=== PATIENT | female | born 2000 | race Hispanic/Latino ===

== ENCOUNTER 2022-05-02 21:48 | Emergency (ER) | payer OTHER ==
--- OUTSIDE RECORDS SUMMARY | 2022-05-02 21:52 | XMS REPORT | Continuity of Care Document ---
:2000 Author Organization [facility] t Address [address] [place] [address] Care Team Providers Name Role Phone Stefany Coffey Primary Care Physician SIDDHARTH HANSEN Attending Clinician Unavailable Nurse, Pob Immunization Attending Clinician Unavailable Siddharth Hansen DO Attending Clinician Nicholas ANGELES Attending Clinician Unavailable Nicholas Rome Attending Clinician INDUCTION Attending Clinician Unavailable Stefany APPIAH Attending Clinician Unavailable Bijal DUNHAM, R Attending Clinician FISH Attending Clinician Unavailable Zeenat WATTS Attending Clinician Unavailable Payers Payer Name Policy Type Policy Number Effective Date Expiration Date Varun walker [facility] [id number] 2020 CHOICE MEDICAID 00:00:00 [facility] [id number] 2015 CHOICE CHIP 00:00:00 Problems Condition Condition Condition Status Onset Resolution Last Treating Co mments Source Name Details Category Date Date Treatment Clinician Date Gestationa Gestationa Disease Active U nivers l l 8-11 ity of hypertensi [place]ens[place] Obesity Obesity Disease Active Univers (BMI (BMI 8-09 ity of 30-39.9) 30-39.9) 00:00: [place] 00 Medical Branch Nausea and Nausea and Disease Active U nivers vomiting vomiting 4-21 ity of during during 00:00: [place] 00 Medi tracy prior to prior to Branch 22 weeks 22 weeks gestation gestation Maternal Maternal Disease Active Overview: Un stevan varicella, varicella, 3-25 Formattin ity of non-immune non-immune 00:00: g of this [place] 00 note Medical might be Branch different from the original. Will address in PP. Primigravi Primigravi Disease Active U nivers da in da in 24 ity of second second 00:00: [place] trimester trimester 00 [facility] Branch Supervisio Supervisio Disease Resolve 2021-03-05 2021-03-05 Univers n of high n of high d 02-05 00:00:00 14:50:25 ity of risk risk 00:00: [place] 00 Medi tracy in second in second Bran ch trimester trimester Allergies, Adverse Reactions, Alerts Allergy Allergy Status Severity Reaction(s) Onset Inactive Treating Comm ents Source Name Type Date Date Clinician NO KNOWN Drug Active Univers ALLERGIE Class ity of S [facility] Social History Social Habit Start Date Stop Date Quantity Comments Source ASSERTION 2020-11-12 University of 00:00:00 [facility] Exposure to Not sure University of SARS-CoV-2 [facility] (event) Branch History [facility] o f Alcohol Comment [place] Med ical Branch Alcohol intake 2021-08-20 2021-08-20 Lifetime University of 00:00:00 00:00:00 non-drinker [facility] (finding) Branch Tobacco use and 2021-03-05 2021-03-05 Never used Universit y of exposure 00:00:00 00:00:00 [place] Medical [facility] History SDOH 2020-12-05 2020-12-05 1 University o f Alcohol Frequency 00:00:00 00:00:00 [place] M edical Branch History SDOH 2020-12-05 2020-12-05 99 University o f Alcohol Std 00:00:00 00:00:00 [place] Medical Drinks Branch History SDWY 2020-12-05 2020-12-05 1 University o f Alcohol Binge 00:00:00 00:00:00 [place] Medic al Branch Sex Assigned At [birth year] Universit y of 00:00:00 00:00:00 [facility] Smoking Status Start Date Stop Date Source Never smoker [facility] Branch Medications Ordered Filled Start Stop Current Ordering Indication Dosage Frequency Signature Comments Components Source Medication Medication Date Date Medication? Clinician (SIG) Name Name KACEY ABEL 2020-11 Yes [id number] 1{tbl} Take 1 Univers (MICROGESTI 0-06 tablet by ity of N FE 12/04) 00:00: mouth [place] 1 mg-20 mcg 00 daily. Medica l (21)/75 mg Branch (7) tablet albuterol 2020-11 Yes [id number] 2{puff} Inhale 2 Univers 90 0-06 Puffs ity of mcg/actuati 00:00: every 6 [place] as on inhaler 00 (six) Medical hours as Branch needed for Wheezing or Shortness of Breath. LOESTRIN FE 2020-11 Yes [id number] 1{tbl} Take 1 Univers (MICROGESTI 0-06 tablet by ity of N FE 12/04) 00:00: mouth [place] 1 mg-20 mcg 00 daily. Medica l (21)/75 mg Branch (7) tablet albuterol 2020-11 Yes [id number] 2{puff} Inhale 2 Univers 90 0-06 Puffs ity of mcg/actuati 00:00: every 6 [place] on inhaler 00 (six) Medical hours as Branch needed for Wheezing or Shortness of Breath. LOESTRIN FE 2020-11 Yes [id number] 1{tbl} Take 1 Univers (MICROGESTI 0-06 tablet by ity of N FE 12/04) 00:00: mouth [place] 1 mg-20 mcg 00 daily. Medica l (21)/75 mg Branch (7) tablet albuterol 2020-11 Yes [id number] 2{puff} Inhale 2 Univers 90 0-06 Puffs ity of mcg/actuati 00:00: every 6 [place] on inhaler 00 (six) Medical hours as Branch needed for Wheezing or Shortness of Breath. docusate Yes [id number] 240mg Take 1 Un stevan calcium 240 8-11 capsule by it y of mg capsule 00:00: mouth [place] 00 daily as Medical needed for Branch Constipati on. ibuprofen Yes [id number] 600mg Take 1 U nivers 600 mg 8-11 tablet by ity of tablet 00:00: mouth [place] 00 every 6 Medical (six) Branch hours as needed (Pain). Take with food or milk. docusate Yes [id number] 240mg Take 1 Un [place] calcium 240 8-11 capsule by it y of mg capsule 00:00: mouth [place] 00 daily as Medical needed for Branch Constipati on. ibuprofen Yes [id number] 600mg Take 1 U nivers 600 mg 8-11 tablet by ity of tablet 00:00: mouth [place] 00 every 6 Medical (six) Branch hours as needed (Pain). Take with food or milk. docusate Yes [id number] 240mg Take 1 Un tsevan calcium 240 8-11 capsule by it y of mg capsule 00:00: mouth once [place] 00 daily as Medical needed for Branch Constipati on. ibuprofen Yes [id number] 600mg Take 1 U nivers 600 mg 8-11 tablet by ity of tablet 00:00: mouth [place] 00 every 6 Medical (six) Branch hours as needed (Pain). Take with food or milk. 2020- No [id number] 1{tbl} Take 1 Univers [id number] 06-25- tablet by it y of fum-folic 00:00: 00:00 mouth [place] () 00 :00 daily. Medical 27 mg iron- Branch 1 mg Tab ferrous 2020- No [id number] 325mg Take 1 Un [place] sulfate 325 06-25 tablet by it y of mg (65 mg 00:00: 00:00 [place] iron) 00 :00 (two) Medical tablet times Branch daily. proMETHazin Yes Nausea and 25mg Take 1 Univers e 25 mg 4-12 vomiting tablet by ity of tablet 00:00: during mouth 00 every 4 Medical prior to 22 (four) Branch weeks hours as gestation needed for Nausea and Vomiting (N/V). levalbutero Yes History of 1{puff} Inhale 1-2 Univers l 45 3-25 asthma Puffs ity of mcg/actuati 00:00: every 4 [place] as on inhaler 00 (four) Medical hours as Branch needed for Wheezing. albuterol Yes History of 2{puff} Inhale 2 Univers 90 3-24 asthma Puffs ity of mcg/actuati 00:00: every 6 [place] on inhaler 00 (six) Medical hours as Branch needed for Wheezing or Shortness of Breath. Yes Positive 1{tbl} Take 1 U nivers vit w/iron 1-21 tablet by ity of fumarate 00:00: test mouth [place] and FA 00 daily. Medical ( Branch VITAMIN WITH MINERALS) tablet SELECT-OB + Yes Univer s DHA 29 mg 1-21 ity of iron-1 mg 00:00: [place] -250 mg 00 Medical combo pack Branch Immunizations Ordered Filled Immunization Date Status Comments [facility] e Immunization Name Name SARS-COV-2 COVID-19 2021-11-14 Completed Unive rsity of PFIZER VACCINE 00:00:00 [facility] SARS-COV-2 COVID-19 2021-10-15 Completed Unive rsity of PFIZER VACCINE 00:00:00 [facility] SARS-COV-2 COVID-19 2021-10-15 Completed Unive rsity of PFIZER VACCINE 00:00:00 [facility] TDAP 2021-05-26 Completed University 00:00:00 [facility] TDAP 2021-05-26 Completed [facility] 00:00:00 [facility] TDAP 2021-05-26 Completed [facility] 00:00:00 [facility] Vital Signs Vital Name Observation Time Observation Value Comments Source Systolic blood 2021-08-20 18:34:00 113 mm[Hg] Univer sity of pressure [facility] Diastolic blood 2021-08-20 18:34:00 72 mm[Hg] Unive rsity of pressure [facility] Heart rate 2021-08-20 18:34:00 81 /min [facility] Body temperature 2021-08-20 18:34:00 37 [place] [facility] Respiratory rate 2021-08-20 18:34:00 18 /min [facility] Body height 2021-08-20 18:34:00 157.5 cm [facility] Body weight 2021-08-20 18:34:00 75.388 kg [facility] BMI 2021-08-20 18:34:00 30.40 kg/m2 [facility] Body mass index 2021-08-20 18:34:00 93.76 % Unive rsity of (BMI) [Percentile] [facility] ical Per age and sex Branch Procedures Procedure Date / Time Performed Performing Clinician Sour e SARS-COV-2 COVID-19 2021-11-14 21:27:24 Doctor Unassigned, No Un iversity of [place] VACCINE,0.3ML,IM Name Medical Branch (PFIZER) SARS-COV-2 COVID-19 2021-10-15 19:38:05 Doctor Unassigned, No Un iversity of [place] VACCINE,0.3ML,IM Name Medical Branch (PFIZER) POCT TEST 2021-08-20 19:03:00 [place] [facility] Plan of Care Planned Activity Planned Date Details Comments Source Future Scheduled 2022-02-05 DTaP,Tdap,and Td Postponed from Unive rsity of Test 00:00:00 Vaccines (1 - Tdap) 2020 [place] Me dical [code = (Alternative Branch DTaP,Tdap,and Td Guidelines) Vaccines (1 - Tdap)] Future Scheduled 2022-02-05 MENINGOCOCCAL B Postponed from Univer sity of Test 00:00:00 VACCINES (1 of 2 - 2011 [place] Med ical Risk Bexsero 2-dose ( or Branch series) [code = ) MENINGOCOCCAL B VACCINES (1 of 2 - Risk Bexsero 2-dose series)] Future Scheduled 2022-02-05 VARICELLA VACCINES Postponed from Uni versity of Test 00:00:00 (1 of 2 - 2-dose 2002 [place] Medic al childhood series) ( or Branch [code = VARICELLA ) VACCINES (1 of 2 - 2-dose childhood series)] Future Scheduled 2022-02-05 Well child visit Univers ity of Test 00:00:00 (procedure) [code = [place] Me dical [id number]] Branch Future Scheduled 2022-02-05 Screening for University of Test 00:00:00 Chlamydia [place] Medical trachomatis Branch (procedure) [code = 692252931] Future Scheduled 2022-01-27 HPV VACCINES (1 - Postponed from Univ ersity of Test 00:00:00 2-dose series) [code 2012 [place] M edical = HPV VACCINES (1 - ( or Branch 2-dose series)] ) Future Scheduled 2021-12-26 Depression screening Uni versity of Test 00:00:00 (procedure) [code = [place] Me dical [id number]] Branch Future Scheduled 2021-07-16 INFLUENZA VACCINE Univer sity of Test 00:00:00 (Season Ended) [code [place] M edical = INFLUENZA VACCINE Branch (Season Ended)] Future Scheduled 2019 Hepatitis C University of Test 00:00:00 screening [place] Medical (procedure) [code = Branch [id number]] Future Scheduled 2017 SARS-CoV-2 University of Test 00:00:00 (COVID-19) Vaccine [place] Med ical (1) [code = Branch SARS-CoV-2 (COVID-19) Vaccine (1)] Encounters Start End Encounter Admission Attending Care Care Encounter Source Date/Time Date/Time Type Type Clinicians Facility Department ID 2021-09-15 Outpatient [facility] [id number] Univers 14:15:47 [facility] 2021-11-14 2021-11-14 Outpatient Stefany HANSEN [facility] [id number] Univers 15:30:00 15:30:00 EVAN [facility] 2021-11-14 2021-11-14 Imm/Inj Nurse, Adc Pob Immunization [facility] [id number] Univers 15:30:00 15:30:00 Visit Evan Hansen [id number] [facility] [id number] Nashmiguel a varun PROFESSIO [phone] Me dical NAL [address] Branch [facility] 2021-11-13 2021-11-13 Outpatient Stefany ANGELES [facility] [id number] Univers 12:45:00 12:45:00 SADE [id number] [facility] 2021-11-13 2021-11-13 Outpatient Stefany ANGELES [facility] [id number] Univers 12:45:00 12:45:00 SADE [facility] 2021-11-10 2021-11-10 Outpatient Stefany HANSEN [facility] [id number] Univers 10:50:00 10:50:00 EVAN ginger [facility] 2021 2021 Outpatient Stefany HANSEN [facility] [id number] Univers 08:30:00 08:30:00 EVAN ginger [facility] 2021-10-15 2021-10-15 Outpatient Stefany HANSEN [facility] [id number] Univers 13:00:00 13:02:34 EVAN ginger [facility] 2021-10-15 2021-10-15 Imm/Inj Nurse, Adc Pob Immunization [facility] [id number] Univers 12:58:49 13:02:[address] [facility] [id number] ity [facility] [id number] [place] PROF[place] [phone] [place] [address] 2021-08-20 2021-08-20 Office Karthik [facility] [id number] Univers 13:12:36 14:00:07 Visit Sade Peterson [employer] [id number] it y [facility] [id number] [place] as MATERNAL [phone] Med ical & CHILD [address] [place] [address] 2021-08-20 2021-08-20 Outpatient Stefany ANGELES [facility] [id number] Univers 13:15:00 13:15:00 SADE [id number] [facility] 2021-08-20 2021-08-20 Outpatient Stefany ANGELES [facility] [id number] Univers 13:15:00 13:15:00 SADE ginger [facility] 2021-08-07 2021-08-07 Outpatient Stefany ANGELES [facility] [id number] Univers 10:15:00 10:15:00 SADE [id number] [facility] 2021-08-07 2021-08-07 Outpatient Stefany ANGELES [facility] [id number] Univers 10:15:00 10:15:00 SADE dee [facility] 2021-08-05 2021-08-05 Outpatient Stefany ANGELES [facility] [id number] Univers 11:00:00 11:00:00 SADE [id number] [facility] 2021-08-05 2021-08-05 Outpatient Stefany ANGELES [facility] [id number] Univers 11:00:00 11:00:00 SADE itginger [facility] 2021-07-29 2021-07-29 Outpatient INDUCTION, [facility] [id number] Univers 08:00:00 08:00:00 MAYLIN [id number] ity [facility] 2021-07-15 2021-07-15 Outpatient R KARTHIK, [facility] [id number] Univers 10:45:00 10:45:00 SADE dee [facility] 2021-07-07 2021-07-07 Outpatient R APPIAH, [facility] [id number] Univers 08:15:00 08:15:[id number] ity [address] [facility] 2021-07-07 2021-07-07 Outpatient R APPIAH, [facility] [id number] Univers 08:15:00 08:15:00 LYNSEYNDA ity o f [facility] 2021-06-25 2021-06-25 Outpatient R BIJAL, [facility] [id number] Univers 08:45:00 08:45:[id number] it[address] [facility] 2021-06-25 2021-06-25 Outpatient R APPIAH, [facility] [id number] Univers 08:45:00 08:45:00 ROSYURINDA ity o f [facility] 2021-06-23 2021-06-23 Outpatient R BIJAL, [facility] [id number] Univers 18:00:00 18:00:00 MICHAEL [id number] ity o f [facility] 2021-06-23 2021-06-23 Outpatient R BIJAL, [facility] [id number] Univers 18:00:00 18:00:00 LYNSEYNDA ity o f [facility] 2021-06-11 2021-06-11 Outpatient R BIJAL [facility] [id number] Univers 10:45:00 10:45:00 LYNSEYNDMiguel A [id number] ity o f [facility] 2021-06-11 2021-06-11 Outpatient R APPIAH, [facility] [id number] Univers 10:45:00 10:45:00 ROSYURINDA ity o f [facility] 2021-05-26 2021-05-26 Outpatient R BIJAL [facility] [id number] Univers 16:15:00 16:15:00 MICHAEL [id number] ity o f [facility] 2021-05-26 2021-05-26 Outpatient R BIJAL [facility] [id number] Univers 16:15:00 16:15:00 MICHAEL ity o f [facility] 2021-05-20 2021-05-20 Outpatient R BIJAL [facility] [id number] Univers 09:30:00 09:30:00 MICHAEL [id number] ity o f [facility] 2021-05-20 2021-05-20 Outpatient R BIJAL [facility] [id number] Univers 09:30:00 09:30:[address] [facility] 2021-05-08 2021-05-08 Outpatient R [facility] [id number] Univers 08:30:00 08:30:00 [id number] ity of [facility] 2021-05-08 2021-05-08 Outpatient R [facility] [id number] Univers 08:30:00 08:30:00 ity of [facility] 2021-05-07 2021-05-07 Outpatient R [facility] [id number] Univers 08:00:00 08:00:00 [id number] ity [facility] 2021-05-07 2021-05-07 Outpatient R [facility] [id number] Univers 08:00:00 08:00:00 ity of [facility] 2021-05-05 2021-05-05 Outpatient R BIJAL [facility] [id number] Univers 10:45:00 10:45:00 LYNSEYNDMiguel A [id number] ity o [facility] 2021-05-05 2021-05-05 Outpatient R BIJAL [facility] [id number] Univers 10:45:00 10:45:[address] [facility] 2021-04-07 2021-04-07 Outpatient R BIJAL [facility] [id number] Univers 13:45:00 13:45:00 MICHAEL [id number] ity o f [facility] 2021-04-07 2021-04-07 Outpatient R BIJAL [facility] [id number] Univers 13:45:00 13:45:00 MICHAEL ity o f [facility] 2021-04-02 2021-04-02 Outpatient R BIJAL [facility] [id number] Univers 09:30:00 09:30:00 MICHAEL [id number] ity o f [facility] 2021-04-02 2021-04-02 Outpatient R BIJAL [facility] [id number] Univers 09:30:00 09:30:00 MICHAEL ity o f [facility] 2021-03-19 2021-03-19 Outpatient R [facility] [id number] Univers 08:30:00 08:30:00 [id number] [facility] 2021-03-19 2021-03-19 Outpatient P [facility] [id number] Univers 08:30:00 08:30:00 ity [facility] 2021-03-05 2021-03-05 Outpatient R BIJAL [facility] [id number] Univers 09:00:00 09:00:00 MICHAEL [id number] ity o f [facility] 2021-03-05 2021-03-05 Outpatient R BIJAL [facility] [id number] Univers 09:00:00 09:00:00 MICHAEL ity o f [facility] 2021-02-10 2021-02-10 Outpatient [facility] [id number] Univers 08:15:00 08:15:00 [id number] ity [facility] 2021-02-10 2021-02-10 Outpatient R BIJAL [facility] [id number] Univers 08:15:00 08:15:[address] [facility] 2021-02-05 2021-02-05 Outpatient BIJAL [facility] [id number] Univers 13:30:00 13:30:00 MICHAEL [id number] ity o f [facility] 2021-02-05 2021-02-05 Outpatient R BIJAL [facility] [id number] Univers 13:00:00 13:00:00 TIMA ity o f [facility] 2021-01-23 2021-01-23 Outpatient R SRIKANTH ZARATE [facility] [id number] Univers 10:30:00 10:30:00 [id number] ity [facility] 2021-01-23 2021-01-23 Outpatient R SRIKANTH ZARATE [facility] [id number] Univers 10:30:00 10:30:00 ity of [facility] 2020-12-26 2020-12-26 Outpatient R SRIKANTH ZARATE [facility] [id number] Univers 10:30:00 10:30:00 [id number] ity [facility] 2020-12-26 2020-12-26 Outpatient R SRIKANTH ZARATE [facility] [id number] Univers 10:30:00 10:30:00 ity [facility] 2020-12-07 2020-12-07 Outpatient R [facility] [id number] Univers 09:15:00 09:15:00 [id number] ity [facility] 2020-12-07 2020-12-07 Outpatient R [facility] [id number] Univers [facility]:15:[facility] 2020-12-05 Outpatient R SRIKANTH ZARATE [facility] [id number] Univers 11:00:00 11:00:00 [id number] ity [facility] 2020-12-05 2020-12-05 Outpatient R SRIKANTH ZARATE [facility] [id number] Univers 11:00:00 11:00:00 ity [facility] 2020-11-27 2020-11-27 Outpatient AKINSIPE [facility] [id number] Univers 14:30:00 14:30:00 [place] [id number] ity o f [facility] Results Test Description Test Time Test Comments Results Result Comments Source POCT TEST 2021-08-20 19:03:00 Test Item Value Reference Range Interpretation Comme nts POCT PREG (test code = 1605) Negative On board controls acceptable with C Line (test code = 3574) Yes POCT PREG LOT # (test code = 3575) POCT PREG TEST DATE (test code = 3576) [facility]
[2022-05-02 22:50] LABS: Urine Blood Negative (Negative); Urine Glucose Negative (Negative); Urine Protein Negative (Negative); Urine Specific Gravity >=1.030 (1.005-1.030); Urine pH 6.5 (5.0-7.0)
[2022-05-02 23:16] LABS: Absolute Lymphocytes (CBC) 2.7 K/uL (0.7-4.9); Hematocrit 40.1 % (36.0-45.0); Lymphocytes % 35.1 % (15.3-44.8); MPV 8.2 fL (7.6-11.3); RBC Red Blood Cell Count 4.56 M/uL (3.86-4.86)
[2022-05-02] MEDS ORDERED: MORPHINE 4 MG/ML SYR ONE (23:20)
[2022-05-02] MEDS ORDERED: ONDANSETRON 4 MG/2 ML VIAL ONE (23:20)
[2022-05-02 23:37] LABS: Albumin 3.3 g/dL (3.4-5.0); Bilirubin Total 0.1 mg/dL (0.2-1.0); Potassium 3.7 mmol/L (3.5-5.1)
--- NOTE | 2022-05-03 04:58 | ER ---
Nurse's Notes [facility] Name: Yesy Mcdonnell Age: 21 yrs Sex: Female : 2000 Arrival Date: 05/02/2022 Time: 21:51 Bed 15 Private MD: Diagnosis: Lower abdominal pain, unspecified Presentation: 05/02 22:08 Chief complaint: Patient states: Lower abdominal pain since yesterday getting worse ke1 today. Coronavirus screen: Vaccine status: Patient reports receiving the 2nd dose of the covid vaccine. Ebola Screen: No symptoms or risks identified at this time. Risk Assessment: Do you want to hurt yourself or someone else? Patient reports no desire to harm self or others. Onset of symptoms was May 01, 2022 at 09:00. 22:08 Method Of Arrival: Ambulatory ke1 22:08 Acuity: ZAIRA 3 ke1 22:19 Initial Sepsis Screen: Does the patient meet any 2 criteria? No. Patient's initial ke1 sepsis screen is negative. Does the patient have a suspected source of infection? No. Patient's initial sepsis screen is negative. Triage Assessment: 22:12 Pain: Complains of pain in pelvis. GI: Abdomen is round non-distended. ke1 22:19 General: Appears in no apparent distress. Behavior is appropriate for age. ke1 Historical: - Allergies: 22:11 No Known Allergies; ke1 - PMHx: 22:12 None; ke1 - PSHx: 22:12 None; ke1 - Immunization history:: Client reports receiving the 2nd dose of the Covid vaccine. - Social history:: Smoking status: Patient denies any tobacco usage or history of. Screenin:19 Abuse screen: Denies threats or abuse. Nutritional screening: No deficits noted. ke1 Tuberculosis screening: No symptoms or risk factors identified. Fall Risk None identified. Assessment: 23:20 GI: Bowel sounds present X 4 quads. ke1 23:20 GI: Abd is soft. ke1 05/03 00:00 Reassessment: Patient appears in no apparent distress at this time. Patient states ke1 feeling better. Patient states symptoms have improved. 01:00 Reassessment: No changes from previously documented assessment. ke1 02:00 Reassessment: No changes from previously documented assessment. ke1 04:45 Reassessment: No changes from previously documented assessment. ke1 Vital Signs: 05/02 22:13 BP 119 / 75; Pulse 91; Resp 17; Temp 98.7(O); Weight 77.11 kg; Height 5 ft. 2 in. ke1 (157.48 cm); Pain 9/10; 05/03 02:01 BP 114 / 69; Pulse 71; Resp 18; Pulse Ox 99% on R/A; ke1 05/02 22:13 Body Mass Index 31.09 (77.11 kg, 157.48 cm) ke1 ED Course: 05/02 21:51 Patient arrived in ED. [facility] 21:56 Juno Titus PA is PHCP. [facility] 21:56 Robert Macario MD is Attending Physician. [facility] 22:08 Robe Da Silva RN is Primary Nurse. ke1 22:10 Triage completed. ke1 23:19 Inserted saline lock: 20 gauge in left antecubital area, using aseptic technique. ke1 23:20 Arm band placed on. ke1 23:20 Bed in low position. Call light in reach. ke1 05/03 00:37 US Pelvis Complete In Process Unspecified. EDMS 02:32 CT Abd/Pelvis - IV Contrast Only In Process Unspecified. EDMS 05:03 No provider procedures requiring assistance completed. ke1 Administered Medications: 05/02 23:19 Drug: Zofran (Ondansetron) 4 mg Route: IVP; Site: left antecubital; ke1 23:45 Follow up: Response: Marked relief of symptoms ke1 23:19 Drug: morphine 4 mg Route: IVP; Infused Over: 4 mins; Site: left antecubital; ke1 23:50 Follow up: Response: Marked relief of symptoms ke1 Outcome: 05/03 04:57 Discharge ordered by . rn 05:03 Discharged to home ambulatory. ke1 05:03 Condition: good 05:03 Discharge instructions given to patient. 05:10 Patient left the ED. ke1 Signatures: Dispatcher [employer] EDMS Juno Titus PA PA jmm Nieto, Roman, MD MD rn Alexander, Jessica [facility] Robe Da Silva RN RN [facility] Corrections: (The following items were deleted from the chart) 01:55 05/02 23:20 GI: Abd is soft ke1 ke1
--- NOTE | 2022-05-03 04:58 | EDPHYS ---
Physician Documentation [facility] Name: Yesy Mcdonnell Age: 21 yrs Sex: Female : 2000 Arrival Date: 05/02/2022 Time: 21:51 Bed 15 Private MD: ED Physician Robert Macario HPI: 05/02 22:13 This 21 yrs old Female presents to ER via Ambulatory with complaints of jmm Abdominal Cramping. 22:13 The patient presents with pelvic pain. Onset: The symptoms/episode began/occurred jmm gradually, 1 day(s) ago. This is a 21-year-old female with no chronic medical conditions that presents to the emergency department with complaints of pelvic pain which radiates to her back. Pain is mainly to the right lower pelvic region. Patient denies vomiting or diarrhea. Denies fever. Patient denies vaginal discharge. Patient denies dysuria.. Historical: - Allergies: 22:11 No Known Allergies; ke1 - PMHx: 22:12 None; ke1 - PSHx: 22:12 None; ke1 - Immunization history:: Client reports receiving the 2nd dose of the Covid vaccine. - Social history:: Smoking status: Patient denies any tobacco usage or history of. ROS: 22:13 Constitutional: Negative for fever, chills, and weight loss, Cardiovascular: Negative jmm for chest pain, palpitations, and edema, Respiratory: Negative for shortness of breath, cough, wheezing, and pleuritic chest pain. 22:13 : Positive for pelvic pain. 22:13 All other systems are negative. Exam: 22:13 Constitutional: This is a well developed, well nourished patient who is awake, alert, jmm and in no acute distress. Head/Face: atraumatic. Eyes: EOMI, no conjunctival erythema appreciated ENT: Moist Mucus Membranes Neck: Trachea midline, Supple Chest/axilla: Normal chest wall appearance and motion. Cardiovascular: Regular rate and rhythm. No edema appreciated Respiratory: Normal respirations, no respiratory distress appreciated 22:13 Back: Normal ROM Skin: General appearance color normal MS/ Extremity: Moves all extremities, no obvious deformities appreciated, no edema noted to the lower extremities Neuro: Awake and alert Psych: Behavior is normal, Mood is normal, Patient is cooperative and pleasant 22:13 Abdomen/GI: Inspection: abdomen appears normal, Bowel sounds: normal, Palpation: soft, mild abdominal tenderness, in the suprapubic area. Vital Signs: 22:13 BP 119 / 75; Pulse 91; Resp 17; Temp 98.7(O); Weight 77.11 kg; Height 5 ft. 2 in. ke1 (157.48 cm); Pain 9/10; 05/03 02:01 BP 114 / 69; Pulse 71; Resp 18; Pulse Ox 99% on R/A; ke1 05/02 22:13 Body Mass Index 31.09 (77.11 kg, 157.48 cm) ke1 MDM: 05/02 22:13 Patient medically screened. [facility] 05/03 04:50 Differential diagnosis: , ectopic , ovarian cyst, pelvic pain, abd rn pain. Data reviewed: vital signs, nurses notes, lab test result(s), radiologic studies, ultrasound, and as a result, I will discharge patient. Counseling: I had a detailed discussion with the patient and/or guardian regarding: the historical points, exam findings, and any diagnostic results supporting the discharge/admit diagnosis, lab results, radiology results, the need for outpatient follow up, to return to the emergency department if symptoms worsen or persist or if there are any questions or concerns that arise at home. ED course: Pt left to me by Juno Titus at shift change pending ct abdomen. States u/s normal. Plan was to dc if ct abdomen neg.. 04:57 Response to treatment: the patient's symptoms have markedly improved after treatment, rn and as a result, I will discharge patient. Special discussion: Based on the patient's Hx, exam, and Dx evaluation, there is no indication for emergent surgery or inpatient Tx. It is understood by the patient/guardian that if the Sx's persist or worsen they need to return immediately for re-evaluation. I discussed with the patient/guardian in detail that at this point there is no indication for admission to the hospital. It is understood, however, that if the symptoms persist or worsen the patient needs to return immediately for re-evaluation. 05/02 22:13 Order name: CBC with Diff; Complete Time: 23:19 [facility] 05/02 22:13 Order name: CMP; Complete Time: 23:38 [facility] 05/02 22:13 Order name: Lipase; Complete Time: 23:38 [facility] 05/02 22:17 Order name: US Pelvis Complete [facility] 05/02 22:51 Order name: Urine Dipstick-Ancillary; Complete Time: 23:00 [facility] 05/02 22:13 Order name: IV Saline Lock; Complete Time: 23:19 [facility] 05/02 22:13 Order name: Urine Dipstick-Ancillary (obtain specimen); Complete Time: 22:55 [facility] 05/02 22:13 Order name: Urine Test (obtain specimen); Complete Time: 22:55 [facility] 05/03 00:06 Order name: CT Abd/Pelvis - IV Contrast Only [facility] Administered Medications: 05/02 23:19 Drug: Zofran (Ondansetron) 4 mg Route: IVP; Site: left antecubital; ke1 23:45 Follow up: Response: Marked relief of symptoms 1 23:19 Drug: morphine 4 mg Route: IVP; Infused Over: 4 mins; Site: left antecubital; ke1 23:50 Follow up: Response: Marked relief of symptoms 1 Disposition: 05/03 06:06 Co-signature as Attending Physician, Robert Macario MD. rn Disposition Summary: 05/03/22 04:57 Discharge Ordered Location: Home rn Problem: new rn Symptoms: have improved rn Condition: Stable rn Diagnosis - Lower abdominal pain, unspecified rn Followup: rn - With: Private Physician - When: As needed - Reason: Recheck today's complaints, Re-evaluation by your physician Discharge Instructions: - Discharge Summary Sheet rn - Abdominal Pain, Adult rn - Pain Without a Known Cause rn - Pelvic Pain, Female rn Forms: - Medication Reconciliation Form rn - Thank You Letter rn - Antibiotic title attorney - Prescription Opioid Use rn Signatures: Dispatcher [employer] MS Juno Titus PA PA jmm Nieto, Roman, MD MD rn Ebrottie, Kouassi, RN RN ke1
[2022-05-03 05:20] VITALS: TEMP 98.7
[2022-05-03 05:22] VITALS: BP 114/69; O2SAT 99
--- NOTE | 2022-05-04 13:19 | RAD REPORT ---
EXAM DESCRIPTION: CT - Abdomen Pelvis W Contrast - 05/03/2022 6:51 am COMPARISON: None CLINICAL HISTORY: [facility] MAIN TECHNIQUE: Multiple helical axial images were obtained through the abdomen and pelvis using intraven ous contrast. Coronal and sagittal reformatted images were obtained. All CT scans at this facility use dose modulation, iterative reconstruction, and/or weight-based dosi ng when appropriate to reduce radiation dose to as low as reasonably achievable. FINDINGS: Lung bases: Appear unremarkable. Liver: There is low-attenuation suggesting fatty changes. Gallbladder/biliary: Appears unremarkable Pancreas: Unremarkable. No evidence of ductal enlargement. Spleen: Appears unremarkable. No splenomegaly. Adrenals: Unremarkable. Kidneys and ureters: No evidence of hydronephrosis. Normal enhancement. Bladder: Unremarkable. Pelvic organs: Unremarkable. Bowel: No evidence of bowel obstruction. No bowel wall thickening. Appendix appears unremarkable. Vasculature: Unremarkable. Peritoneum: No free air. No significant free fluid. Lymph nodes: Unremarkable. Soft tissues: Unremarkable. Bones: Unremarkable. IMPRESSION: 1. No evidence for an acute process within the abdomen or pelvis. 2. Hepatic steatosis. Electronically signed by: Nuno Olson MD 05/03/2022 4:49 AM CDT Due to temporary technical issues with the PACS/Fluency reporting system, reports are being signed by the in house radiologist without review as a courtesy to ensure prompt reporting. The interpreting r adiologist is fully responsible for the content of the report.
--- NOTE | 2022-05-04 13:23 | RAD REPORT ---
EXAM DESCRIPTION: US - Pelvis Complete - 05/03/2022 12:35 am CLINICAL HISTORY: 21 years Female pelvic pain TECHNIQUE: Transabdominal ultrasound with color doppler and spectral imaging analysis. Comparison: None FINDINGS: Uterus: Retroverted 10.7 x 4.0 x 3.8 cm. No uterine masses. Endometrial thickness measurin g 3 mm. Right ovary: Measures 3.0 x 2.4 x 2.5 cm. Normal vascular flow on Doppler. Left ovary: Measures 2.1 x 1.8 x 1.9 cm. Normal vascular flow on Doppler. Adnexa: Unremarkable Fluid: None. IMPRESSION: Vascular flow is demonstrated in both ovaries. Electronically signed by: Abran Tracey MD 05/03/2022 1:36 AM CDT Due to temporary technical issues with the PACS/Fluency reporting system, reports are being signed by the in house radiologist without review as a courtesy to ensure prompt reporting. The interpreting r adiologist is fully responsible for the content of the report.
== END 2022-05-03 05:10 | disposition home or self-care (01) ==
LOC: ER 21:48
DX: R10.31 Right lower quadrant pain (principal)
CPT/HCPCS: 85025; 36415; 81003; 83690; 80053; 74177; 76856; Q9967; J2405; 96374; 96375; 99283

== ENCOUNTER 2025-06-29 19:23 | Emergency (ER) | payer OTHER ==
--- OUTSIDE RECORDS SUMMARY | 2025-06-29 19:40 | XMS REPORT | Continuity of Care Document ---
Author Name Unknown Address [address] [facility] [place] [address] Organization [facility] [place] Address [address] [facility] [place] [address] Care Team Providers Care Program Architect Name Role Phone Tanisha Rome Primary Care Physician LUIS ANTONIO HARVEY Attending Clinician Unavailable LUIS ANTONIO HARVEY Attending Clinician Unavailable Luis Antonio Harvey MD Attending Clinician [phone] Beatriz Nix Attending Clinician [phone] Marian NINO, Gabi Brunson Attending Clinician [phone] Torrey NINO, Renato Bond Attending Clinician [phone] Reese Pastrana MD Attending Clinician [phone] Quin ESCOBAR, R Attending Clinician [phone] Doctor Unassigned, [place] Attending Clinician U navailable Julieta DO, Devan Attending Clinician [phone] JULIETA, DEVAN Attending Clinician Unavailable JULIETA, DEVAN Attending Clinician Unavailable Pro NINO, Rachelle Guevara Attending Clinician + Susana ZHANG, Fani Olivo Attending Clinician Unavailab Osiel Andrews Attending Clinician [phone], [facility] Attending Clinician Unavailable Rustam Hamlin MD Attending Clinician + RUSTAM HAMLIN Attending Clinician Unav ailable RUSTAM HAMLIN Attending Clinician Unav ailable Eugenia PRIEST, Domitila A Attending Clinician Unavail able CHARLY HANSEN Attending Clinician Unavailable CHARLY HANSEN Attending Clinician Unavailable OLIMPIA PAUL Attending Clinician OLIMPIA Bae Attending Clinician Edmundo Smith MD Attending Clinician [phone] Beverly NINO, Olimpia Attending Clinician + [phone] Karen Bradford RN Attending Clinician UnavailGEOFF Hansen Attending Clinician Unavailable GEOFF PERKINS Attending Clinician Unavailable GEOFF PERKINS Attending Clinician Unavailable Ultrasound, Rosalia Attending Clinician Unavaila jade Perkins MD, Geoff Attending Clinician [phone] DAYAMI ALBA Attending Clinician Unavailable Dayami Alba DNP Attending Clinician [phone] LA JEAN Attending Clinician Unavail able AkinLa Herman Attending Clinician + MAYLIN JAMISON Attending Clinician Unavailable Ruddy Cain MD Attending Clinicia n Williams Peñaloza MD Attending Clinician + [phone] Sapna Flores RN Attending Clinician Unavailable Doctor Unassigned, [place] Attending Clinician U navailable Lab, Ang-Rmchp Attending Clinician Unavailable KAREN DO Attending Clinician Unavailable Risk, Ucv-Snagu-Hm/High Attending Clinician Unav ailable Karen Quintanilla Attending Clinician + [phone] CINDY OWENS Attending Clinician Unavaila jade Provider, MimiRmjillian Temp Attending Clinician Marina vailaCindy Ventura CNM Attending Clinician [phone] Abby Aly MD Attending Clinician +[phone] ABBY ALY Attending Clinician Unavailable Visit, MimiRmchjoao Nurse Attending Clinician Unava sobia Green RN, Charleen Attending Clinician Unavailabl jasmine Lemus RPHDl Attending Clinician Unavailable Faculty, Shayan Brasher Mfm Attending Clinician Unava sobia DUNHAM, Nazia Mccall Attending Clinician + [phone] KALEY VOGT Attending Clinician UnavailKALEY Knox Attending Clinician Unavailabl jasmine Coley MD, Polanco Attending Clinician + AIRAM STEELE Attending Clinician Unav ailNAZIA Mata Attending Clinician Unavailab EVAN Tineo Attending Clinician Unavail able Nurse, Adc Pob Immunization Attending Clinician Unavailable Evan Hansen DO Attending Clinician [phone] COLETTE ANGELES Attending Clinician Unavailjamari Angeles [employer] SUPER[employer]OR, Colette Peterson Attending Clinician [phone] Charly Hansen MD Attending Clinician [phone] SRIKANTH HOWARD Attending Clinician Unavailable Pob, Adc Lab Main Attending Clinician UnavailSrikanth Wei MD Attending Clinician [phone] LUIS ANTONIO HARVEY Admitting Clinician Unavailable OLIMPIA PAUL Admitting Clinician Unamiesha HARVEY LUIS ANTONIO CAM Admitting Clinician Unavailable Wes NINO, Luis Antonio Cuevas Admitting Clinician [phone] Olimpia Paul MD Admitting Clinician + [phone] Geoff Perkins MD Admitting Clinician [phone] Payers Payer Name Policy Type Policy Number Effective Date Expirati on Date Source [facility] [id number] 2024 00:00:00 [place] [id number] 2024 00:00:00 [facility] CHIP [id number] 2015 00:00:00 Problems Condition Name Condition Details Condition Category Status Onset Date Resolution Date Last Treatment Date Treating Clinician Comments Source 34 weeks gestation of 34 weeks gestation of Disease Active 4 00:00: 00 [facility] Gestationa l hypertensi on Gestationa l hypertensi on Disease Active 06-25 00:00: 00 [facility] Obesity (BMI 30-39.9) Obesity (BMI 30-39.9) Disease Active 8-09 00:00: 00 [facility] Maternal varicella, non-immune Maternal varicella, non-immune Disease Active 3-25 00:00: 00 Overview: Formattin g of this note might be different from the original. Will address in PP. [facility] Normal labor Normal labor Disease Resolve d 0 5-21 00:00: 00 2025-05-25 00:00:00 2025-05-25 09:38:49 [facility] 38 weeks gestation of 38 weeks gestation of Disease Resolve d 0 5- 00:00: 00 2025-05-25 00:00:00 2025-05-25 09:38:48 [facility] Uterine contractio ns at greater than 20 weeks of gestation Uterine contractio ns at greater than 20 weeks of gestation Disease Resolve d 0 5- 00:00: 00 2025-05-25 00:00:00 2025-05-25 09:38:58 [facility] History of delivery History of delivery Disease Resolve d 2023-11 1-25 00:00: 00 2025-05-25 00:00:00 2025-05-25 09:38:50 [facility] Liveborn infant, of verdin , born in hospital by vaginal delivery Liveborn infant, of verdin , born in hospital by vaginal delivery Disease Resolve d 0 3-21 00:00: 00 2025-05-25 00:00:00 2025-05-25 09:38:51 [facility] Asthma affecting , antepartum Asthma affecting , antepartum Disease Resolve d 2021-11 1-27 00:00: 00 2025-05-25 00:00:00 2025-05-25 09:36:30 [facility] Abnormal thyroid blood test Abnormal thyroid blood test Disease Resolve d 2021-11 0-25 00:00: 00 2025-05-25 00:00:00 2025-05-25 09:38:53 Overview: Formattin g of this note might be different from the original. consulted with Orly Maradiaga - Will not start on meds at this time. Please collect TFTs in 3- 4 wks. [facility] High-risk in third trimester High-risk in third trimester Disease Resolve d 2021-0 8-19 00:00: 00 2025-05-25 00:00:00 2025-05-25 09:36:30 [facility] Supervisio n of high risk , antepartum Supervisio n of high risk , antepartum Disease Resolve d 2020-0 3-24 00:00: 00 2025-05-25 00:00:00 2025-05-25 09:38:56 [facility] BV (bacterial vaginosis) BV (bacterial vaginosis) Disease Resolve d 2024-0 5-10 00:00: 00 2025-04-04 00:00:00 2025-04-04 10:37:39 [facility] Left chest pressure Left chest pressure Disease Resolve d 2024-0 5-09 00:00: 00 2025-04-04 00:00:00 2025-04-04 10:37:35 [facility] uterine contractio ns in third trimester, antepartum uterine contractio ns in third trimester, antepartum Disease Resolve d 2024-0 5-09 00:00: 00 2025-04-04 00:00:00 2025-04-04 10:37:33 [facility] Vaginal discharge during in third trimester Vaginal discharge during in third trimester Disease Resolve d 2024-0 4-23 00:00: 00 2025-04-04 00:00:00 2025-04-04 10:37:31 [facility] Decreased movements in third trimester, single or unspecifie d fetus Decreased movements in third trimester, single or unspecifie d fetus Disease Resolve d 2024-0 2-27 00:00: 00 2025-04-04 00:00:00 2025-04-04 10:37:38 [facility] 36 weeks gestation of 36 weeks gestation of Disease Resolve d 2024-0 4-23 00:00: 00 2025-03-30 00:00:00 2025-03-30 10:14:48 [facility] 26 weeks gestation of 26 weeks gestation of Disease Resolve d 2024-0 2-27 00:00: 00 2025-01-26 00:00:00 2025-01-26 12:46:55 [facility] Nausea and vomiting during prior to 22 weeks gestation Nausea and vomiting during prior to 22 weeks gestation Disease Resolve d 2020-0 4-21 00:00: 00 2025-01-11 00:00:00 2025-01-11 10:47:06 [facility] Routine follow-up Routine follow-up Disease Resolve d 2022-0 4-12 00:00: 00 2023-03-23 00:00:00 2023-03-23 14:52:19 [facility] Obesity in Obesity in Disease Resolve d 2020-0 7-28 00:00: 00 2023-03-23 00:00:00 2023-03-23 14:50:39 [facility] Oligohydra mnios in third trimester Oligohydra mnios in third trimester Disease Resolve d 2022-0 3-21 00:00: 00 2023-02-24 00:00:00 2023-02-24 16:00:07 [facility] Back pain affecting Back pain affecting Disease Resolve d 2021-1 1-27 00:00: 00 2023-02-24 00:00:00 2023-02-24 16:00:17 [facility] Multiparit y Multiparit y Disease Resolve d 2021-0 8-10 00:00: 00 2023-02-24 00:00:00 2023-02-24 16:00:10 [facility] History of premature rupture of membranes (PPROM) History of premature rupture of membranes (PPROM) Disease Resolve d 2021-0 8-10 00:00: 00 2023-02-24 00:00:00 2023-02-24 16:00:14 [facility] History of gestationa l hypertensi on History of gestationa l hypertensi on Disease Resolve d 2020-0 8-11 00:00: 00 2023-02-24 00:00:00 2023-02-24 16:00:16 [facility] 37 weeks gestation of 37 weeks gestation of Disease Resolve d 2020-0 8-09 00:00: 00 2023-02-24 00:00:00 2023-02-24 16:00:24 [facility] Obstetrica l laceration Obstetrica l laceration Disease Resolve d 2020-0 8-11 00:00: 00 2021-08-20 00:00:00 2021-08-20 13:14:19 [facility] premature rupture of membranes in third trimester premature rupture of membranes in third trimester Disease Resolve d 2020-0 8-09 00:00: 00 2021-08-20 00:00:00 2021-08-20 13:14:21 [facility] (spontaneo us vaginal delivery) (spontaneo us vaginal delivery) Disease Resolve d 0 8-11 00:00: 00 2021-07-15 00:00:00 2021-07-15 10:51:40 [facility] Single live Single live Disease Resolve d 0 8-11 00:00: 00 2021-07-15 00:00:00 2021-07-15 10:51:42 [facility] Single live Single live Disease Resolve d 0 8-11 00:00: 00 2021-07-15 00:00:00 2021-07-15 10:51:42 [facility] Spotting in Spotting in Disease Resolve d 0 8-09 00:00: 00 2021-07-15 00:00:00 2021-07-15 10:51:27 [facility] Urine frequency Urine frequency Disease Resolve d 0 8-09 00:00: 00 2021-07-15 00:00:00 2021-07-15 10:51:35 [facility] Positive nitrazine test Positive nitrazine test Disease Resolve d 0 8-09 00:00: 00 2021-07-15 00:00:00 2021-07-15 10:51:36 [facility] Primigravi da in third trimester Primigravi da in third trimester Disease Resolve d 3 00:00: 00 2021-07-15 00:00:00 2021-07-15 10:51:30 [facility] Allergies, Adverse Reactions, Alerts Allergy Name Allergy Type Status Severity Reaction(s) Onset Date Inactive Date Treating Clinician Comments Source HYDROXYP ROGEST(P F)(PREG PRESV) DRUG Active Swelling 02-02 00:00: 00 [facility] Hydroxyp rogest(P f)(Preg Presv) Drug Allergy Active Unknown - See comments 02-02 00:00: 00 Fever and pain at injection site [facility] NO KNOWN ALLERGIE S Drug Class Active [facility] Family History Family Member Diagnosis Comments Start Date Stop Date Sourc e Natural brother Asthma [facility] Social History Social Habit Start Date Stop Date Quantity Comments Source ASSERTION 2024-07-24 00:00:00 Not [facility] SDOH Alcohol Comment [place] [facility] Alcoholic beverage intake 2025-05-25 00:00:00 2025-05-25 00:00:00 Lifetime non-drinker (finding) [facility] History of Social function 2025-01-26 00:00:00 2025-01-26 00:00:00 [facility] Exposure to SARS-CoV-2 (event) 2023-03-13 00:00:00 2023-03-23 14:45:00 Not sure [facility] Alcohol intake 2022-10-07 00:00:00 2022-10-07 00:00:00 Lifetime non-drinker (finding) [facility] Tobacco use and exposure 2022-06-24 00:00:00 2022-06-24 00:00:00 Smokeless tobacco non-user [facility] History SDOH Alcohol Frequency 2020-12-05 00:00:00 2020-12-05 00:00:00 1 [facility] History SDOH Alcohol Std Drinks 2020-12-05 00:00:00 2020-12-05 00:00:00 99 [facility] History SDOH Alcohol Binge 2020-12-05 00:00:00 2020-12-05 00:00:00 1 [facility] Sex assigned at 2000 00:00:00 2000 00:00:00 [facility] Smoking Status Start Date Stop Date Source Never smoked tobacco [facility] Medications Ordered Medication Name Filled Medication Name Start Date Stop Date Current Medication? Ordering Clinician Indication Dosage Frequency Signature (SIG) Comments Components Source norelgestro min-ethinyl estradiol 150-35 mcg/24 hr patch 7-11 00:00: 00 Yes [id number] 1{patch } Apply 1 Patch to skin weekly. Apply 1 patch to skin weekly x 3 wks. Skip 1 wk and then start over again [facility] [id number] fum-folic () tablet 1 tablet [id number] fum-folic () tablet 1 tablet 04-05 14:00: 00 Yes 1{tbl} 1 tablet, Oral, DAILY, First dose on Brenda 04/05/25 at 0900, Until Discontinu ed, Routine [facility] witch Bakari (TUCKS) 50 % topical pad witch Bakari (TUCKS) 50 % topical pad 04-04 15:36: 37 Yes Topical, PRN, Starting on Wed04/04/25 at 1036, Until Discontinu ed, Routine, Pain (scale 1-3), Pain (scale 4-6) [facility] ibuprofen (MOTRIN) tablet 800 mg ibuprofen (MOTRIN) tablet 800 mg 04-04 15:35: 59 Yes 800mg 800 mg, Oral, Q8HPRN, Starting on Wed04/04/25 at 1035, Until Discontinu ed, Routine, Alternate with Tylenol for pain scale 4-6 if ordered [facility] acetaminoph en (TYLENOL) tablet 1,000 mg acetaminoph en (TYLENOL) tablet 1,000 mg 04-04 15:35: 58 Yes 1000mg 1,000 mg, Oral, Q8HPRN, Starting on Wed04/04/25 at 1035, Until Discontinu ed, Routine, Alternate with ibuprofen for pain scale 4-6 if ordered [facility] diphenhydrA MINE (BENADRYL) tablet 25 mg 04-04 15:35: 29 Yes 25mg 25 mg, Oral, Q6HPRN, Starting on Wed04/04/25 at 1035, Until Discontinu ed, Routine, Sleep, Itching [facility] ondansetron (ZOFRAN (PF)) injection 4 mg 04-04 15:35: 29 Yes 4mg 4 mg, Slow IV Push, Q8HPRN, Starting on Wed04/04/25 at 1035, Until Discontinu ed, Administer over 2-5 Minutes, 2 mL [facility] simethicone (GAS RELIEF (SIMETHICON E)) chewable tablet 160 mg simethicone (GAS RELIEF (SIMETHICON E)) chewable tablet 160 mg 04-04 15:35: 29 Yes 160mg 160 mg, Oral, PC+HSPRN, Starting on Wed04/04/25 at 1035, Until Discontinu ed, Routine, Gas [facility] docusate (COLACE) capsule 200 mg docusate (COLACE) capsule 200 mg 04-04 15:35: 29 Yes 200mg 200 mg, Oral, QDAILYPRN, Starting on Wed04/04/25 at 1035, Until Discontinu ed, Routine, Constipati on [facility] magnesium hydroxide (MILK OF MAGNESIA) 400 mg/5 mL suspension 30 mL 04-04 15:35: 29 Yes 30mL 30 mL, Oral, QDAILYPRN, Starting on Wed04/04/25 at 1035, Until Discontinu ed, Routine, Constipati on [facility] Oxytocin in Normal Saline 30 unit/500 mL IV infusion Soln 04-04 15:35: 29 Yes 300mL/h 300 mL/hr, IV Infusion, SEE-INSTRU CTIONS, Starting on Wed04/04/25 at 1035, Start at 300 mL/hr for 1 hr then 150 mL/hr for 1 hr. For post delivery uterotonic . [facility] benzocaine- menthol (DERMOPLAST ) 20-0.5 % topical spray benzocaine- menthol (DERMOPLAST ) 20-0.5 % topical spray 04-04 15:35: 29 Yes Topical, PRN, Starting on Wed04/04/25 at 1035, Until Discontinu ed, Routine, Perineum discomfort [facility] Oxytocin in Normal Saline 30 unit/500 mL IV infusion Soln 04-04 14:30: 00 04-04 15:35 :01 No 0mU/min 0-42 juarez-unit s/min (0-42 mL/hr), IV Infusion, CONTINUOUS , Starting on Wed04/04/25 at 0930, Infuse IV through a controlled infusion pump at a proximal port on the peripheral IV line. Oxytocin shall be maintained at a rate that achieves adequate contractio ns. Adequate contractio ns means 3-5 contractio ns in 10 minutes averaged over a 30-minute window -or- at least 200 MVU every 10 minutes for 2 hours if an IUPC is in place. [facility] lidocaine-e pinephrine (XYLOCAINE W/EPINEPHRI NE) 1.5 %-1:200,000 injection 04-04 14:05: 00 04-04 19:16 :37 No Epidural, ONCE INTRA PROCEDURE, Starting on Wed04/04/25 at 0905, Until Wed04/04/25 at 1416, Routine, Intra-op [facility] fentaNYL-ro pivacaine 2 mcg/mL-0.1 % (PF) in NS 200 mL epidural infusion RTU 04-04 14:05: 00 04-04 19:16 :37 No Intra-op [facility] lactated ringers IV infusion 700 mL 04-04 13:00: 00 04-04 13:01 :00 No 700mL at 999 mL/hr, 700 mL, Intravenou s, ONCE, 1 dose, On Wed04/04/25 at 0800, Routine [facility] D5W-LR IV infusion 1,000 mL 04-04 12:43: 38 Yes 1000mL at 1-75 mL/hr, IV Infusion, TITRATE, Starting on Wed04/04/25 at 0743, Until Discontinu ed, Routine [facility] vitamin w/FA tablet 04-04 00:00: 00 05-25 00:00 :00 No [id number] 102 1{tbl} Take 1 tablet by mouth in the morning. [facility] docusate 100 mg capsule 04-04 00:00: 00 05-25 00:00 :00 No [id number] 102 200mg Take 2 capsules by mouth once daily as needed for Constipati on. [facility] ferrous sulfate 325 mg (65 mg iron) tablet 04-04 00:00: 00 05-25 00:00 :00 No [id number] 102 325mg Take 1 tablet by mouth in the morning. [facility] ibuprofen 800 mg tablet 04-04 00:00: 00 05-25 00:00 :00 No [id number] 102 800mg Take 1 tablet by mouth every 8 hours as needed (pain). Take with food or milk. [facility] acetaminoph en 500 mg tablet 04-04 00:00: 00 05-25 00:00 :00 No [id number] 102 1000mg Take 2 tablets by mouth every 8 hours as needed for Pain. [facility] amoxicillin -pot clavulanate 875-125 mg per tablet 03-26 00:00: 00 04-03 04:59 :00 No [id number] 1{tbl} Take 1 tablet by mouth in the morning and 1 tablet in the evening. Do all this for 7 days. [facility] betamethaso ne acet,sod phos (CELESTONE SOLUSPAN) 6 mg/mL injection 12 mg betamethaso ne acet,sod phos (CELESTONE SOLUSPAN) 6 mg/mL injection 12 mg 03-24 18:45: 00 03-24 19:15 :00 No 12mg 12 mg, Intramuscu lar, ONCE, 1 dose, On Wed03/24/25 at 1400, COSMO [facility] metroNIDAZO LE 500 mg tablet 5 00:00: 00 04-04 00:00 :00 No [id number] 500mg Take 1 tablet by mouth in the morning and 1 tablet in the evening. [facility] betamethaso ne acet,sod phos (CELESTONE SOLUSPAN) 6 mg/mL injection 12 mg betamethaso ne acet,sod phos (CELESTONE SOLUSPAN) 6 mg/mL injection 12 mg 03-23 23:45: 00 03-25 23:44 :00 No 12mg 12 mg, Intramuscu lar, Q24H, 2 doses, First dose on Wed03/23/25 at 1845, Last dose on Wed03/24/25 at 1845, Routine [facility] metroNIDAZO LE 500 mg tablet 03-07 00:00: 00 03-15 04:59 :00 No [id number] 9109 500mg Take 1 tablet by mouth every 12 (twelve) hours for 7 days. [facility] albuterol 90 mcg/actuati on inhaler 12-15 00:00: 00 05-25 00:00 :00 No [id number] 2{puff} Inhale 2 Puffs every 4 (four) hours as needed for Wheezing or Shortness of Breath. [facility] budesonide- formoteroL (SYMBICORT) 80-4.5 mcg/actuati on inhaler 12-15 00:00: 00 05-25 00:00 :00 No [id number] 103 2{puff} Inhale 2 Puffs in the morning and 2 Puffs in the evening. [facility] sulfamethox azole-trime thoprim (BACTRIM DS) 800-160 mg per tablet 12-05 00:00: 00 12-13 05:59 :00 No [id number] 1{tbl} Take 1 tablet by mouth in the morning and 1 tablet in the evening. Do all this for 7 days. [facility] metoclopram maria eugenia HCl (REGLAN) tablet 10 mg 12-02:24: 00 12-02 21:47 :00 No 10mg 10 mg, Oral, ONCE, 1 dose, On 12/02/24 at 1530, Routine [facility] fluconazole (DIFLUCAN) tablet 200 mg 12-02 00:45: 00 12-02 00:16 :00 No 200mg 200 mg, Oral, ONCE, 1 dose, On 12/01/24 at 1845, COSMO, Reason for Anti-Infec tive: Documented Infection, Documented Infection Site: Pelvic, Duration of Therapy: Once (ED) [facility] Nitrofurant oin&Nit. Macrocryst (MACROBID) 100 mg capsule 2023-11 00:00: 00 11-02 05:59 :00 No [id number] 100mg Take 1 capsule by mouth in the morning and 1 capsule in the evening. Do all this for 7 days. [facility] TAKE 1 TABLET EVERY 4 TO 6 HOURS NEEDED. 08-05 00:00: 00 Yes 500 Alex Cole TAKE 1 TABLET EVERY 8 HOURS NEEDED FOR NAUSEA AND VOMITING. 08-05 00:00: 00 Yes 8 Alex Cole INHALE 1-2 PUFFS EVERY 4-6 HOURS NEEDED AND DIRECTED. 08-05 00:00: 00 Yes [id number] Alex Cole VENTOLIN HFA AER 08-05 00:00: 00 Yes Alex Cole LESSINA 0 6-08 00:00: 00 Yes Alex Cole LESSINA 5-09 00:00: 00 Yes Alex Cole levonorgest rel-ethinyl estradiol (SRONYX) 0.1-20 mg-mcg per tablet 5-09 00:00: 00 10-09 00:00 :00 No [id number] 1{tbl} Take 1 tablet by mouth in the morning. [facility] budesonide- formoteroL (SYMBICORT) 80-4.5 mcg/actuati on inhaler 2 Puff - 01:00: 00 Yes 2{puff} 2 Puff, Inhalation , BID, First dose on Wed02/02/23 at 2000, Until Discontinu ed, Routine [facility] rho(D) immune globulin (RHOGAM) syringe 300 mcg 02-03 00:07: 42 Yes 300ug 300 mcg, Intramuscu lar, ONCE, For 1 dose, Conditiona l, Routine [facility] witch Bakari (TUCKS) 50 % topical pad 02-03 00:07: 36 Yes Topical, Q4HPRN, Starting on Wed02/02/23 at 1907, Until Discontinu ed, Routine, rectal/hem orrhoidal pain [facility] HYDROcodone -acetaminop hen (NORCO 5) 5-325 mg tablet 1 tablet 02-03 00:07: 36 Yes 1{tbl} 1 tablet, Oral, Q6HPRN, Starting on Wed02/02/23 at 1907, Until Discontinu ed, Routine, Pain (scale 7-10) [facility] ibuprofen (IBU) tablet 600 mg 02-03 00:07: 36 Yes 600mg 600 mg, Oral, Q6HPRN, Starting on Wed02/02/23 at 1907, Until Discontinu ed, Routine, Pain (scale 4-6) [facility] acetaminoph en (TYLENOL) tablet 650 mg 02-03 00:07: 36 Yes 650mg 650 mg, Oral, Q6HPRN, Starting on Wed02/02/23 at 1907, Until Discontinu ed, Routine, Pain (scale 1-3) [facility] diphenhydrA MINE (BENADRYL) tablet 25 mg 02-03 00:07: 36 Yes 25mg 25 mg, Oral, Q6HPRN, Starting on Wed02/02/23 at 1907, Until Discontinu ed, Routine, Sleep, Itching [facility] ondansetron (ZOFRAN (PF)) injection 4 mg 02-03 00:07: 36 Yes 4mg 4 mg, Slow IV Push, Q8HPRN, Starting on Wed02/02/23 at 1907, Until Discontinu ed, Routine, Nausea and Vomiting (N/V) [facility] simethicone (GAS RELIEF (SIMETHICON E)) chewable tablet 160 mg 02-03 00:07: 36 Yes 160mg 160 mg, Oral, PC+HSPRN, Starting on Wed02/02/23 at 1907, Until Discontinu ed, Routine, Gas [facility] docusate (COLACE) capsule 200 mg 02-03 00:07: 36 Yes 200mg 200 mg, Oral, QDAILYPRN, Starting on Wed02/02/23 at 1907, Until Discontinu ed, Routine, Constipati on [facility] magnesium hydroxide (MILK OF MAGNESIA) 400 mg/5 mL suspension 30 mL 02-03 00:07: 36 Yes 30mL 30 mL, Oral, QDAILYPRN, Starting on Wed02/02/23 at 1907, Until Discontinu ed, Routine, Constipati on [facility] benzocaine- menthol (DERMOPLAST ) 20-0.5 % topical spray 02-03 00:07: 36 Yes Topical, PRN, Starting on Wed02/02/23 at 190, Until Discontinu ed, Routine, Perineum discomfort [facility] albuterol (VENTOLIN) inhaler 2 Puff 02-03 00:07: 36 Yes 2{puff} 2 Puff, Inhalation , Q4HPRN, Starting on Wed02/02/23 at 1907, Until Discontinu ed, Routine, Wheezing, Shortness of Breath [facility] vitamin w/FA tablet 02-03 00:00: 00 Yes [id number] 1{tbl} Take 1 tablet by mouth in the morning. [facility] IBUPROFEN 02-03 00:00: 00 Yes Bev Cole vitamin w/FA tablet 02-03 00:00: 00 04-04 00:00 :00 No [id number] 1{tbl} Take 1 tablet by mouth in the morning. [facility] docusate 100 mg capsule 02-03 00:00: 00 10-09 00:00 :00 No [id number] 200mg Take 2 capsules by mouth once daily as needed for Constipati on. [facility] ferrous sulfate 325 mg (65 mg iron) tablet 02-03 00:00: 00 10-09 00:00 :00 No [id number] 325mg Take 1 tablet by mouth in the morning and 1 tablet in the evening. [facility] ibuprofen 600 mg tablet 02-03 00:00: 00 10-09 00:00 :00 No [id number] 600mg Take 1 tablet by mouth every 6 (six) hours as needed (Pain). Take with food or milk. [facility] oxytocin (PITOCIN) 30 units in NS 500 mL IV infusion 02-02 23:29: 54 02-03 00:07 :40 No 300mL/h 300 mL/hr, IV Infusion, SEE-INSTRU CTIONS, Starting on Wed02/02/[address] art at 300 mL/hr for 1 hr then 150 mL/hr for 1 hr. & nbsp; For post delivery uterotonic
[facility] fentaNYL-ro pivacaine 2 mcg/mL-0.1 % (PF) in NS 200 mL epidural infusion RTU 02-02 18:24: 00 02-03 01:12 :53 No Epidural, CONTINUOUS PRN, Starting on Wed02/02/23 at 1324, Until Wed02/02/23 at 2011, Routine, Intra-op [facility] lidocaine-e pinephrine (XYLOCAINE W/EPINEPHRI NE) 1.5 %-1:200,000 injection 02-02 18:19: 00 02-03 01:12 :53 No Intraderma l, ONCE INTRA PROCEDURE, Starting on Wed02/02/23 at 1319, Until Wed02/02/23 at 2011, Routine, Intra-op [facility] oxytocin (PITOCIN) 30 units in NS 500 mL IV infusion 02-02 14:19: 02 02-03 00:07 :40 No 2mU/min at 2-40 mL/hr, IV Infusion, TITRATE, Starting on Wed02/02/23 at 0919, Until Wed02/02/23 at 1907, COSMO [facility] lactated ringers IV infusion 500 mL 02-02 14:15: 00 02-02 17:41 :00 No 500mL at 999 mL/hr, 500 mL, IV Infusion, ONCE, 1 dose, On Wed02/02/23 at 0915, Routine [facility] cetirizine (ZYRTEC) tablet 10 mg 02-02 14:00: 00 Yes 10mg 10 mg, Oral, DAILY, First dose on Wed02/02/23 at 0900, Until Discontinu ed, Routine [facility] acetaminoph en (TYLENOL) tablet 650 mg 02-02 14:00: 00 02-02 14:14 :00 No 650mg 650 mg, Oral, ONCE, 1 dose, On Wed02/02/23 at 0900, Routine [facility] terbutaline (BRETHINE) injection 0.25 mg 02-02 13:20: 14 02-03 00:07 :40 No .25mg 0.25 mg, Subcutaneo us, PRN, Starting on Wed02/02/23 at 0820, Until Wed02/02/23 at 190, Routine, bradycardi a > 3 min or Cat III strip [facility] FENTanyl PF (SUBLIMAZE (PF)) injection 100 mcg 02-02 13:19: 44 02-03 00:07 :40 No 100ug 100 mcg, Slow IV Push, Q1HPRN, Starting on Wed02/02/23 at 0819, Until Wed02/02/23 at 190, Routine, contractio n pain without an epidural and SVE < 8 cm and Cat I strip [facility] lactated ringers IV infusion 500 mL 02-02 13:16: 58 02-03 00:07 :40 No 500mL at 999 mL/hr, 500 mL, IV Infusion, PRN - SEE INSTRUCTIO NS, Starting on Wed02/02/23 at 0816, Until Wed02/02/23 at 1907, Routine [facility] D5W-LR IV infusion 1,000 mL 02-02 13:16: 58 02-03 00:07 :40 No 1000mL at 1-125 mL/hr, IV Infusion, TITRATE, Starting on Wed02/02/23 at 0816, Until Wed02/02/23 at 1907, Routine [facility] lactated ringers IV infusion 500 mL 02-02 13:16: 57 02-02 18:43 :00 No 500mL at 999 mL/hr, 500 mL, IV Infusion, PRN - SEE INSTRUCTIO NS, 1 dose, Starting on Wed02/02/23 at 0816, Until Discontinu ed, Routine [facility] butalbital- acetaminoph en-caff (ESGIC) 50-325-40 mg tablet 2 tablet 02-02 08:00: 00 02-02 07:48 :00 No 2{tbl} 2 tablet, Oral, ONCE, 1 dose, On Wed02/02/23 at 0300, Routine [facility] proMETHazin e 12.5 mg tablet 01-14 00:00: 00 02-03 00:00 :00 No [id number] 12.5mg Take 1 tablet by mouth every 6 (six) hours as needed for Nausea and Vomiting (N/V) (Pt is ) for up to 30 doses. [facility] aspirin 81 mg EC tablet 01-14 00:00: 00 02-03 00:00 :00 No [id number] 81mg Take 1 tablet by mouth in the morning for 30 days. [facility] BUDES/FORMO T AER 80-4.5 12-01 00:00: 00 Yes Alex Cole budesonide- formoteroL (SYMBICORT) 80-4.5 mcg/actuati on inhaler 12-01 00:00: 12-15 00:00 :00 No [id number] 103 2{puff} Inhale 2 Puffs in the morning and 2 Puffs in the evening. [facility] aspirin 81 mg EC tablet 12-01 00:00: 00 02-03 00:00 :00 No [id number] 81mg Take 1 tablet by mouth in the morning. [facility] vit 33-iron-fol ic-dha (SELECT-OB + DHA) 29 mg iron-1 mg -250 mg combo pack 12-01 00:00: 00 02-03 00:00 :00 No [id number] 1{packe t} Take 1 Packet by mouth in the morning. [facility] aspirin 81 mg EC tablet 2021-11 00:00: 00 12-01 00:00 :00 No [id number] 81mg Take 1 tablet by mouth in the morning. [facility] hydroxyprog esterone(PF ) (UMAIR AUTO-INJECT OR) 275 mg/1.1 mL injection 275 mg 2021-11 17:50: 34 01-27 16:59 :00 No [id number] 9100 275mg [facility] UMAIR INJ 2021-11 00:00: 00 Yes 275 Alex Cole hydroxyprog esterone,PF , 275 mg/1.1 mL injection 2021-11 00:00: 00 02-03 00:00 :00 No [id number] 9100 275mg inject 1.1 mL under the skin weekly. [facility] hydroxyprog esterone,PF , (UMAIR, PF,) 275 mg/1.1 mL injection 2021-11 00:00: 00 Yes [id number] 9100 275mg inject 1.1 mL under the skin weekly. [facility] SYMBICORT AER 80-4.5 2021-11 00:00: 00 Yes Alex Josefina Cole budesonide- formoteroL (SYMBICORT) 80-4.5 mcg/actuati on inhaler 2021-11 00:00: 00 12-01 00:00 :00 No [id number] 103 2{puff} Inhale 2 Puffs in the morning and 2 Puffs in the evening. [facility] PROAIR HFA AER 2021-11 00:00: 00 Yes 108 Alex Cole albuterol 90 mcg/actuati on inhaler 2021-11 00:00: 00 12-15 00:00 :00 No [id number] 2{puff} Inhale 2 Puffs every 4 (four) hours as needed for Wheezing or Shortness of Breath. [facility] proMETHazin e 25 mg tablet 07-22 00:00: 00 02-03 00:00 :00 No [id number] 25mg Take 1 tablet by mouth every 4 (four) hours as needed for Nausea and Vomiting (N/V). [facility] vit 33-iron-fol ic-dha (SELECT-OB + DHA) 29 mg iron-1 mg -250 mg combo pack 07-22 00:00: 00 12-01 00:00 :00 No [id number] 1{packe t} Take 1 Packet by mouth in the morning. [facility] No known medications 07-06 14:01: 19 No No known medication s [facility] No known medications 06-24 10:55: 33 No No known medication s [facility] &lt 04-20 00:00: 00 Yes Alex Cole &lt 04-20 00:00: 00 Yes Alex Cole Dose Unknown 29 00:00: 00 Yes Alex Cole Dose Unknown 28 00:00: 00 Yes Alex Cole prednisone 20 mg tablet 03-28 00:00: 00 Yes 1mg Alex Cole azithromyci n 250 mg tablet 03-28 00:00: 00 Yes mg Alex Cole Bromfed DM 2 mg-30 mg-10 mg/5 mL oral syrup 03-28 00:00: 00 Yes 5mg/5 mL Alex Cole cetirizine 10 mg tablet 24 00:00: 00 Yes 1mg Alex Cole Immunizations Ordered Immunization Name Filled Immunization Name Date Status Comments Source TDAP 2025-02-09 00:00:00 Completed [facility] TDAP 2022-12-01 00:00:00 Completed [facility] TDAP 2022-12-01 00:00:00 Completed [facility] TDAP 2022-12-01 00:00:00 Completed [facility] TDAP 2022-12-01 00:00:00 Completed [facility] TDAP 2022-12-01 00:00:00 Completed [facility] TDAP 2022-12-01 00:00:00 Completed [facility] TDAP 2022-12-01 00:00:00 Completed [facility] TDAP 2022-12-01 00:00:00 Completed [facility] TDAP 2022-12-01 00:00:00 Completed [facility] TDAP 2022-12-01 00:00:00 Completed [facility] TDAP 2022-12-01 00:00:00 Completed [facility] TDAP 2022-12-01 00:00:00 Completed [facility] TDAP 2022-12-01 00:00:00 Completed [facility] TDAP 2022-12-01 00:00:00 Completed [facility] TDAP 2022-12-01 00:00:00 Completed [facility] TDAP 2022-12-01 00:00:00 Completed [facility] SARS-COV-2 COVID-19 PFIZER VACCINE 2021-11-14 00:00:00 Completed [facility] SARS-COV-2 COVID-19 PFIZER VACCINE 2021-11-14 00:00:00 Completed [facility] SARS-COV-2 COVID-19 PFIZER VACCINE 2021-11-14 00:00:00 Completed [facility] SARS-COV-2 COVID-19 PFIZER VACCINE 2021-11-14 00:00:00 Completed [facility] SARS-COV-2 COVID-19 PFIZER VACCINE 2021-11-14 00:00:00 Completed [facility] SARS-COV-2 COVID-19 PFIZER VACCINE 2021-11-14 00:00:00 Completed [facility] SARS-COV-2 COVID-19 PFIZER VACCINE 2021-11-14 00:00:00 Completed [facility] SARS-COV-2 COVID-19 PFIZER VACCINE 2021-11-14 00:00:00 Completed [facility] SARS-COV-2 COVID-19 PFIZER VACCINE 2021-11-14 00:00:00 Completed [facility] SARS-COV-2 COVID-19 PFIZER VACCINE 2021-11-14 00:00:00 Completed [facility] SARS-COV-2 COVID-19 PFIZER VACCINE 2021-11-14 00:00:00 Completed [facility] SARS-COV-2 COVID-19 PFIZER VACCINE 2021-11-14 00:00:00 Completed [facility] SARS-COV-2 COVID-19 PFIZER VACCINE 2021-11-14 00:00:00 Completed [facility] SARS-COV-2 COVID-19 PFIZER VACCINE 2021-11-14 00:00:00 Completed [facility] SARS-COV-2 COVID-19 PFIZER VACCINE 2021-11-14 00:00:00 Completed [facility] SARS-COV-2 COVID-19 PFIZER VACCINE 2021-11-14 00:00:00 Completed [facility] SARS-COV-2 COVID-19 PFIZER VACCINE 2021-11-14 00:00:00 Completed [facility] SARS-COV-2 COVID-19 PFIZER VACCINE 2021-11-14 00:00:00 Completed [facility] SARS-COV-2 COVID-19 PFIZER VACCINE 2021-11-14 00:00:00 Completed [facility] SARS-COV-2 COVID-19 PFIZER VACCINE 2021-11-14 00:00:00 Completed [facility] SARS-COV-2 COVID-19 PFIZER VACCINE 2021-11-14 00:00:00 Completed [facility] SARS-COV-2 COVID-19 PFIZER VACCINE 2021-11-14 00:00:00 Completed [facility] SARS-COV-2 COVID-19 PFIZER VACCINE 2021-11-14 00:00:00 Completed [facility] SARS-COV-2 COVID-19 PFIZER VACCINE 2021-11-14 00:00:00 Completed [facility] SARS-COV-2 COVID-19 PFIZER VACCINE 2021-11-14 00:00:00 Completed [facility] SARS-COV-2 COVID-19 PFIZER VACCINE 2021-11-14 00:00:00 Completed [facility] SARS-COV-2 COVID-19 PFIZER VACCINE 2021-11-14 00:00:00 Completed [facility] SARS-COV-2 COVID-19 PFIZER VACCINE 2021-11-14 00:00:00 Completed [facility] SARS-COV-2 COVID-19 PFIZER VACCINE 2021-11-14 00:00:00 Completed [facility] SARS-COV-2 COVID-19 PFIZER VACCINE 2021-11-14 00:00:00 Completed [facility] SARS-COV-2 COVID-19 PFIZER VACCINE 2021-11-14 00:00:00 Completed [facility] SARS-COV-2 COVID-19 PFIZER VACCINE 2021-11-14 00:00:00 Completed [facility] SARS-COV-2 COVID-19 PFIZER VACCINE 2021-11-14 00:00:00 Completed [facility] SARS-COV-2 COVID-19 PFIZER VACCINE 2021-11-14 00:00:00 Completed [facility] SARS-COV-2 COVID-19 PFIZER VACCINE 2021-11-14 00:00:00 Completed [facility] SARS-COV-2 COVID-19 PFIZER VACCINE 2021-11-14 00:00:00 Completed [facility] SARS-COV-2 COVID-19 PFIZER VACCINE 2021-11-14 00:00:00 Completed [facility] SARS-COV-2 COVID-19 PFIZER VACCINE 2021-11-14 00:00:00 Completed [facility] SARS-COV-2 COVID-19 PFIZER VACCINE 2021-11-14 00:00:00 Completed [facility] SARS-COV-2 COVID-19 PFIZER VACCINE 2021-10-15 00:00:00 Completed [facility] SARS-COV-2 COVID-19 PFIZER VACCINE 2021-10-15 00:00:00 Completed [facility] SARS-COV-2 COVID-19 PFIZER VACCINE 2021-10-15 00:00:00 Completed [facility] SARS-COV-2 COVID-19 PFIZER VACCINE 2021-10-15 00:00:00 Completed [facility] SARS-COV-2 COVID-19 PFIZER VACCINE 2021-10-15 00:00:00 Completed [facility] SARS-COV-2 COVID-19 PFIZER VACCINE 2021-10-15 00:00:00 Completed [facility] SARS-COV-2 COVID-19 PFIZER VACCINE 2021-10-15 00:00:00 Completed [facility] SARS-COV-2 COVID-19 PFIZER VACCINE 2021-10-15 00:00:00 Completed [facility] SARS-COV-2 COVID-19 PFIZER VACCINE 2021-10-15 00:00:00 Completed [facility] SARS-COV-2 COVID-19 PFIZER VACCINE 2021-10-15 00:00:00 Completed [facility] SARS-COV-2 COVID-19 PFIZER VACCINE 2021-10-15 00:00:00 Completed [facility] SARS-COV-2 COVID-19 PFIZER VACCINE 2021-10-15 00:00:00 Completed [facility] SARS-COV-2 COVID-19 PFIZER VACCINE 2021-10-15 00:00:00 Completed [facility] SARS-COV-2 COVID-19 PFIZER VACCINE 2021-10-15 00:00:00 Completed [facility] SARS-COV-2 COVID-19 PFIZER VACCINE 2021-10-15 00:00:00 Completed [facility] SARS-COV-2 COVID-19 PFIZER VACCINE 2021-10-15 00:00:00 Completed [facility] SARS-COV-2 COVID-19 PFIZER VACCINE 2021-10-15 00:00:00 Completed [facility] SARS-COV-2 COVID-19 PFIZER VACCINE 2021-10-15 00:00:00 Completed [facility] SARS-COV-2 COVID-19 PFIZER VACCINE 2021-10-15 00:00:00 Completed [facility] SARS-COV-2 COVID-19 PFIZER VACCINE 2021-10-15 00:00:00 Completed [facility] SARS-COV-2 COVID-19 PFIZER VACCINE 2021-10-15 00:00:00 Completed [facility] SARS-COV-2 COVID-19 PFIZER VACCINE 2021-10-15 00:00:00 Completed [facility] SARS-COV-2 COVID-19 PFIZER VACCINE 2021-10-15 00:00:00 Completed [facility] SARS-COV-2 COVID-19 PFIZER VACCINE 2021-10-15 00:00:00 Completed [facility] SARS-COV-2 COVID-19 PFIZER VACCINE 2021-10-15 00:00:00 Completed [facility] SARS-COV-2 COVID-19 PFIZER VACCINE 2021-10-15 00:00:00 Completed [facility] SARS-COV-2 COVID-19 PFIZER VACCINE 2021-10-15 00:00:00 Completed [facility] SARS-COV-2 COVID-19 PFIZER VACCINE 2021-10-15 00:00:00 Completed [facility] SARS-COV-2 COVID-19 PFIZER VACCINE 2021-10-15 00:00:00 Completed [facility] SARS-COV-2 COVID-19 PFIZER VACCINE 2021-10-15 00:00:00 Completed [facility] SARS-COV-2 COVID-19 PFIZER VACCINE 2021-10-15 00:00:00 Completed [facility] SARS-COV-2 COVID-19 PFIZER VACCINE 2021-10-15 00:00:00 Completed [facility] SARS-COV-2 COVID-19 PFIZER VACCINE 2021-10-15 00:00:00 Completed [facility] SARS-COV-2 COVID-19 PFIZER VACCINE 2021-10-15 00:00:00 Completed [facility] SARS-COV-2 COVID-19 PFIZER VACCINE 2021-10-15 00:00:00 Completed [facility] SARS-COV-2 COVID-19 PFIZER VACCINE 2021-10-15 00:00:00 Completed [facility] SARS-COV-2 COVID-19 PFIZER VACCINE 2021-10-15 00:00:00 Completed [facility] SARS-COV-2 COVID-19 PFIZER VACCINE 2021-10-15 00:00:00 Completed [facility] SARS-COV-2 COVID-19 PFIZER VACCINE 2021-10-15 00:00:00 Completed [facility] TDAP 2021-05-26 00:00:00 Completed [facility] TDAP 2021-05-26 00:00:00 Completed [facility] TDAP 2021-05-26 00:00:00 Completed [facility] TDAP 2021-05-26 00:00:00 Completed [facility] TDAP 2021-05-26 00:00:00 Completed [facility] TDAP 2021-05-26 00:00:00 Completed [facility] TDAP 2021-05-26 00:00:00 Completed [facility] TDAP 2021-05-26 00:00:00 Completed [facility] TDAP 2021-05-26 00:00:00 Completed [facility] TDAP 2021-05-26 00:00:00 Completed [facility] TDAP 2021-05-26 00:00:00 Completed [facility] TDAP 2021-05-26 00:00:00 Completed [facility] TDAP 2021-05-26 00:00:00 Completed [facility] TDAP 2021-05-26 00:00:00 Completed [facility] TDAP 2021-05-26 00:00:00 Completed [facility] TDAP 2021-05-26 00:00:00 Completed [facility] TDAP 2021-05-26 00:00:00 Completed [facility] TDAP 2021-05-26 00:00:00 Completed [facility] TDAP 2021-05-26 00:00:00 Completed [facility] TDAP 2021-05-26 00:00:00 Completed [facility] TDAP 2021-05-26 00:00:00 Completed [facility] TDAP 2021-05-26 00:00:00 Completed [facility] TDAP 2021-05-26 00:00:00 Completed [facility] TDAP 2021-05-26 00:00:00 Completed [facility] TDAP 2021-05-26 00:00:00 Completed [facility] TDAP 2021-05-26 00:00:00 Completed [facility] TDAP 2021-05-26 00:00:00 Completed [facility] TDAP 2021-05-26 00:00:00 Completed [facility] TDAP 2021-05-26 00:00:00 Completed [facility] TDAP 2021-05-26 00:00:00 Completed [facility] TDAP 2021-05-26 00:00:00 Completed [facility] TDAP 2021-05-26 00:00:00 Completed [facility] TDAP 2021-05-26 00:00:00 Completed [facility] TDAP 2021-05-26 00:00:00 Completed [facility] TDAP 2021-05-26 00:00:00 Completed [facility] TDAP 2021-05-26 00:00:00 Completed [facility] TDAP 2021-05-26 00:00:00 Completed [facility] TDAP 2021-05-26 00:00:00 Completed [facility] TDAP 2021-05-26 00:00:00 Completed [facility] meningococcal MCV4P meningococcal MCV4P 00:00:00 Completed Alex [facility] Meningococcal Polysaccharide (groups A, C, Y and W-135) conjugate vaccine (MCV4P) 2018-12-02 00:00:00 Completed [facility] Meningococcal Polysaccharide (groups A, C, Y and W-135) conjugate vaccine (MCV4P) 2018-12-02 00:00:00 Completed [facility] Meningococcal Polysaccharide (groups A, C, Y and W-135) conjugate vaccine (MCV4P) 2018-12-02 00:00:00 Completed [facility] Meningococcal Polysaccharide (groups A, C, Y and W-135) conjugate vaccine (MCV4P) 2018-12-02 00:00:00 Completed [facility] Meningococcal Polysaccharide (groups A, C, Y and W-135) conjugate vaccine (MCV4P) 2018-12-02 00:00:00 Completed [facility] Meningococcal Polysaccharide (groups A, C, Y and W-135) conjugate vaccine (MCV4P) 2018-12-02 00:00:00 Completed [facility] Meningococcal Polysaccharide (groups A, C, Y and W-135) conjugate vaccine (MCV4P) 2018-12-02 00:00:00 Completed [facility] Meningococcal Polysaccharide (groups A, C, Y and W-135) conjugate vaccine (MCV4P) 2018-12-02 00:00:00 Completed [facility] Meningococcal Polysaccharide (groups A, C, Y and W-135) conjugate vaccine (MCV4P) 2018-12-02 00:00:00 Completed [facility] Meningococcal Polysaccharide (groups A, C, Y and W-135) conjugate vaccine (MCV4P) 2018-12-02 00:00:00 Completed [facility] Meningococcal Polysaccharide (groups A, C, Y and W-135) conjugate vaccine (MCV4P) 2018-12-02 00:00:00 Completed [facility] Meningococcal Polysaccharide (groups A, C, Y and W-135) conjugate vaccine (MCV4P) 2018-12-02 00:00:00 Completed [facility] Meningococcal Polysaccharide (groups A, C, Y and W-135) conjugate vaccine (MCV4P) 2018-12-02 00:00:00 Completed [facility] Meningococcal Polysaccharide (groups A, C, Y and W-135) conjugate vaccine (MCV4P) 2018-12-02 00:00:00 Completed [facility] Meningococcal Polysaccharide (groups A, C, Y and W-135) conjugate vaccine (MCV4P) 2018-12-02 00:00:00 Completed [facility] Meningococcal Polysaccharide (groups A, C, Y and W-135) conjugate vaccine (MCV4P) 2018-12-02 00:00:00 Completed [facility] Meningococcal Polysaccharide (groups A, C, Y and W-135) conjugate vaccine (MCV4P) 2018-12-02 00:00:00 Completed [facility] Meningococcal Polysaccharide (groups A, C, Y and W-135) conjugate vaccine (MCV4P) 2018-12-02 00:00:00 Completed [facility] Meningococcal Polysaccharide (groups A, C, Y and W-135) conjugate vaccine (MCV4P) 2018-12-02 00:00:00 Completed [facility] Meningococcal Polysaccharide (groups A, C, Y and W-135) conjugate vaccine (MCV4P) 2018-12-02 00:00:00 Completed [facility] Meningococcal Polysaccharide (groups A, C, Y and W-135) conjugate vaccine (MCV4P) 2018-12-02 00:00:00 Completed [facility] Meningococcal Polysaccharide (groups A, C, Y and W-135) conjugate vaccine (MCV4P) 2018-12-02 00:00:00 Completed [facility] Meningococcal Polysaccharide (groups A, C, Y and W-135) conjugate vaccine (MCV4P) 2018-12-02 00:00:00 Completed [facility] Meningococcal Polysaccharide (groups A, C, Y and W-135) conjugate vaccine (MCV4P) 2018-12-02 00:00:00 Completed [facility] Meningococcal Polysaccharide (groups A, C, Y and W-135) conjugate vaccine (MCV4P) 2018-12-02 00:00:00 Completed [facility] Meningococcal Polysaccharide (groups A, C, Y and W-135) conjugate vaccine (MCV4P) 2018-12-02 00:00:00 Completed Influenza, seasonal, inj Influenza, seasonal, inj 2015-10-01 00:00:00 Completed [facility] Flu Trivalent 2015-10-01 00:00:00 Completed [facility] Flu Trivalent 2015-10-01 00:00:00 Completed [facility] Flu Trivalent 2015-10-01 00:00:00 Completed [facility] Flu Trivalent 2015-10-01 00:00:00 Completed [facility] Flu Trivalent 2015-10-01 00:00:00 Completed [facility] Flu Trivalent 2015-10-01 00:00:00 Completed [facility] Flu Trivalent 2015-10-01 00:00:00 Completed [facility] Flu Trivalent 2015-10-01 00:00:00 Completed [facility] Flu Trivalent 2015-10-01 00:00:00 Completed [facility] Flu Trivalent 2015-10-01 00:00:00 Completed [facility] Flu Trivalent 2015-10-01 00:00:00 Completed [facility] Flu Trivalent 2015-10-01 00:00:00 Completed [facility] Flu Trivalent 2015-10-01 00:00:00 Completed [facility] Flu Trivalent 2015-10-01 00:00:00 Completed [facility] Flu Trivalent 2015-10-01 00:00:00 Completed [facility] Flu Trivalent 2015-10-01 00:00:00 Completed [facility] Flu Trivalent 2015-10-01 00:00:00 Completed [facility] Flu Trivalent 2015-10-01 00:00:00 Completed [facility] Flu Trivalent 2015-10-01 00:00:00 Completed [facility] Flu Trivalent 2015-10-01 00:00:00 Completed [facility] Flu Trivalent 2015-10-01 00:00:00 Completed [facility] Flu Trivalent 2015-10-01 00:00:00 Completed [facility] Flu Trivalent 2015-10-01 00:00:00 Completed [facility] Flu Trivalent 2015-10-01 00:00:00 Completed [facility] Flu Trivalent 2015-10-01 00:00:00 Completed [facility] Influenza, split virus, trivalent, PF (AFLURIA/FLUARIX/FLU LAVAL/FLUZONE) 2015-10-01 00:00:00 Completed HPV, quadrivalent HPV, quadrivalent 2013-04-11 00:00:00 Completed [facility] meningococcal MCV4P meningococcal MCV4P 00:00:00 Completed Alex Cole Tdap Tdap 2013-04-11 00:00:00 Completed Alex Cole HPV 2013-04-11 00:00:00 Completed [facility] Meningococcal Polysaccharide (groups A, C, Y and W-135) conjugate vaccine (MCV4P) 2013-04-11 00:00:00 Completed [facility] TDAP 2013-04-11 00:00:00 Completed [facility] HPV 2013-04-11 00:00:00 Completed [facility] Meningococcal Polysaccharide (groups A, C, Y and W-135) conjugate vaccine (MCV4P) 2013-04-11 00:00:00 Completed [facility] TDAP 2013-04-11 00:00:00 Completed [facility] HPV 2013-04-11 00:00:00 Completed [facility] Meningococcal Polysaccharide (groups A, C, Y and W-135) conjugate vaccine (MCV4P) 2013-04-11 00:00:00 Completed [facility] TDAP 2013-04-11 00:00:00 Completed [facility] HPV 2013-04-11 00:00:00 Completed [facility] Meningococcal Polysaccharide (groups A, C, Y and W-135) conjugate vaccine (MCV4P) 2013-04-11 00:00:00 Completed [facility] TDAP 2013-04-11 00:00:00 Completed [facility] HPV 2013-04-11 00:00:00 Completed [facility] Meningococcal Polysaccharide (groups A, C, Y and W-135) conjugate vaccine (MCV4P) 2013-04-11 00:00:00 Completed [facility] TDAP 2013-04-11 00:00:00 Completed [facility] HPV 2013-04-11 00:00:00 Completed [facility] Meningococcal Polysaccharide (groups A, C, Y and W-135) conjugate vaccine (MCV4P) 2013-04-11 00:00:00 Completed [facility] TDAP 2013-04-11 00:00:00 Completed [facility] HPV 2013-04-11 00:00:00 Completed [facility] Meningococcal Polysaccharide (groups A, C, Y and W-135) conjugate vaccine (MCV4P) 2013-04-11 00:00:00 Completed [facility] TDAP 2013-04-11 00:00:00 Completed [facility] HPV 2013-04-11 00:00:00 Completed [facility] Meningococcal Polysaccharide (groups A, C, Y and W-135) conjugate vaccine (MCV4P) 2013-04-11 00:00:00 Completed [facility] TDAP 2013-04-11 00:00:00 Completed [facility] HPV 2013-04-11 00:00:00 Completed [facility] Meningococcal Polysaccharide (groups A, C, Y and W-135) conjugate vaccine (MCV4P) 2013-04-11 00:00:00 Completed [facility] TDAP 2013-04-11 00:00:00 Completed [facility] HPV 2013-04-11 00:00:00 Completed [facility] Meningococcal Polysaccharide (groups A, C, Y and W-135) conjugate vaccine (MCV4P) 2013-04-11 00:00:00 Completed [facility] TDAP 2013-04-11 00:00:00 Completed [facility] HPV 2013-04-11 00:00:00 Completed [facility] Meningococcal Polysaccharide (groups A, C, Y and W-135) conjugate vaccine (MCV4P) 2013-04-11 00:00:00 Completed [facility] TDAP 2013-04-11 00:00:00 Completed [facility] HPV 2013-04-11 00:00:00 Completed [facility] Meningococcal Polysaccharide (groups A, C, Y and W-135) conjugate vaccine (MCV4P) 2013-04-11 00:00:00 Completed [facility] TDAP 2013-04-11 00:00:00 Completed [facility] HPV 2013-04-11 00:00:00 Completed [facility] Meningococcal Polysaccharide (groups A, C, Y and W-135) conjugate vaccine (MCV4P) 2013-04-11 00:00:00 Completed [facility] TDAP 2013-04-11 00:00:00 Completed [facility] HPV 2013-04-11 00:00:00 Completed [facility] Meningococcal Polysaccharide (groups A, C, Y and W-135) conjugate vaccine (MCV4P) 2013-04-11 00:00:00 Completed [facility] TDAP 2013-04-11 00:00:00 Completed [facility] HPV 2013-04-11 00:00:00 Completed [facility] Meningococcal Polysaccharide (groups A, C, Y and W-135) conjugate vaccine (MCV4P) 2013-04-11 00:00:00 Completed [facility] TDAP 2013-04-11 00:00:00 Completed [facility] HPV 2013-04-11 00:00:00 Completed [facility] Meningococcal Polysaccharide (groups A, C, Y and W-135) conjugate vaccine (MCV4P) 2013-04-11 00:00:00 Completed [facility] TDAP 2013-04-11 00:00:00 Completed [facility] HPV 2013-04-11 00:00:00 Completed [facility] Meningococcal Polysaccharide (groups A, C, Y and W-135) conjugate vaccine (MCV4P) 2013-04-11 00:00:00 Completed [facility] TDAP 2013-04-11 00:00:00 Completed [facility] HPV 2013-04-11 00:00:00 Completed [facility] Meningococcal Polysaccharide (groups A, C, Y and W-135) conjugate vaccine (MCV4P) 2013-04-11 00:00:00 Completed [facility] TDAP 2013-04-11 00:00:00 Completed [facility] HPV 2013-04-11 00:00:00 Completed [facility] Meningococcal Polysaccharide (groups A, C, Y and W-135) conjugate vaccine (MCV4P) 2013-04-11 00:00:00 Completed [facility] TDAP 2013-04-11 00:00:00 Completed [facility] HPV 2013-04-11 00:00:00 Completed [facility] Meningococcal Polysaccharide (groups A, C, Y and W-135) conjugate vaccine (MCV4P) 2013-04-11 00:00:00 Completed [facility] TDAP 2013-04-11 00:00:00 Completed [facility] HPV 2013-04-11 00:00:00 Completed [facility] Meningococcal Polysaccharide (groups A, C, Y and W-135) conjugate vaccine (MCV4P) 2013-04-11 00:00:00 Completed [facility] TDAP 2013-04-11 00:00:00 Completed [facility] HPV 2013-04-11 00:00:00 Completed [facility] Meningococcal Polysaccharide (groups A, C, Y and W-135) conjugate vaccine (MCV4P) 2013-04-11 00:00:00 Completed [facility] TDAP 2013-04-11 00:00:00 Completed [facility] HPV 2013-04-11 00:00:00 Completed [facility] Meningococcal Polysaccharide (groups A, C, Y and W-135) conjugate vaccine (MCV4P) 2013-04-11 00:00:00 Completed [facility] TDAP 2013-04-11 00:00:00 Completed [facility] HPV 2013-04-11 00:00:00 Completed [facility] Meningococcal Polysaccharide (groups A, C, Y and W-135) conjugate vaccine (MCV4P) 2013-04-11 00:00:00 Completed [facility] TDAP 2013-04-11 00:00:00 Completed [facility] HPV 2013-04-11 00:00:00 Completed [facility] Meningococcal Polysaccharide (groups A, C, Y and W-135) conjugate vaccine (MCV4P) 2013-04-11 00:00:00 Completed [facility] TDAP 2013-04-11 00:00:00 Completed [facility] HPV 2013-04-11 00:00:00 Completed Meningococcal Polysaccharide (groups A, C, Y and W-135) conjugate vaccine (MCV4P) 2013-04-11 00:00:00 Completed TDAP 2013-04-11 00:00:00 Completed MMR MMR 2011-05-20 00:00:00 Completed [facility] varicella varicella 2011-05-20 00:00:00 Completed [facility] MMR 2011-05-20 00:00:00 Completed [facility] Varicella (varivax)(chicken pox) 2011-05-20 00:00:00 Completed [facility] MMR 2011-05-20 00:00:00 Completed [facility] Varicella (varivax)(chicken pox) 2011-05-20 00:00:00 Completed [facility] MMR 2011-05-20 00:00:00 Completed [facility] Varicella (varivax)(chicken pox) 2011-05-20 00:00:00 Completed [facility] MMR 2011-05-20 00:00:00 Completed [facility] Varicella (varivax)(chicken pox) 2011-05-20 00:00:00 Completed [facility] MMR 2011-05-20 00:00:00 Completed [facility] Varicella (varivax)(chicken pox) 2011-05-20 00:00:00 Completed [facility] MMR 2011-05-20 00:00:00 Completed [facility] Varicella (varivax)(chicken pox) 2011-05-20 00:00:00 Completed [facility] 2011-05-20 00:00:00 Completed [facility] Varicella (varivax)(chicken pox) 2011-05-20 00:00:00 Completed [facility] 2011-05-20 00:00:00 Completed [facility] Varicella (varivax)(chicken pox) 2011-05-20 00:00:00 Completed [facility] 2011-05-20 00:00:00 Completed [facility] Varicella (varivax)(chicken pox) 2011-05-20 00:00:00 Completed [facility] 2011-05-20 00:00:00 Completed [facility] Varicella (varivax)(chicken pox) 2011-05-20 00:00:00 Completed [facility] 2011-05-20 00:00:00 Completed [facility] Varicella (varivax)(chicken pox) 2011-05-20 00:00:00 Completed [facility] 2011-05-20 00:00:00 Completed [facility] Varicella (varivax)(chicken pox) 2011-05-20 00:00:00 Completed [facility] 2011-05-20 00:00:00 Completed [facility] Varicella (varivax)(chicken pox) 2011-05-20 00:00:00 Completed [facility] 2011-05-20 00:00:00 Completed [facility] Varicella (varivax)(chicken pox) 2011-05-20 00:00:00 Completed [facility] 2011-05-20 00:00:00 Completed [facility] Varicella (varivax)(chicken pox) 2011-05-20 00:00:00 Completed [facility] 2011-05-20 00:00:00 Completed [facility] Varicella (varivax)(chicken pox) 2011-05-20 00:00:00 Completed [facility] 2011-05-20 00:00:00 Completed [facility] Varicella (varivax)(chicken pox) 2011-05-20 00:00:00 Completed [facility] MMR 2011-05-20 00:00:00 Completed [facility] Varicella (varivax)(chicken pox) 2011-05-20 00:00:00 Completed [facility] 2011-05-20 00:00:00 Completed [facility] Varicella (varivax)(chicken pox) 2011-05-20 00:00:00 Completed [facility] 2011-05-20 00:00:00 Completed [facility] Varicella (varivax)(chicken pox) 2011-05-20 00:00:00 Completed [facility] 2011-05-20 00:00:00 Completed [facility] Varicella (varivax)(chicken pox) 2011-05-20 00:00:00 Completed [facility] 2011-05-20 00:00:00 Completed [facility] Varicella (varivax)(chicken pox) 2011-05-20 00:00:00 Completed [facility] 2011-05-20 00:00:00 Completed [facility] Varicella (varivax)(chicken pox) 2011-05-20 00:00:00 Completed [facility] 2011-05-20 00:00:00 Completed [facility] Varicella (varivax)(chicken pox) 2011-05-20 00:00:00 Completed [facility] 2011-05-20 00:00:00 Completed [facility] Varicella (varivax)(chicken pox) 2011-05-20 00:00:00 Completed [facility] 2011-05-20 00:00:00 Completed Varicella (varivax)(chicken pox) 2011-05-20 00:00:00 Completed DTaP DTaP 2006-05-11 00:00:00 Completed [facility] MMR MMR 2006-05-11 00:00:00 Completed [facility] IPV IPV 2006-05-11 00:00:00 Completed [facility] DTaP, Unspecified Formulation 2006-05-11 00:00:00 Completed [facility] MMR 2006-05-11 00:00:00 Completed [facility] IPV 2006-05-11 00:00:00 Completed [facility] DTaP, Unspecified Formulation 2006-05-11 00:00:00 Completed [facility] MMR 2006-05-11 00:00:00 Completed [facility] IPV 2006-05-11 00:00:00 Completed [facility] DTaP, Unspecified Formulation 2006-05-11 00:00:00 Completed [facility] MMR 2006-05-11 00:00:00 Completed [facility] IPV 2006-05-11 00:00:00 Completed [facility] DTaP, Unspecified Formulation 2006-05-11 00:00:00 Completed [facility] MMR 2006-05-11 00:00:00 Completed [facility] IPV 2006-05-11 00:00:00 Completed [facility] DTaP, Unspecified Formulation 2006-05-11 00:00:00 Completed [facility] MMR 2006-05-11 00:00:00 Completed [facility] IPV 2006-05-11 00:00:00 Completed [facility] DTaP, Unspecified Formulation 2006-05-11 00:00:00 Completed [facility] MMR 2006-05-11 00:00:00 Completed [facility] IPV 2006-05-11 00:00:00 Completed [facility] DTaP, Unspecified Formulation 2006-05-11 00:00:00 Completed [facility] MMR 2006-05-11 00:00:00 Completed [facility] IPV 2006-05-11 00:00:00 Completed [facility] DTaP, Unspecified Formulation 2006-05-11 00:00:00 Completed [facility] MMR 2006-05-11 00:00:00 Completed [facility] IPV 2006-05-11 00:00:00 Completed [facility] DTaP, Unspecified Formulation 2006-05-11 00:00:00 Completed [facility] MMR 2006-05-11 00:00:00 Completed [facility] IPV 2006-05-11 00:00:00 Completed [facility] DTaP, Unspecified Formulation 2006-05-11 00:00:00 Completed [facility] MMR 2006-05-11 00:00:00 Completed [facility] IPV 2006-05-11 00:00:00 Completed [facility] DTaP, Unspecified Formulation 2006-05-11 00:00:00 Completed [facility] MMR 2006-05-11 00:00:00 Completed [facility] IPV 2006-05-11 00:00:00 Completed [facility] DTaP, Unspecified Formulation 2006-05-11 00:00:00 Completed [facility] MMR 2006-05-11 00:00:00 Completed [facility] IPV 2006-05-11 00:00:00 Completed [facility] DTaP, Unspecified Formulation 2006-05-11 00:00:00 Completed [facility] MMR 2006-05-11 00:00:00 Completed [facility] IPV 2006-05-11 00:00:00 Completed [facility] DTaP, Unspecified Formulation 2006-05-11 00:00:00 Completed [facility] MMR 2006-05-11 00:00:00 Completed [facility] IPV 2006-05-11 00:00:00 Completed [facility] DTaP, Unspecified Formulation 2006-05-11 00:00:00 Completed [facility] MMR 2006-05-11 00:00:00 Completed [facility] IPV 2006-05-11 00:00:00 Completed [facility] DTaP, Unspecified Formulation 2006-05-11 00:00:00 Completed [facility] MMR 2006-05-11 00:00:00 Completed [facility] IPV 2006-05-11 00:00:00 Completed [facility] DTaP, Unspecified Formulation 2006-05-11 00:00:00 Completed [facility] MMR 2006-05-11 00:00:00 Completed [facility] IPV 2006-05-11 00:00:00 Completed [facility] DTaP, Unspecified Formulation 2006-05-11 00:00:00 Completed [facility] MMR 2006-05-11 00:00:00 Completed [facility] IPV 2006-05-11 00:00:00 Completed [facility] DTaP, Unspecified Formulation 2006-05-11 00:00:00 Completed [facility] MMR 2006-05-11 00:00:00 Completed [facility] IPV 2006-05-11 00:00:00 Completed [facility] DTaP, Unspecified Formulation 2006-05-11 00:00:00 Completed [facility] MMR 2006-05-11 00:00:00 Completed [facility] IPV 2006-05-11 00:00:00 Completed [facility] DTaP, Unspecified Formulation 2006-05-11 00:00:00 Completed [facility] MMR 2006-05-11 00:00:00 Completed [facility] IPV 2006-05-11 00:00:00 Completed [facility] DTaP, Unspecified Formulation 2006-05-11 00:00:00 Completed [facility] MMR 2006-05-11 00:00:00 Completed [facility] IPV 2006-05-11 00:00:00 Completed [facility] DTaP, Unspecified Formulation 2006-05-11 00:00:00 Completed [facility] MMR 2006-05-11 00:00:00 Completed [facility] IPV 2006-05-11 00:00:00 Completed [facility] DTaP, Unspecified Formulation 2006-05-11 00:00:00 Completed [facility] MMR 2006-05-11 00:00:00 Completed [facility] IPV 2006-05-11 00:00:00 Completed [facility] DTaP, Unspecified Formulation 2006-05-11 00:00:00 Completed [facility] MMR 2006-05-11 00:00:00 Completed [facility] IPV 2006-05-11 00:00:00 Completed [facility] DTaP, Unspecified Formulation 2006-05-11 00:00:00 Completed MMR 2006-05-11 00:00:00 Completed IPV 2006-05-11 00:00:00 Completed Hep A, ped/adol, 2 dose Hep A, ped/adol, 2 dose 2005-01-23 00:00:00 Completed [facility] Pneumococcal conjugate P Pneumococcal conjugate P 2005-01-23 00:00:00 Completed [facility] HEPA,NOS 2005-01-23 00:00:00 Completed [facility] Pneumococcal 7 Conjugate, PCV7 (Prevnar7) 2005-01-23 00:00:00 Completed [facility] HEPA,NOS 2005-01-23 00:00:00 Completed [facility] Pneumococcal 7 Conjugate, PCV7 (Prevnar7) 2005-01-23 00:00:00 Completed [facility] HEPA,NOS 2005-01-23 00:00:00 Completed [facility] Pneumococcal 7 Conjugate, PCV7 (Prevnar7) 2005-01-23 00:00:00 Completed [facility] HEPA,NOS 2005-01-23 00:00:00 Completed [facility] Pneumococcal 7 Conjugate, PCV7 (Prevnar7) 2005-01-23 00:00:00 Completed [facility] HEPA,NOS 2005-01-23 00:00:00 Completed [facility] Pneumococcal 7 Conjugate, PCV7 (Prevnar7) 2005-01-23 00:00:00 Completed [facility] HEPA,NOS 2005-01-23 00:00:00 Completed [facility] Pneumococcal 7 Conjugate, PCV7 (Prevnar7) 2005-01-23 00:00:00 Completed [facility] HEPA,NOS 2005-01-23 00:00:00 Completed [facility] Pneumococcal 7 Conjugate, PCV7 (Prevnar7) 2005-01-23 00:00:00 Completed [facility] HEPA,NOS 2005-01-23 00:00:00 Completed [facility] Pneumococcal 7 Conjugate, PCV7 (Prevnar7) 2005-01-23 00:00:00 Completed [facility] HEPA,NOS 2005-01-23 00:00:00 Completed [facility] Pneumococcal 7 Conjugate, PCV7 (Prevnar7) 2005-01-23 00:00:00 Completed [facility] HEPA,NOS 2005-01-23 00:00:00 Completed [facility] Pneumococcal 7 Conjugate, PCV7 (Prevnar7) 2005-01-23 00:00:00 Completed [facility] HEPA,NOS 2005-01-23 00:00:00 Completed [facility] Pneumococcal 7 Conjugate, PCV7 (Prevnar7) 2005-01-23 00:00:00 Completed [facility] HEPA,NOS 2005-01-23 00:00:00 Completed [facility] Pneumococcal 7 Conjugate, PCV7 (Prevnar7) 2005-01-23 00:00:00 Completed [facility] HEPA,NOS 2005-01-23 00:00:00 Completed [facility] Pneumococcal 7 Conjugate, PCV7 (Prevnar7) 2005-01-23 00:00:00 Completed [facility] HEPA,NOS 2005-01-23 00:00:00 Completed [facility] Pneumococcal 7 Conjugate, PCV7 (Prevnar7) 2005-01-23 00:00:00 Completed [facility] HEPA,NOS 2005-01-23 00:00:00 Completed [facility] Pneumococcal 7 Conjugate, PCV7 (Prevnar7) 2005-01-23 00:00:00 Completed [facility] HEPA,NOS 2005-01-23 00:00:00 Completed [facility] Pneumococcal 7 Conjugate, PCV7 (Prevnar7) 2005-01-23 00:00:00 Completed [facility] HEPA,NOS 2005-01-23 00:00:00 Completed [facility] Pneumococcal 7 Conjugate, PCV7 (Prevnar7) 2005-01-23 00:00:00 Completed [facility] HEPA,NOS 2005-01-23 00:00:00 Completed [facility] Pneumococcal 7 Conjugate, PCV7 (Prevnar7) 2005-01-23 00:00:00 Completed [facility] HEPA,NOS 2005-01-23 00:00:00 Completed [facility] Pneumococcal 7 Conjugate, PCV7 (Prevnar7) 2005-01-23 00:00:00 Completed [facility] HEPA,NOS 2005-01-23 00:00:00 Completed [facility] Pneumococcal 7 Conjugate, PCV7 (Prevnar7) 2005-01-23 00:00:00 Completed [facility] HEPA,NOS 2005-01-23 00:00:00 Completed [facility] Pneumococcal 7 Conjugate, PCV7 (Prevnar7) 2005-01-23 00:00:00 Completed [facility] HEPA,NOS 2005-01-23 00:00:00 Completed [facility] Pneumococcal 7 Conjugate, PCV7 (Prevnar7) 2005-01-23 00:00:00 Completed [facility] HEPA,NOS 2005-01-23 00:00:00 Completed [facility] Pneumococcal 7 Conjugate, PCV7 (Prevnar7) 2005-01-23 00:00:00 Completed [facility] HEPA,NOS 2005-01-23 00:00:00 Completed [facility] Pneumococcal 7 Conjugate, PCV7 (Prevnar7) 2005-01-23 00:00:00 Completed [facility] HEPA,NOS 2005-01-23 00:00:00 Completed [facility] Pneumococcal 7 Conjugate, PCV7 (Prevnar7) 2005-01-23 00:00:00 Completed [facility] HEPA,NOS 2005-01-23 00:00:00 Completed Pneumococcal 7 Conjugate, PCV7 (Prevnar7) 2005-01-23 00:00:00 Completed Hep A, ped/adol, 2 dose Hep A, ped/adol, 2 dose 2004-01-17 00:00:00 Completed [facility] HEPA,NOS 2004-01-17 00:00:00 Completed [facility] HEPA,NOS 2004-01-17 00:00:00 Completed [facility] HEPA,NOS 2004-01-17 00:00:00 Completed [facility] HEPA,NOS 2004-01-17 00:00:00 Completed [facility] HEPA,NOS 2004-01-17 00:00:00 Completed [facility] HEPA,NOS 2004-01-17 00:00:00 Completed [facility] HEPA,NOS 2004-01-17 00:00:00 Completed [facility] HEPA,NOS 2004-01-17 00:00:00 Completed [facility] HEPA,NOS 2004-01-17 00:00:00 Completed [facility] HEPA,NOS 2004-01-17 00:00:00 Completed [facility] HEPA,NOS 2004-01-17 00:00:00 Completed [facility] HEPA,NOS 2004-01-17 00:00:00 Completed [facility] HEPA,NOS 2004-01-17 00:00:00 Completed [facility] HEPA,NOS 2004-01-17 00:00:00 Completed [facility] HEPA,NOS 2004-01-17 00:00:00 Completed [facility] HEPA,NOS 2004-01-17 00:00:00 Completed [facility] HEPA,NOS 2004-01-17 00:00:00 Completed [facility] HEPA,NOS 2004-01-17 00:00:00 Completed [facility] HEPA,NOS 2004-01-17 00:00:00 Completed [facility] HEPA,NOS 2004-01-17 00:00:00 Completed [facility] HEPA,NOS 2004-01-17 00:00:00 Completed [facility] HEPA,NOS 2004-01-17 00:00:00 Completed [facility] HEPA,NOS 2004-01-17 00:00:00 Completed [facility] HEPA,NOS 2004-01-17 00:00:00 Completed [facility] HEPA,NOS 2004-01-17 00:00:00 Completed [facility] HEPA,NOS 2004-01-17 00:00:00 Completed Pneumococcal conjugate P Pneumococcal conjugate P 2003-08-27 00:00:00 Completed [facility] Pneumococcal 7 Conjugate, PCV7 (Prevnar7) 2003-08-27 00:00:00 Completed [facility] Pneumococcal 7 Conjugate, PCV7 (Prevnar7) 2003-08-27 00:00:00 Completed [facility] Pneumococcal 7 Conjugate, PCV7 (Prevnar7) 2003-08-27 00:00:00 Completed [facility] Pneumococcal 7 Conjugate, PCV7 (Prevnar7) 2003-08-27 00:00:00 Completed [facility] Pneumococcal 7 Conjugate, PCV7 (Prevnar7) 2003-08-27 00:00:00 Completed [facility] Pneumococcal 7 Conjugate, PCV7 (Prevnar7) 2003-08-27 00:00:00 Completed [facility] Pneumococcal 7 Conjugate, PCV7 (Prevnar7) 2003-08-27 00:00:00 Completed [facility] Pneumococcal 7 Conjugate, PCV7 (Prevnar7) 2003-08-27 00:00:00 Completed [facility] Pneumococcal 7 Conjugate, PCV7 (Prevnar7) 2003-08-27 00:00:00 Completed [facility] Pneumococcal 7 Conjugate, PCV7 (Prevnar7) 2003-08-27 00:00:00 Completed [facility] Pneumococcal 7 Conjugate, PCV7 (Prevnar7) 2003-08-27 00:00:00 Completed [facility] Pneumococcal 7 Conjugate, PCV7 (Prevnar7) 2003-08-27 00:00:00 Completed [facility] Pneumococcal 7 Conjugate, PCV7 (Prevnar7) 2003-08-27 00:00:00 Completed [facility] Pneumococcal 7 Conjugate, PCV7 (Prevnar7) 2003-08-27 00:00:00 Completed [facility] Pneumococcal 7 Conjugate, PCV7 (Prevnar7) 2003-08-27 00:00:00 Completed [facility] Pneumococcal 7 Conjugate, PCV7 (Prevnar7) 2003-08-27 00:00:00 Completed [facility] Pneumococcal 7 Conjugate, PCV7 (Prevnar7) 2003-08-27 00:00:00 Completed [facility] Pneumococcal 7 Conjugate, PCV7 (Prevnar7) 2003-08-27 00:00:00 Completed [facility] Pneumococcal 7 Conjugate, PCV7 (Prevnar7) 2003-08-27 00:00:00 Completed [facility] Pneumococcal 7 Conjugate, PCV7 (Prevnar7) 2003-08-27 00:00:00 Completed [facility] Pneumococcal 7 Conjugate, PCV7 (Prevnar7) 2003-08-27 00:00:00 Completed [facility] Pneumococcal 7 Conjugate, PCV7 (Prevnar7) 2003-08-27 00:00:00 Completed [facility] Pneumococcal 7 Conjugate, PCV7 (Prevnar7) 2003-08-27 00:00:00 Completed [facility] Pneumococcal 7 Conjugate, PCV7 (Prevnar7) 2003-08-27 00:00:00 Completed [facility] Pneumococcal 7 Conjugate, PCV7 (Prevnar7) 2003-08-27 00:00:00 Completed [facility] Pneumococcal 7 Conjugate, PCV7 (Prevnar7) 2003-08-27 00:00:00 Completed DTaP DTaP 2002-12-02 00:00:00 Completed [facility] Hib (PRP-OMP) Hib (PRP-OMP) 2002-12-02 00:00:00 Completed [facility] MMR MMR 2002-12-02 00:00:00 Completed [facility] varicella varicella 2002-12-02 00:00:00 Completed [facility] DTaP, Unspecified Formulation 2002-12-02 00:00:00 Completed [facility] Haemophilus influenzae type b vaccine, conjugate unspecified formulation 2002-12-02 00:00:00 Completed [facility] MMR 2002-12-02 00:00:00 Completed [facility] Varicella (varivax)(chicken pox) 2002-12-02 00:00:00 Completed [facility] DTaP, Unspecified Formulation 2002-12-02 00:00:00 Completed [facility] Haemophilus influenzae type b vaccine, conjugate unspecified formulation 2002-12-02 00:00:00 Completed [facility] MMR 2002-12-02 00:00:00 Completed [facility] Varicella (varivax)(chicken pox) 2002-12-02 00:00:00 Completed [facility] DTaP, Unspecified Formulation 2002-12-02 00:00:00 Completed [facility] Haemophilus influenzae type b vaccine, conjugate unspecified formulation 2002-12-02 00:00:00 Completed [facility] MMR 2002-12-02 00:00:00 Completed [facility] Varicella (varivax)(chicken pox) 2002-12-02 00:00:00 Completed [facility] DTaP, Unspecified Formulation 2002-12-02 00:00:00 Completed [facility] Haemophilus influenzae type b vaccine, conjugate unspecified formulation 2002-12-02 00:00:00 Completed [facility] MMR 2002-12-02 00:00:00 Completed [facility] Varicella (varivax)(chicken pox) 2002-12-02 00:00:00 Completed [facility] DTaP, Unspecified Formulation 2002-12-02 00:00:00 Completed [facility] Haemophilus influenzae type b vaccine, conjugate unspecified formulation 2002-12-02 00:00:00 Completed [facility] MMR 2002-12-02 00:00:00 Completed [facility] Varicella (varivax)(chicken pox) 2002-12-02 00:00:00 Completed [facility] DTaP, Unspecified Formulation 2002-12-02 00:00:00 Completed [facility] Haemophilus influenzae type b vaccine, conjugate unspecified formulation 2002-12-02 00:00:00 Completed [facility] MMR 2002-12-02 00:00:00 Completed [facility] Varicella (varivax)(chicken pox) 2002-12-02 00:00:00 Completed [facility] DTaP, Unspecified Formulation 2002-12-02 00:00:00 Completed [facility] Haemophilus influenzae type b vaccine, conjugate unspecified formulation 2002-12-02 00:00:00 Completed [facility] MMR 2002-12-02 00:00:00 Completed [facility] Varicella (varivax)(chicken pox) 2002-12-02 00:00:00 Completed [facility] DTaP, Unspecified Formulation 2002-12-02 00:00:00 Completed [facility] Haemophilus influenzae type b vaccine, conjugate unspecified formulation 2002-12-02 00:00:00 Completed [facility] MMR 2002-12-02 00:00:00 Completed [facility] Varicella (varivax)(chicken pox) 2002-12-02 00:00:00 Completed [facility] DTaP, Unspecified Formulation 2002-12-02 00:00:00 Completed [facility] Haemophilus influenzae type b vaccine, conjugate unspecified formulation 2002-12-02 00:00:00 Completed [facility] MMR 2002-12-02 00:00:00 Completed [facility] Varicella (varivax)(chicken pox) 2002-12-02 00:00:00 Completed [facility] DTaP, Unspecified Formulation 2002-12-02 00:00:00 Completed [facility] Haemophilus influenzae type b vaccine, conjugate unspecified formulation 2002-12-02 00:00:00 Completed [facility] MMR 2002-12-02 00:00:00 Completed [facility] Varicella (varivax)(chicken pox) 2002-12-02 00:00:00 Completed [facility] DTaP, Unspecified Formulation 2002-12-02 00:00:00 Completed [facility] Haemophilus influenzae type b vaccine, conjugate unspecified formulation 2002-12-02 00:00:00 Completed [facility] MMR 2002-12-02 00:00:00 Completed [facility] Varicella (varivax)(chicken pox) 2002-12-02 00:00:00 Completed [facility] DTaP, Unspecified Formulation 2002-12-02 00:00:00 Completed [facility] Haemophilus influenzae type b vaccine, conjugate unspecified formulation 2002-12-02 00:00:00 Completed [facility] MMR 2002-12-02 00:00:00 Completed [facility] Varicella (varivax)(chicken pox) 2002-12-02 00:00:00 Completed [facility] DTaP, Unspecified Formulation 2002-12-02 00:00:00 Completed [facility] Haemophilus influenzae type b vaccine, conjugate unspecified formulation 2002-12-02 00:00:00 Completed [facility] MMR 2002-12-02 00:00:00 Completed [facility] Varicella (varivax)(chicken pox) 2002-12-02 00:00:00 Completed [facility] DTaP, Unspecified Formulation 2002-12-02 00:00:00 Completed [facility] Haemophilus influenzae type b vaccine, conjugate unspecified formulation 2002-12-02 00:00:00 Completed [facility] MMR 2002-12-02 00:00:00 Completed [facility] Varicella (varivax)(chicken pox) 2002-12-02 00:00:00 Completed [facility] DTaP, Unspecified Formulation 2002-12-02 00:00:00 Completed [facility] Haemophilus influenzae type b vaccine, conjugate unspecified formulation 2002-12-02 00:00:00 Completed [facility] MMR 2002-12-02 00:00:00 Completed [facility] Varicella (varivax)(chicken pox) 2002-12-02 00:00:00 Completed [facility] DTaP, Unspecified Formulation 2002-12-02 00:00:00 Completed [facility] Haemophilus influenzae type b vaccine, conjugate unspecified formulation 2002-12-02 00:00:00 Completed [facility] MMR 2002-12-02 00:00:00 Completed [facility] Varicella (varivax)(chicken pox) 2002-12-02 00:00:00 Completed [facility] DTaP, Unspecified Formulation 2002-12-02 00:00:00 Completed [facility] Haemophilus influenzae type b vaccine, conjugate unspecified formulation 2002-12-02 00:00:00 Completed [facility] MMR 2002-12-02 00:00:00 Completed [facility] Varicella (varivax)(chicken pox) 2002-12-02 00:00:00 Completed [facility] DTaP, Unspecified Formulation 2002-12-02 00:00:00 Completed [facility] Haemophilus influenzae type b vaccine, conjugate unspecified formulation 2002-12-02 00:00:00 Completed [facility] MMR 2002-12-02 00:00:00 Completed [facility] Varicella (varivax)(chicken pox) 2002-12-02 00:00:00 Completed [facility] DTaP, Unspecified Formulation 2002-12-02 00:00:00 Completed [facility] Haemophilus influenzae type b vaccine, conjugate unspecified formulation 2002-12-02 00:00:00 Completed [facility] MMR 2002-12-02 00:00:00 Completed [facility] Varicella (varivax)(chicken pox) 2002-12-02 00:00:00 Completed [facility] DTaP, Unspecified Formulation 2002-12-02 00:00:00 Completed [facility] Haemophilus influenzae type b vaccine, conjugate unspecified formulation 2002-12-02 00:00:00 Completed [facility] MMR 2002-12-02 00:00:00 Completed [facility] Varicella (varivax)(chicken pox) 2002-12-02 00:00:00 Completed [facility] DTaP, Unspecified Formulation 2002-12-02 00:00:00 Completed [facility] Haemophilus influenzae type b vaccine, conjugate unspecified formulation 2002-12-02 00:00:00 Completed [facility] MMR 2002-12-02 00:00:00 Completed [facility] Varicella (varivax)(chicken pox) 2002-12-02 00:00:00 Completed [facility] DTaP, Unspecified Formulation 2002-12-02 00:00:00 Completed [facility] Haemophilus influenzae type b vaccine, conjugate unspecified formulation 2002-12-02 00:00:00 Completed [facility] MMR 2002-12-02 00:00:00 Completed [facility] Varicella (varivax)(chicken pox) 2002-12-02 00:00:00 Completed [facility] DTaP, Unspecified Formulation 2002-12-02 00:00:00 Completed [facility] Haemophilus influenzae type b vaccine, conjugate unspecified formulation 2002-12-02 00:00:00 Completed [facility] MMR 2002-12-02 00:00:00 Completed [facility] Varicella (varivax)(chicken pox) 2002-12-02 00:00:00 Completed [facility] DTaP, Unspecified Formulation 2002-12-02 00:00:00 Completed [facility] Haemophilus influenzae type b vaccine, conjugate unspecified formulation 2002-12-02 00:00:00 Completed [facility] MMR 2002-12-02 00:00:00 Completed [facility] Varicella (varivax)(chicken pox) 2002-12-02 00:00:00 Completed [facility] DTaP, Unspecified Formulation 2002-12-02 00:00:00 Completed [facility] Haemophilus influenzae type b vaccine, conjugate unspecified formulation 2002-12-02 00:00:00 Completed [facility] MMR 2002-12-02 00:00:00 Completed [facility] Varicella (varivax)(chicken pox) 2002-12-02 00:00:00 Completed [facility] DTaP, Unspecified Formulation 2002-12-02 00:00:00 Completed Haemophilus influenzae type b vaccine, conjugate unspecified formulation 2002-12-02 00:00:00 Completed MMR 2002-12-02 00:00:00 Completed Varicella (varivax)(chicken pox) 2002-12-02 00:00:00 Completed DTaP DTaP 2002-05-16 00:00:00 Completed [facility] Hep B, adolescent or ped Hep B, adolescent or ped 2002-05-16 00:00:00 Completed [facility] Hib (PRP-OMP) Hib (PRP-OMP) 2002-05-16 00:00:00 Completed [facility] IPV IPV 2002-05-16 00:00:00 Completed [facility] DTaP, Unspecified Formulation 2002-05-16 00:00:00 Completed [facility] Hep B, Unspecified Formulation 2002-05-16 00:00:00 Completed [facility] Haemophilus influenzae type b vaccine, conjugate unspecified formulation 2002-05-16 00:00:00 Completed [facility] IPV 2002-05-16 00:00:00 Completed [facility] DTaP, Unspecified Formulation 2002-05-16 00:00:00 Completed [facility] Hep B, Unspecified Formulation 2002-05-16 00:00:00 Completed [facility] Haemophilus influenzae type b vaccine, conjugate unspecified formulation 2002-05-16 00:00:00 Completed [facility] IPV 2002-05-16 00:00:00 Completed [facility] DTaP, Unspecified Formulation 2002-05-16 00:00:00 Completed [facility] Hep B, Unspecified Formulation 2002-05-16 00:00:00 Completed [facility] Haemophilus influenzae type b vaccine, conjugate unspecified formulation 2002-05-16 00:00:00 Completed [facility] IPV 2002-05-16 00:00:00 Completed [facility] DTaP, Unspecified Formulation 2002-05-16 00:00:00 Completed [facility] Hep B, Unspecified Formulation 2002-05-16 00:00:00 Completed [facility] Haemophilus influenzae type b vaccine, conjugate unspecified formulation 2002-05-16 00:00:00 Completed [facility] IPV 2002-05-16 00:00:00 Completed [facility] DTaP, Unspecified Formulation 2002-05-16 00:00:00 Completed [facility] Hep B, Unspecified Formulation 2002-05-16 00:00:00 Completed [facility] Haemophilus influenzae type b vaccine, conjugate unspecified formulation 2002-05-16 00:00:00 Completed [facility] IPV 2002-05-16 00:00:00 Completed [facility] DTaP, Unspecified Formulation 2002-05-16 00:00:00 Completed [facility] Hep B, Unspecified Formulation 2002-05-16 00:00:00 Completed [facility] Haemophilus influenzae type b vaccine, conjugate unspecified formulation 2002-05-16 00:00:00 Completed [facility] IPV 2002-05-16 00:00:00 Completed [facility] DTaP, Unspecified Formulation 2002-05-16 00:00:00 Completed [facility] Hep B, Unspecified Formulation 2002-05-16 00:00:00 Completed [facility] Haemophilus influenzae type b vaccine, conjugate unspecified formulation 2002-05-16 00:00:00 Completed [facility] IPV 2002-05-16 00:00:00 Completed [facility] DTaP, Unspecified Formulation 2002-05-16 00:00:00 Completed [facility] Hep B, Unspecified Formulation 2002-05-16 00:00:00 Completed [facility] Haemophilus influenzae type b vaccine, conjugate unspecified formulation 2002-05-16 00:00:00 Completed [facility] IPV 2002-05-16 00:00:00 Completed [facility] DTaP, Unspecified Formulation 2002-05-16 00:00:00 Completed [facility] Hep B, Unspecified Formulation 2002-05-16 00:00:00 Completed [facility] Haemophilus influenzae type b vaccine, conjugate unspecified formulation 2002-05-16 00:00:00 Completed [facility] IPV 2002-05-16 00:00:00 Completed [facility] DTaP, Unspecified Formulation 2002-05-16 00:00:00 Completed [facility] Hep B, Unspecified Formulation 2002-05-16 00:00:00 Completed [facility] Haemophilus influenzae type b vaccine, conjugate unspecified formulation 2002-05-16 00:00:00 Completed [facility] IPV 2002-05-16 00:00:00 Completed [facility] DTaP, Unspecified Formulation 2002-05-16 00:00:00 Completed [facility] Hep B, Unspecified Formulation 2002-05-16 00:00:00 Completed [facility] Haemophilus influenzae type b vaccine, conjugate unspecified formulation 2002-05-16 00:00:00 Completed [facility] IPV 2002-05-16 00:00:00 Completed [facility] DTaP, Unspecified Formulation 2002-05-16 00:00:00 Completed [facility] Hep B, Unspecified Formulation 2002-05-16 00:00:00 Completed [facility] Haemophilus influenzae type b vaccine, conjugate unspecified formulation 2002-05-16 00:00:00 Completed [facility] IPV 2002-05-16 00:00:00 Completed [facility] DTaP, Unspecified Formulation 2002-05-16 00:00:00 Completed [facility] Hep B, Unspecified Formulation 2002-05-16 00:00:00 Completed [facility] Haemophilus influenzae type b vaccine, conjugate unspecified formulation 2002-05-16 00:00:00 Completed [facility] IPV 2002-05-16 00:00:00 Completed [facility] DTaP, Unspecified Formulation 2002-05-16 00:00:00 Completed [facility] Hep B, Unspecified Formulation 2002-05-16 00:00:00 Completed [facility] Haemophilus influenzae type b vaccine, conjugate unspecified formulation 2002-05-16 00:00:00 Completed [facility] IPV 2002-05-16 00:00:00 Completed [facility] DTaP, Unspecified Formulation 2002-05-16 00:00:00 Completed [facility] Hep B, Unspecified Formulation 2002-05-16 00:00:00 Completed [facility] Haemophilus influenzae type b vaccine, conjugate unspecified formulation 2002-05-16 00:00:00 Completed [facility] IPV 2002-05-16 00:00:00 Completed [facility] DTaP, Unspecified Formulation 2002-05-16 00:00:00 Completed [facility] Hep B, Unspecified Formulation 2002-05-16 00:00:00 Completed [facility] Haemophilus influenzae type b vaccine, conjugate unspecified formulation 2002-05-16 00:00:00 Completed [facility] IPV 2002-05-16 00:00:00 Completed [facility] DTaP, Unspecified Formulation 2002-05-16 00:00:00 Completed [facility] Hep B, Unspecified Formulation 2002-05-16 00:00:00 Completed [facility] Haemophilus influenzae type b vaccine, conjugate unspecified formulation 2002-05-16 00:00:00 Completed [facility] IPV 2002-05-16 00:00:00 Completed [facility] DTaP, Unspecified Formulation 2002-05-16 00:00:00 Completed [facility] Hep B, Unspecified Formulation 2002-05-16 00:00:00 Completed [facility] Haemophilus influenzae type b vaccine, conjugate unspecified formulation 2002-05-16 00:00:00 Completed [facility] IPV 2002-05-16 00:00:00 Completed [facility] DTaP, Unspecified Formulation 2002-05-16 00:00:00 Completed [facility] Hep B, Unspecified Formulation 2002-05-16 00:00:00 Completed [facility] Haemophilus influenzae type b vaccine, conjugate unspecified formulation 2002-05-16 00:00:00 Completed [facility] IPV 2002-05-16 00:00:00 Completed [facility] DTaP, Unspecified Formulation 2002-05-16 00:00:00 Completed [facility] Hep B, Unspecified Formulation 2002-05-16 00:00:00 Completed [facility] Haemophilus influenzae type b vaccine, conjugate unspecified formulation 2002-05-16 00:00:00 Completed [facility] IPV 2002-05-16 00:00:00 Completed [facility] DTaP, Unspecified Formulation 2002-05-16 00:00:00 Completed [facility] Hep B, Unspecified Formulation 2002-05-16 00:00:00 Completed [facility] Haemophilus influenzae type b vaccine, conjugate unspecified formulation 2002-05-16 00:00:00 Completed [facility] IPV 2002-05-16 00:00:00 Completed [facility] DTaP, Unspecified Formulation 2002-05-16 00:00:00 Completed [facility] Hep B, Unspecified Formulation 2002-05-16 00:00:00 Completed [facility] Haemophilus influenzae type b vaccine, conjugate unspecified formulation 2002-05-16 00:00:00 Completed [facility] IPV 2002-05-16 00:00:00 Completed [facility] DTaP, Unspecified Formulation 2002-05-16 00:00:00 Completed [facility] Hep B, Unspecified Formulation 2002-05-16 00:00:00 Completed [facility] Haemophilus influenzae type b vaccine, conjugate unspecified formulation 2002-05-16 00:00:00 Completed [facility] IPV 2002-05-16 00:00:00 Completed [facility] DTaP, Unspecified Formulation 2002-05-16 00:00:00 Completed [facility] Hep B, Unspecified Formulation 2002-05-16 00:00:00 Completed [facility] Haemophilus influenzae type b vaccine, conjugate unspecified formulation 2002-05-16 00:00:00 Completed [facility] IPV 2002-05-16 00:00:00 Completed [facility] DTaP, Unspecified Formulation 2002-05-16 00:00:00 Completed [facility] Hep B, Unspecified Formulation 2002-05-16 00:00:00 Completed [facility] Haemophilus influenzae type b vaccine, conjugate unspecified formulation 2002-05-16 00:00:00 Completed [facility] IPV 2002-05-16 00:00:00 Completed [facility] DTaP, Unspecified Formulation 2002-05-16 00:00:00 Completed Hep B, Unspecified Formulation 2002-05-16 00:00:00 Completed Haemophilus influenzae type b vaccine, conjugate unspecified formulation 2002-05-16 00:00:00 Completed IPV 2002-05-16 00:00:00 Completed DTaP DTaP 2002-03-13 00:00:00 Completed [facility] Hib (PRP-OMP) Hib (PRP-OMP) 2002-03-13 00:00:00 Completed [facility] Pneumococcal conjugate P Pneumococcal conjugate P 2002-03-13 00:00:00 Completed [facility] IPV IPV 2002-03-13 00:00:00 Completed [facility] DTaP, Unspecified Formulation 2002-03-13 00:00:00 Completed [facility] Haemophilus influenzae type b vaccine, conjugate unspecified formulation 2002-03-13 00:00:00 Completed [facility] Pneumococcal 7 Conjugate, PCV7 (Prevnar7) 2002-03-13 00:00:00 Completed [facility] IPV 2002-03-13 00:00:00 Completed [facility] DTaP, Unspecified Formulation 2002-03-13 00:00:00 Completed [facility] Haemophilus influenzae type b vaccine, conjugate unspecified formulation 2002-03-13 00:00:00 Completed [facility] Pneumococcal 7 Conjugate, PCV7 (Prevnar7) 2002-03-13 00:00:00 Completed [facility] IPV 2002-03-13 00:00:00 Completed [facility] DTaP, Unspecified Formulation 2002-03-13 00:00:00 Completed [facility] Haemophilus influenzae type b vaccine, conjugate unspecified formulation 2002-03-13 00:00:00 Completed [facility] Pneumococcal 7 Conjugate, PCV7 (Prevnar7) 2002-03-13 00:00:00 Completed [facility] IPV 2002-03-13 00:00:00 Completed [facility] DTaP, Unspecified Formulation 2002-03-13 00:00:00 Completed [facility] Haemophilus influenzae type b vaccine, conjugate unspecified formulation 2002-03-13 00:00:00 Completed [facility] Pneumococcal 7 Conjugate, PCV7 (Prevnar7) 2002-03-13 00:00:00 Completed [facility] IPV 2002-03-13 00:00:00 Completed [facility] DTaP, Unspecified Formulation 2002-03-13 00:00:00 Completed [facility] Haemophilus influenzae type b vaccine, conjugate unspecified formulation 2002-03-13 00:00:00 Completed [facility] Pneumococcal 7 Conjugate, PCV7 (Prevnar7) 2002-03-13 00:00:00 Completed [facility] IPV 2002-03-13 00:00:00 Completed [facility] DTaP, Unspecified Formulation 2002-03-13 00:00:00 Completed [facility] Haemophilus influenzae type b vaccine, conjugate unspecified formulation 2002-03-13 00:00:00 Completed [facility] Pneumococcal 7 Conjugate, PCV7 (Prevnar7) 2002-03-13 00:00:00 Completed [facility] IPV 2002-03-13 00:00:00 Completed [facility] DTaP, Unspecified Formulation 2002-03-13 00:00:00 Completed [facility] Haemophilus influenzae type b vaccine, conjugate unspecified formulation 2002-03-13 00:00:00 Completed [facility] Pneumococcal 7 Conjugate, PCV7 (Prevnar7) 2002-03-13 00:00:00 Completed [facility] IPV 2002-03-13 00:00:00 Completed [facility] DTaP, Unspecified Formulation 2002-03-13 00:00:00 Completed [facility] Haemophilus influenzae type b vaccine, conjugate unspecified formulation 2002-03-13 00:00:00 Completed [facility] Pneumococcal 7 Conjugate, PCV7 (Prevnar7) 2002-03-13 00:00:00 Completed [facility] IPV 2002-03-13 00:00:00 Completed [facility] DTaP, Unspecified Formulation 2002-03-13 00:00:00 Completed [facility] Haemophilus influenzae type b vaccine, conjugate unspecified formulation 2002-03-13 00:00:00 Completed [facility] Pneumococcal 7 Conjugate, PCV7 (Prevnar7) 2002-03-13 00:00:00 Completed [facility] IPV 2002-03-13 00:00:00 Completed [facility] DTaP, Unspecified Formulation 2002-03-13 00:00:00 Completed [facility] Haemophilus influenzae type b vaccine, conjugate unspecified formulation 2002-03-13 00:00:00 Completed [facility] Pneumococcal 7 Conjugate, PCV7 (Prevnar7) 2002-03-13 00:00:00 Completed [facility] IPV 2002-03-13 00:00:00 Completed [facility] DTaP, Unspecified Formulation 2002-03-13 00:00:00 Completed [facility] Haemophilus influenzae type b vaccine, conjugate unspecified formulation 2002-03-13 00:00:00 Completed [facility] Pneumococcal 7 Conjugate, PCV7 (Prevnar7) 2002-03-13 00:00:00 Completed [facility] IPV 2002-03-13 00:00:00 Completed [facility] DTaP, Unspecified Formulation 2002-03-13 00:00:00 Completed [facility] Haemophilus influenzae type b vaccine, conjugate unspecified formulation 2002-03-13 00:00:00 Completed [facility] Pneumococcal 7 Conjugate, PCV7 (Prevnar7) 2002-03-13 00:00:00 Completed [facility] IPV 2002-03-13 00:00:00 Completed [facility] DTaP, Unspecified Formulation 2002-03-13 00:00:00 Completed [facility] Haemophilus influenzae type b vaccine, conjugate unspecified formulation 2002-03-13 00:00:00 Completed [facility] Pneumococcal 7 Conjugate, PCV7 (Prevnar7) 2002-03-13 00:00:00 Completed [facility] IPV 2002-03-13 00:00:00 Completed [facility] DTaP, Unspecified Formulation 2002-03-13 00:00:00 Completed [facility] Haemophilus influenzae type b vaccine, conjugate unspecified formulation 2002-03-13 00:00:00 Completed [facility] Pneumococcal 7 Conjugate, PCV7 (Prevnar7) 2002-03-13 00:00:00 Completed [facility] IPV 2002-03-13 00:00:00 Completed [facility] DTaP, Unspecified Formulation 2002-03-13 00:00:00 Completed [facility] Haemophilus influenzae type b vaccine, conjugate unspecified formulation 2002-03-13 00:00:00 Completed [facility] Pneumococcal 7 Conjugate, PCV7 (Prevnar7) 2002-03-13 00:00:00 Completed [facility] IPV 2002-03-13 00:00:00 Completed [facility] DTaP, Unspecified Formulation 2002-03-13 00:00:00 Completed [facility] Haemophilus influenzae type b vaccine, conjugate unspecified formulation 2002-03-13 00:00:00 Completed [facility] Pneumococcal 7 Conjugate, PCV7 (Prevnar7) 2002-03-13 00:00:00 Completed [facility] IPV 2002-03-13 00:00:00 Completed [facility] DTaP, Unspecified Formulation 2002-03-13 00:00:00 Completed [facility] Haemophilus influenzae type b vaccine, conjugate unspecified formulation 2002-03-13 00:00:00 Completed [facility] Pneumococcal 7 Conjugate, PCV7 (Prevnar7) 2002-03-13 00:00:00 Completed [facility] IPV 2002-03-13 00:00:00 Completed [facility] DTaP, Unspecified Formulation 2002-03-13 00:00:00 Completed [facility] Haemophilus influenzae type b vaccine, conjugate unspecified formulation 2002-03-13 00:00:00 Completed [facility] Pneumococcal 7 Conjugate, PCV7 (Prevnar7) 2002-03-13 00:00:00 Completed [facility] IPV 2002-03-13 00:00:00 Completed [facility] DTaP, Unspecified Formulation 2002-03-13 00:00:00 Completed [facility] Haemophilus influenzae type b vaccine, conjugate unspecified formulation 2002-03-13 00:00:00 Completed [facility] Pneumococcal 7 Conjugate, PCV7 (Prevnar7) 2002-03-13 00:00:00 Completed [facility] IPV 2002-03-13 00:00:00 Completed [facility] DTaP, Unspecified Formulation 2002-03-13 00:00:00 Completed [facility] Haemophilus influenzae type b vaccine, conjugate unspecified formulation 2002-03-13 00:00:00 Completed [facility] Pneumococcal 7 Conjugate, PCV7 (Prevnar7) 2002-03-13 00:00:00 Completed [facility] IPV 2002-03-13 00:00:00 Completed [facility] DTaP, Unspecified Formulation 2002-03-13 00:00:00 Completed [facility] Haemophilus influenzae type b vaccine, conjugate unspecified formulation 2002-03-13 00:00:00 Completed [facility] Pneumococcal 7 Conjugate, PCV7 (Prevnar7) 2002-03-13 00:00:00 Completed [facility] IPV 2002-03-13 00:00:00 Completed [facility] DTaP, Unspecified Formulation 2002-03-13 00:00:00 Completed [facility] Haemophilus influenzae type b vaccine, conjugate unspecified formulation 2002-03-13 00:00:00 Completed [facility] Pneumococcal 7 Conjugate, PCV7 (Prevnar7) 2002-03-13 00:00:00 Completed [facility] IPV 2002-03-13 00:00:00 Completed [facility] DTaP, Unspecified Formulation 2002-03-13 00:00:00 Completed [facility] Haemophilus influenzae type b vaccine, conjugate unspecified formulation 2002-03-13 00:00:00 Completed [facility] Pneumococcal 7 Conjugate, PCV7 (Prevnar7) 2002-03-13 00:00:00 Completed [facility] IPV 2002-03-13 00:00:00 Completed [facility] DTaP, Unspecified Formulation 2002-03-13 00:00:00 Completed [facility] Haemophilus influenzae type b vaccine, conjugate unspecified formulation 2002-03-13 00:00:00 Completed [facility] Pneumococcal 7 Conjugate, PCV7 (Prevnar7) 2002-03-13 00:00:00 Completed [facility] IPV 2002-03-13 00:00:00 Completed [facility] DTaP, Unspecified Formulation 2002-03-13 00:00:00 Completed [facility] Haemophilus influenzae type b vaccine, conjugate unspecified formulation 2002-03-13 00:00:00 Completed [facility] Pneumococcal 7 Conjugate, PCV7 (Prevnar7) 2002-03-13 00:00:00 Completed [facility] IPV 2002-03-13 00:00:00 Completed [facility] DTaP, Unspecified Formulation 2002-03-13 00:00:00 Completed [facility] Haemophilus influenzae type b vaccine, conjugate unspecified formulation 2002-03-13 00:00:00 Completed Pneumococcal 7 Conjugate, PCV7 (Prevnar7) 2002-03-13 00:00:00 Completed IPV 2002-03-13 00:00:00 Completed DTaP DTaP 2002-01-16 00:00:00 Completed [facility] Hep B, adolescent or ped Hep B, adolescent or ped 2002-01-16 00:00:00 Completed [facility] Hib (PRP-OMP) Hib (PRP-OMP) 2002-01-16 00:00:00 Completed [facility] Pneumococcal conjugate P Pneumococcal conjugate P 2002-01-16 00:00:00 Completed [facility] IPV IPV 2002-01-16 00:00:00 Completed [facility] DTaP, Unspecified Formulation 2002-01-16 00:00:00 Completed [facility] Hep B, Unspecified Formulation 2002-01-16 00:00:00 Completed [facility] Haemophilus influenzae type b vaccine, conjugate unspecified formulation 2002-01-16 00:00:00 Completed [facility] Pneumococcal 7 Conjugate, PCV7 (Prevnar7) 2002-01-16 00:00:00 Completed [facility] IPV 2002-01-16 00:00:00 Completed [facility] DTaP, Unspecified Formulation 2002-01-16 00:00:00 Completed [facility] Hep B, Unspecified Formulation 2002-01-16 00:00:00 Completed [facility] Haemophilus influenzae type b vaccine, conjugate unspecified formulation 2002-01-16 00:00:00 Completed [facility] Pneumococcal 7 Conjugate, PCV7 (Prevnar7) 2002-01-16 00:00:00 Completed [facility] IPV 2002-01-16 00:00:00 Completed [facility] DTaP, Unspecified Formulation 2002-01-16 00:00:00 Completed [facility] Hep B, Unspecified Formulation 2002-01-16 00:00:00 Completed [facility] Haemophilus influenzae type b vaccine, conjugate unspecified formulation 2002-01-16 00:00:00 Completed [facility] Pneumococcal 7 Conjugate, PCV7 (Prevnar7) 2002-01-16 00:00:00 Completed [facility] IPV 2002-01-16 00:00:00 Completed [facility] DTaP, Unspecified Formulation 2002-01-16 00:00:00 Completed [facility] Hep B, Unspecified Formulation 2002-01-16 00:00:00 Completed [facility] Haemophilus influenzae type b vaccine, conjugate unspecified formulation 2002-01-16 00:00:00 Completed [facility] Pneumococcal 7 Conjugate, PCV7 (Prevnar7) 2002-01-16 00:00:00 Completed [facility] IPV 2002-01-16 00:00:00 Completed [facility] DTaP, Unspecified Formulation 2002-01-16 00:00:00 Completed [facility] Hep B, Unspecified Formulation 2002-01-16 00:00:00 Completed [facility] Haemophilus influenzae type b vaccine, conjugate unspecified formulation 2002-01-16 00:00:00 Completed [facility] Pneumococcal 7 Conjugate, PCV7 (Prevnar7) 2002-01-16 00:00:00 Completed [facility] IPV 2002-01-16 00:00:00 Completed [facility] DTaP, Unspecified Formulation 2002-01-16 00:00:00 Completed [facility] Hep B, Unspecified Formulation 2002-01-16 00:00:00 Completed [facility] Haemophilus influenzae type b vaccine, conjugate unspecified formulation 2002-01-16 00:00:00 Completed [facility] Pneumococcal 7 Conjugate, PCV7 (Prevnar7) 2002-01-16 00:00:00 Completed [facility] IPV 2002-01-16 00:00:00 Completed [facility] DTaP, Unspecified Formulation 2002-01-16 00:00:00 Completed [facility] Hep B, Unspecified Formulation 2002-01-16 00:00:00 Completed [facility] Haemophilus influenzae type b vaccine, conjugate unspecified formulation 2002-01-16 00:00:00 Completed [facility] Pneumococcal 7 Conjugate, PCV7 (Prevnar7) 2002-01-16 00:00:00 Completed [facility] IPV 2002-01-16 00:00:00 Completed [facility] DTaP, Unspecified Formulation 2002-01-16 00:00:00 Completed [facility] Hep B, Unspecified Formulation 2002-01-16 00:00:00 Completed [facility] Haemophilus influenzae type b vaccine, conjugate unspecified formulation 2002-01-16 00:00:00 Completed [facility] Pneumococcal 7 Conjugate, PCV7 (Prevnar7) 2002-01-16 00:00:00 Completed [facility] IPV 2002-01-16 00:00:00 Completed [facility] DTaP, Unspecified Formulation 2002-01-16 00:00:00 Completed [facility] Hep B, Unspecified Formulation 2002-01-16 00:00:00 Completed [facility] Haemophilus influenzae type b vaccine, conjugate unspecified formulation 2002-01-16 00:00:00 Completed [facility] Pneumococcal 7 Conjugate, PCV7 (Prevnar7) 2002-01-16 00:00:00 Completed [facility] IPV 2002-01-16 00:00:00 Completed [facility] DTaP, Unspecified Formulation 2002-01-16 00:00:00 Completed [facility] Hep B, Unspecified Formulation 2002-01-16 00:00:00 Completed [facility] Haemophilus influenzae type b vaccine, conjugate unspecified formulation 2002-01-16 00:00:00 Completed [facility] Pneumococcal 7 Conjugate, PCV7 (Prevnar7) 2002-01-16 00:00:00 Completed [facility] IPV 2002-01-16 00:00:00 Completed [facility] DTaP, Unspecified Formulation 2002-01-16 00:00:00 Completed [facility] Hep B, Unspecified Formulation 2002-01-16 00:00:00 Completed [facility] Haemophilus influenzae type b vaccine, conjugate unspecified formulation 2002-01-16 00:00:00 Completed [facility] Pneumococcal 7 Conjugate, PCV7 (Prevnar7) 2002-01-16 00:00:00 Completed [facility] IPV 2002-01-16 00:00:00 Completed [facility] DTaP, Unspecified Formulation 2002-01-16 00:00:00 Completed [facility] Hep B, Unspecified Formulation 2002-01-16 00:00:00 Completed [facility] Haemophilus influenzae type b vaccine, conjugate unspecified formulation 2002-01-16 00:00:00 Completed [facility] Pneumococcal 7 Conjugate, PCV7 (Prevnar7) 2002-01-16 00:00:00 Completed [facility] IPV 2002-01-16 00:00:00 Completed [facility] DTaP, Unspecified Formulation 2002-01-16 00:00:00 Completed [facility] Hep B, Unspecified Formulation 2002-01-16 00:00:00 Completed [facility] Haemophilus influenzae type b vaccine, conjugate unspecified formulation 2002-01-16 00:00:00 Completed [facility] Pneumococcal 7 Conjugate, PCV7 (Prevnar7) 2002-01-16 00:00:00 Completed [facility] IPV 2002-01-16 00:00:00 Completed [facility] DTaP, Unspecified Formulation 2002-01-16 00:00:00 Completed [facility] Hep B, Unspecified Formulation 2002-01-16 00:00:00 Completed [facility] Haemophilus influenzae type b vaccine, conjugate unspecified formulation 2002-01-16 00:00:00 Completed [facility] Pneumococcal 7 Conjugate, PCV7 (Prevnar7) 2002-01-16 00:00:00 Completed [facility] IPV 2002-01-16 00:00:00 Completed [facility] DTaP, Unspecified Formulation 2002-01-16 00:00:00 Completed [facility] Hep B, Unspecified Formulation 2002-01-16 00:00:00 Completed [facility] Haemophilus influenzae type b vaccine, conjugate unspecified formulation 2002-01-16 00:00:00 Completed [facility] Pneumococcal 7 Conjugate, PCV7 (Prevnar7) 2002-01-16 00:00:00 Completed [facility] IPV 2002-01-16 00:00:00 Completed [facility] DTaP, Unspecified Formulation 2002-01-16 00:00:00 Completed [facility] Hep B, Unspecified Formulation 2002-01-16 00:00:00 Completed [facility] Haemophilus influenzae type b vaccine, conjugate unspecified formulation 2002-01-16 00:00:00 Completed [facility] Pneumococcal 7 Conjugate, PCV7 (Prevnar7) 2002-01-16 00:00:00 Completed [facility] IPV 2002-01-16 00:00:00 Completed [facility] DTaP, Unspecified Formulation 2002-01-16 00:00:00 Completed [facility] Hep B, Unspecified Formulation 2002-01-16 00:00:00 Completed [facility] Haemophilus influenzae type b vaccine, conjugate unspecified formulation 2002-01-16 00:00:00 Completed [facility] Pneumococcal 7 Conjugate, PCV7 (Prevnar7) 2002-01-16 00:00:00 Completed [facility] IPV 2002-01-16 00:00:00 Completed [facility] DTaP, Unspecified Formulation 2002-01-16 00:00:00 Completed [facility] Hep B, Unspecified Formulation 2002-01-16 00:00:00 Completed [facility] Haemophilus influenzae type b vaccine, conjugate unspecified formulation 2002-01-16 00:00:00 Completed [facility] Pneumococcal 7 Conjugate, PCV7 (Prevnar7) 2002-01-16 00:00:00 Completed [facility] IPV 2002-01-16 00:00:00 Completed [facility] DTaP, Unspecified Formulation 2002-01-16 00:00:00 Completed [facility] Hep B, Unspecified Formulation 2002-01-16 00:00:00 Completed [facility] Haemophilus influenzae type b vaccine, conjugate unspecified formulation 2002-01-16 00:00:00 Completed [facility] Pneumococcal 7 Conjugate, PCV7 (Prevnar7) 2002-01-16 00:00:00 Completed [facility] IPV 2002-01-16 00:00:00 Completed [facility] DTaP, Unspecified Formulation 2002-01-16 00:00:00 Completed [facility] Hep B, Unspecified Formulation 2002-01-16 00:00:00 Completed [facility] Haemophilus influenzae type b vaccine, conjugate unspecified formulation 2002-01-16 00:00:00 Completed [facility] Pneumococcal 7 Conjugate, PCV7 (Prevnar7) 2002-01-16 00:00:00 Completed [facility] IPV 2002-01-16 00:00:00 Completed [facility] DTaP, Unspecified Formulation 2002-01-16 00:00:00 Completed [facility] Hep B, Unspecified Formulation 2002-01-16 00:00:00 Completed [facility] Haemophilus influenzae type b vaccine, conjugate unspecified formulation 2002-01-16 00:00:00 Completed [facility] Pneumococcal 7 Conjugate, PCV7 (Prevnar7) 2002-01-16 00:00:00 Completed [facility] IPV 2002-01-16 00:00:00 Completed [facility] DTaP, Unspecified Formulation 2002-01-16 00:00:00 Completed [facility] Hep B, Unspecified Formulation 2002-01-16 00:00:00 Completed [facility] Haemophilus influenzae type b vaccine, conjugate unspecified formulation 2002-01-16 00:00:00 Completed [facility] Pneumococcal 7 Conjugate, PCV7 (Prevnar7) 2002-01-16 00:00:00 Completed [facility] IPV 2002-01-16 00:00:00 Completed [facility] DTaP, Unspecified Formulation 2002-01-16 00:00:00 Completed [facility] Hep B, Unspecified Formulation 2002-01-16 00:00:00 Completed [facility] Haemophilus influenzae type b vaccine, conjugate unspecified formulation 2002-01-16 00:00:00 Completed [facility] Pneumococcal 7 Conjugate, PCV7 (Prevnar7) 2002-01-16 00:00:00 Completed [facility] IPV 2002-01-16 00:00:00 Completed [facility] DTaP, Unspecified Formulation 2002-01-16 00:00:00 Completed [facility] Hep B, Unspecified Formulation 2002-01-16 00:00:00 Completed [facility] Haemophilus influenzae type b vaccine, conjugate unspecified formulation 2002-01-16 00:00:00 Completed [facility] Pneumococcal 7 Conjugate, PCV7 (Prevnar7) 2002-01-16 00:00:00 Completed [facility] IPV 2002-01-16 00:00:00 Completed [facility] DTaP, Unspecified Formulation 2002-01-16 00:00:00 Completed [facility] Hep B, Unspecified Formulation 2002-01-16 00:00:00 Completed [facility] Haemophilus influenzae type b vaccine, conjugate unspecified formulation 2002-01-16 00:00:00 Completed [facility] Pneumococcal 7 Conjugate, PCV7 (Prevnar7) 2002-01-16 00:00:00 Completed [facility] IPV 2002-01-16 00:00:00 Completed [facility] DTaP, Unspecified Formulation 2002-01-16 00:00:00 Completed Hep B, Unspecified Formulation 2002-01-16 00:00:00 Completed Haemophilus influenzae type b vaccine, conjugate unspecified formulation 2002-01-16 00:00:00 Completed Pneumococcal 7 Conjugate, PCV7 (Prevnar7) 2002-01-16 00:00:00 Completed IPV 2002-01-16 00:00:00 Completed Hep B, adolescent or ped Hep B, adolescent or ped 2001 00:00:00 Completed [facility] Hep B, Unspecified Formulation 2001 00:00:00 Completed [facility] Hep B, Unspecified Formulation 2001 00:00:00 Completed [facility] Hep B, Unspecified Formulation 2001 00:00:00 Completed [facility] Hep B, Unspecified Formulation 2001 00:00:00 Completed [facility] Hep B, Unspecified Formulation 2001 00:00:00 Completed [facility] Hep B, Unspecified Formulation 2001 00:00:00 Completed [facility] Hep B, Unspecified Formulation 2001 00:00:00 Completed [facility] Hep B, Unspecified Formulation 2001 00:00:00 Completed [facility] Hep B, Unspecified Formulation 2001 00:00:00 Completed [facility] Hep B, Unspecified Formulation 2001 00:00:00 Completed [facility] Hep B, Unspecified Formulation 2001 00:00:00 Completed [facility] Hep B, Unspecified Formulation 2001 00:00:00 Completed [facility] Hep B, Unspecified Formulation 2001 00:00:00 Completed [facility] Hep B, Unspecified Formulation 2001 00:00:00 Completed [facility] Hep B, Unspecified Formulation 2001 00:00:00 Completed [facility] Hep B, Unspecified Formulation 2001 00:00:00 Completed [facility] Hep B, Unspecified Formulation 2001 00:00:00 Completed [facility] Hep B, Unspecified Formulation 2001 00:00:00 Completed [facility] Hep B, Unspecified Formulation 2001 00:00:00 Completed [facility] Hep B, Unspecified Formulation 2001 00:00:00 Completed [facility] Hep B, Unspecified Formulation 2001 00:00:00 Completed [facility] Hep B, Unspecified Formulation 2001 00:00:00 Completed [facility] Hep B, Unspecified Formulation 2001 00:00:00 Completed [facility] Hep B, Unspecified Formulation 2001 00:00:00 Completed [facility] Hep B, Unspecified Formulation 2001 00:00:00 Completed [facility] Hep B, Unspecified Formulation 2001 00:00:00 Completed TDAP Unknown Completed [facility] SARS-COV-2 COVID-19 PFIZER VACCINE Unknown Completed [facility] DTaP, Unspecified Formulation Unknown Completed [facility] Flu Trivalent Unknown Completed [facility] HEPA,NOS Unknown Completed [facility] Hep B, Unspecified Formulation Unknown Completed [facility] Haemophilus influenzae type b vaccine, conjugate unspecified formulation Unknown Completed [facility] HPV Unknown Completed [facility] Meningococcal Polysaccharide (groups A, C, Y and W-135) conjugate vaccine (MCV4P) Unknown Completed [facility] MMR Unknown Completed [facility] Pneumococcal 7 Conjugate, PCV7 (Prevnar7) Unknown Completed [facility] IPV Unknown Completed [facility] Varicella (varivax)(chicken pox) Unknown Completed [facility] Vital Signs Vital Name Observation Time Observation Value Comments S ource Systolic blood pressure 2025-05-25 14:34:00 103 mm[Hg] [facility] Diastolic blood pressure 2025-05-25 14:34:00 72 mm[Hg] [facility] Heart rate 2025-05-25 14:34:00 73 /min [facility] Respiratory rate 2025-05-25 14:34:00 18 /min [facility] Body height 2025-05-25 14:34:00 157.5 cm [facility] Body weight 2025-05-25 14:34:00 74.39 kg [facility] BMI 2025-05-25 14:34:00 30.00 kg/m2 [facility] Systolic blood pressure 2025-05-14 15:52:00 122 mm[Hg] [facility] Diastolic blood pressure 2025-05-14 15:52:00 82 mm[Hg] [facility] Heart rate 2025-05-14 15:52:00 92 /min [facility] Body temperature 2025-05-14 15:52:00 36.72 [place] [facility] Body height 2025-05-14 15:52:00 157.5 cm [facility] Body weight 2025-05-14 15:52:00 75.297 kg [facility] BMI 2025-05-14 15:52:00 30.36 kg/m2 [facility] Systolic blood pressure 2025-04-05 16:30:00 117 mm[Hg] [facility] Diastolic blood pressure 2025-04-05 16:30:00 76 mm[Hg] [facility] Heart rate 2025-04-05 16:30:00 87 /min [facility] Body temperature 2025-04-05 16:30:00 36.67 [place] [facility] Respiratory rate 2025-04-05 16:30:00 16 /min [facility] Oxygen saturation in Arterial blood by Pulse oximetry 2025-04-05 16:30:00 99 /min [facility] Body height 2025-04-04 11:29:00 157.5 cm [facility] Body weight 2025-04-04 11:29:00 84.052 kg [facility] BMI 2025-04-04 11:29:00 33.89 kg/m2 [facility] Systolic blood pressure 2025-03-30 14:53:00 118 mm[Hg] [facility] Diastolic blood pressure 2025-03-30 14:53:00 82 mm[Hg] [facility] Heart rate 2025-03-30 14:53:00 111 /min [facility] Body temperature 2025-03-30 14:53:00 36.72 [place] [facility] Respiratory rate 2025-03-30 14:53:00 18 /min [facility] Body height 2025-03-30 14:53:00 157.5 cm [facility] Body weight 2025-03-30 14:53:00 83.371 kg [facility] BMI 2025-03-30 14:53:00 33.62 kg/m2 [facility] Oxygen saturation in Arterial blood by Pulse oximetry 2025-03-30 14:53:00 96 /min [facility] Heart rate 2025-03-24 18:30:00 98 /min [facility] Oxygen saturation in Arterial blood by Pulse oximetry 2025-03-24 18:30:00 100 /min [facility] Systolic blood pressure 2025-03-24 17:30:00 115 mm[Hg] [facility] Diastolic blood pressure 2025-03-24 17:30:00 73 mm[Hg] [facility] Body temperature 2025-03-24 12:05:00 37 [place] [facility] Respiratory rate 2025-03-24 12:05:00 18 /min [facility] Body height 2025-03-24 12:05:00 157.5 cm [facility] Body weight 2025-03-24 12:05:00 84.142 kg [facility] BMI 2025-03-24 12:05:00 33.93 kg/m2 [facility] Systolic blood pressure 2025-03-24 00:53:00 112 mm[Hg] [facility] Diastolic blood pressure 2025-03-24 00:53:00 62 mm[Hg] [facility] Heart rate 2025-03-24 00:53:00 93 /min [facility] Body temperature 2025-03-24 00:53:00 36.89 [place] [facility] Respiratory rate 2025-03-24 00:53:00 16 /min [facility] Oxygen saturation in Arterial blood by Pulse oximetry 2025-03-24 00:53:00 100 /min [facility] Systolic blood pressure 2025-03-23 18:13:00 114 mm[Hg] [facility] Diastolic blood pressure 2025-03-23 18:13:00 77 mm[Hg] [facility] Heart rate 2025-03-23 18:13:00 91 /min [facility] Body temperature 2025-03-23 18:13:00 36.72 [place] [facility] Respiratory rate 2025-03-23 18:13:00 18 /min [facility] Body height 2025-03-23 18:13:00 157.5 cm [facility] Body weight 2025-03-23 18:13:00 84.006 kg [facility] BMI 2025-03-23 18:13:00 33.87 kg/m2 [facility] Oxygen saturation in Arterial blood by Pulse oximetry 2025-03-23 18:13:00 99 /min [facility] Systolic blood pressure 2025-03-09 17:39:00 114 mm[Hg] [facility] Diastolic blood pressure 2025-03-09 17:39:00 75 mm[Hg] [facility] Heart rate 2025-03-09 17:39:00 112 /[facility] 2025-03-09 17:39:00 18 /min [facility] Body height 2025-03-09 17:39:00 [facility] 2025-03-09 17:39:00 81.647 kg [facility] BMI 2025-03-09 17:39:00 32.92 kg/m2 [facility] Systolic blood pressure 2025-03-08 00:35:00 95 mm[Hg] [facility] Diastolic blood pressure 2025-03-08 00:35:00 59 mm[Hg] [facility] Heart rate 2025-03-08 00:35:00 85 /min [facility] Oxygen saturation in Arterial blood by Pulse oximetry 2025-03-08 00:35:00 99 /min [facility] Body temperature 2025-03-07 20:45:00 36.83 [place] [facility] Respiratory rate 2025-03-07 20:45:00 16 /min [facility] Body height 2025-03-07 20:22:00 157.5 cm [facility] Body weight 2025-03-07 20:22:00 82.192 kg [facility] BMI 2025-03-07 20:22:00 33.14 kg/m2 [facility] Systolic blood pressure 2025-02-23 18:10:00 101 mm[Hg] [facility] Diastolic blood pressure 2025-02-23 18:10:00 70 mm[Hg] [facility] Heart rate 2025-02-23 18:10:00 99 /min [facility] 2025-02-23 18:10:00 18 /min [facility] Body height 2025-02-23 18:10:00 157.5 cm [facility] Body weight 2025-02-23 18:10:00 81.194 kg [facility] BMI 2025-02-23 18:10:00 32.74 kg/m2 [facility] Systolic blood pressure 2025-02-09 18:27:00 99 mm[Hg] [facility] Diastolic blood pressure 2025-02-09 18:27:00 68 mm[Hg] [facility] Heart rate 2025-02-09 18:27:00 109 /min [facility] Respiratory rate 2025-02-09 18:27:00 18 /min [facility] Body height 2025-02-09 18:27:00 157.5 cm [facility] Body weight 2025-02-09 18:27:00 81.194 kg [facility] BMI 2025-02-09 18:27:00 32.74 kg/m2 [facility] Heart rate 2025-01-11 17:40:00 80 /min [facility] Oxygen saturation in Arterial blood by Pulse oximetry 2025-01-11 17:40:00 99 /min [facility] Systolic blood pressure 2025-01-11 17:31:00 110 mm[Hg] [facility] Diastolic blood pressure 2025-01-11 17:31:00 73 mm[Hg] [facility] Respiratory rate 2025-01-11 17:00:00 18 /min [facility] Body temperature 2025-01-11 16:45:00 36.72 [place] [facility] Body height 2025-01-11 16:45:00 157.5 cm [facility] Body weight 2025-01-11 16:45:00 78.926 kg [facility] BMI 2025-01-11 16:45:00 31.83 kg/m2 [facility] Systolic blood pressure 2024-12-29 18:23:00 105 mm[Hg] [facility] Diastolic blood pressure 2024-12-29 18:23:00 74 mm[Hg] [facility] Heart rate 2024-12-29 18:23:00 90 /min [facility] Respiratory rate 2024-12-29 18:23:00 18 /min [facility] Body height 2024-12-29 18:23:00 157.5 cm [facility] Body weight 2024-12-29 18:23:00 78.926 kg [facility] BMI 2024-12-29 18:23:00 31.83 kg/m2 [facility] Systolic blood pressure 2024-12-15 17:30:00 109 mm[Hg] [facility] Diastolic blood pressure 2024-12-15 17:30:00 73 mm[Hg] [facility] Heart rate 2024-12-15 17:30:00 86 /min [facility] Respiratory rate 2024-12-15 17:30:00 18 /min [facility] Body height 2024-12-15 17:30:00 157.5 cm [facility] Body weight 2024-12-15 17:30:00 75.297 kg [facility] BMI 2024-12-15 17:30:00 30.36 kg/m2 [facility] Systolic blood pressure 2024-12-02 20:15:00 104 mm[Hg] [facility] Diastolic blood pressure 2024-12-02 20:15:00 63 mm[Hg] [facility] Heart rate 2024-12-02 20:15:00 89 /min [facility] Body temperature 2024-12-02 20:15:00 36.83 [place] [facility] Oxygen saturation in Arterial blood by Pulse oximetry 2024-12-02 20:15:00 99 /min [facility] Respiratory rate 2024-12-02 19:50:00 19 /min [facility] Body height 2024-12-02 19:50:00 157.5 cm [facility] Body weight 2024-12-02 19:50:00 75.297 kg [facility] BMI 2024-12-02 19:50:00 30.36 kg/m2 [facility] Heart rate 2024-12-01 23:05:00 83 /min [facility] Oxygen saturation in Arterial blood by Pulse oximetry 2024-12-01 23:05:00 99 /min [facility] Systolic blood pressure 2024-12-01 22:00:00 106 mm[Hg] [facility] Diastolic blood pressure 2024-12-01 22:00:00 62 mm[Hg] [facility] Body temperature 2024-12-01 22:00:00 36.61 [place] [facility] Respiratory rate 2024-12-01 22:00:00 18 /min [facility] Body height 2024-12-01 21:38:00 157.5 cm [facility] Body weight 2024-12-01 21:38:00 75.66 kg [facility] BMI 2024-12-01 21:38:00 30.51 kg/m2 [facility] Systolic blood pressure 2024-10-25 18:31:00 121 mm[Hg] [facility] Diastolic blood pressure 2024-10-25 18:31:00 74 mm[Hg] [facility] Heart rate 2024-10-25 18:31:00 113 /min [facility] Body temperature 2024-10-25 18:31:00 36.56 [place] [facility] Respiratory rate 2024-10-25 18:31:00 18 /min [facility] Body weight 2024-10-25 18:31:00 75.841 kg [facility] BMI 2024-10-25 18:31:00 30.58 kg/m2 [facility] Systolic blood pressure 2024-10-09 15:38:00 103 mm[Hg] [facility] Diastolic blood pressure 2024-10-09 15:38:00 64 mm[Hg] [facility] Heart rate 2024-10-09 15:38:00 83 /min [facility] Body temperature 2024-10-09 15:38:00 36.72 [place] [facility] Body height 2024-10-09 15:38:00 157.5 cm [facility] Body weight 2024-10-09 15:38:00 75.388 kg [facility] BMI 2024-10-09 15:38:00 30.40 kg/m2 [facility] Systolic blood pressure 2023-03-23 19:45:00 112 mm[Hg] [facility] Diastolic blood pressure 2023-03-23 19:45:00 75 mm[Hg] [facility] Heart rate 2023-03-23 19:45:00 81 /min [facility] Body temperature 2023-03-23 19:45:00 36.39 [place] [facility] Respiratory rate 2023-03-23 19:45:00 18 /min [facility] Body height 2023-03-23 19:45:00 157.5 cm [facility] Body weight 2023-03-23 19:45:00 75.841 kg [facility] BMI 2023-03-23 19:45:00 30.58 kg/m2 [facility] Systolic blood pressure 2023-02-24 20:33:00 101 mm[Hg] [facility] Diastolic blood pressure 2023-02-24 20:33:00 66 mm[Hg] [facility] Heart rate 2023-02-24 20:33:00 97 /min [facility] Body temperature 2023-02-24 20:33:00 37.11 [place] [facility] Respiratory rate 2023-02-24 20:33:00 18 /min [facility] Body height 2023-02-24 20:33:00 157.5 cm [facility] Body weight 2023-02-24 20:33:00 76.885 kg [facility] BMI 2023-02-24 20:33:00 31.00 kg/m2 [facility] Systolic blood pressure 2023-02-04 13:05:00 121 mm[Hg] [facility] Diastolic blood pressure 2023-02-04 13:05:00 76 mm[Hg] [facility] Heart rate 2023-02-04 13:05:00 96 /min [facility] Body temperature 2023-02-04 13:05:00 36.33 [place] [facility] Respiratory rate 2023-02-04 13:05:00 18 /min [facility] Oxygen saturation in Arterial blood by Pulse oximetry 2023-02-04 13:05:00 100 /min [facility] Body height 2023-02-02 12:12:00 157.5 cm [facility] Body weight 2023-02-02 12:12:00 85.594 kg [facility] BMI 2023-02-02 12:12:00 34.51 kg/m2 [facility] Systolic blood pressure 2023-01-28 16:07:00 122 mm[Hg] [facility] Diastolic blood pressure 2023-01-28 16:07:00 72 mm[Hg] [facility] Heart rate 2023-01-28 16:07:00 92 /min [facility] Body temperature 2023-01-28 16:07:00 35.39 [place] [facility] Respiratory rate 2023-01-28 16:07:00 18 /min [facility] Body height 2023-01-28 16:07:00 157.5 cm [facility] Body weight 2023-01-28 16:07:00 84.46 kg [facility] BMI 2023-01-28 16:07:00 34.06 kg/m2 [facility] Systolic blood pressure 2023-01-14 16:19:00 112 mm[Hg] [facility] Diastolic blood pressure 2023-01-14 16:19:00 76 mm[Hg] [facility] Heart rate 2023-01-14 16:19:00 95 /min [facility] Body temperature 2023-01-14 16:19:00 36.33 [place] [facility] Respiratory rate 2023-01-14 16:19:00 17 /min [facility] Body height 2023-01-14 16:19:00 157.5 cm [facility] Body weight 2023-01-14 16:19:00 82.918 kg [facility] BMI 2023-01-14 16:19:00 33.43 kg/m2 [facility] Systolic blood pressure 2023-01-12 03:58:00 118 mm[Hg] [place] [facility] Diastolic blood pressure 2023-01-12 03:58:00 67 mm[Hg] [facility] Heart rate 2023-01-12 03:58:00 99 /min [facility] Body temperature 2023-01-12 03:58:00 36.72 [place] [facility] Respiratory rate 2023-01-12 03:58:00 18 /min [facility] Body height 2023-01-12 03:58:00 157.5 cm [facility] Body weight 2023-01-12 03:58:00 83.462 kg [facility] BMI 2023-01-12 03:58:00 33.65 kg/m2 [facility] Oxygen saturation in Arterial blood by Pulse oximetry 2023-01-12 03:58:00 98 /min [facility] Systolic blood pressure 2022-12-01 19:16:00 105 mm[Hg] [facility] Diastolic blood pressure 2022-12-01 19:16:00 64 mm[Hg] [facility] Heart rate 2022-12-01 19:16:00 90 /min [facility] Body temperature 2022-12-01 19:14:00 36.56 [place] [facility] Respiratory rate 2022-12-01 19:14:00 20 /min [facility] Body height 2022-12-01 19:14:00 157.5 cm [facility] Body weight 2022-12-01 19:14:00 81.103 kg [facility] BMI 2022-12-01 19:14:00 32.70 kg/m2 [facility] Systolic blood pressure 2022-11-12 19:51:00 106 mm[Hg] [facility] Diastolic blood pressure 2022-11-12 19:51:00 75 mm[Hg] [facility] Heart rate 2022-11-12 19:51:00 84 /min [facility] Body temperature 2022-11-12 19:51:00 36.56 [place] [facility] Respiratory rate 2022-11-12 19:51:00 18 /min [facility] Body height 2022-11-12 19:51:00 157.5 cm [facility] Body weight 2022-11-12 19:51:00 79.969 kg [facility] BMI 2022-11-12 19:51:00 32.25 kg/m2 [facility] Systolic blood pressure 2022-10-29 19:31:00 137 mm[Hg] [facility] Diastolic blood pressure 2022-10-29 19:31:00 78 mm[Hg] [facility] Heart rate 2022-10-29 19:31:00 113 /min [facility] Body temperature 2022-10-29 19:31:00 36.83 [place] [facility] Respiratory rate 2022-10-29 19:31:00 18 /min [facility] Body height 2022-10-29 19:31:00 157.5 cm [facility] Body weight 2022-10-29 19:31:00 80.457 kg [facility] BMI 2022-10-29 19:31:00 32.44 kg/m2 [facility] Systolic blood pressure 2022-10-22 16:00:00 116 mm[Hg] [facility] Diastolic blood pressure 2022-10-22 16:00:00 78 mm[Hg] [facility] Heart rate 2022-10-22 16:00:00 88 /min [facility] Body temperature 2022-10-22 16:00:00 36.72 [place] [facility] Respiratory rate 2022-10-22 16:00:00 18 /min [facility] Body height 2022-10-22 16:00:00 157.5 cm [facility] Body weight 2022-10-22 16:00:00 78.971 kg [facility] BMI 2022-10-22 16:00:00 31.84 kg/m2 [facility] Systolic blood pressure 2022-10-15 17:26:00 118 mm[Hg] [facility] Diastolic blood pressure 2022-10-15 17:26:00 73 mm[Hg] [facility] Heart rate 2022-10-15 17:26:00 85 /min [facility] Body temperature 2022-10-15 17:26:00 36.56 [place] [facility] Respiratory rate 2022-10-15 17:26:00 18 /min [facility] Body height 2022-10-15 17:26:00 [facility].5 [facility] 2022-10-15 17:26:00 79.606 kg [facility] BMI 2022-10-15 17:26:00 32.10 kg/m2 [facility] Systolic blood pressure 2022-10-07 16:56:00 109 mm[Hg] [facility] Diastolic blood pressure 2022-10-07 16:56:00 72 mm[Hg] [facility] Heart rate 2022-10-07 16:56:00 111 /min [facility] Body temperature 2022-10-07 16:56:00 36.39 [place] [facility] Respiratory rate 2022-10-07 16:56:00 17 /min [facility] Body height 2022-10-07 16:56:00 157.5 cm [facility] Body weight 2022-10-07 16:56:00 79.198 kg [facility] BMI 2022-10-07 16:56:00 31.93 kg/m2 [facility] Systolic blood pressure 2022-09-07 15:42:00 106 mm[Hg] [facility] Diastolic blood pressure 2022-09-07 15:42:00 71 mm[Hg] [facility] Heart rate 2022-09-07 15:42:00 92 /min [facility] Body temperature 2022-09-07 15:42:00 36.17 [place] [facility] Respiratory rate 2022-09-07 15:42:00 17 /min [facility] Body height 2022-09-07 15:42:00 157.5 cm [facility] Body weight 2022-09-07 15:42:00 78.518 kg [facility] BMI 2022-09-07 15:42:00 31.66 kg/m2 [facility] Heart rate 2022-09-04 18:50:00 105 /min [facility] Systolic blood pressure 2022-09-04 18:23:00 119 mm[Hg] [facility] Diastolic blood pressure 2022-09-04 18:23:00 76 mm[Hg] [facility] Body temperature 2022-09-04 18:23:00 36.56 [place] [facility] Respiratory rate 2022-09-04 18:23:00 18 /min [facility] Body height 2022-09-04 18:23:00 157.5 cm [facility] Body weight 2022-09-04 18:23:00 78.501 kg [facility] BMI 2022-09-04 18:23:00 31.65 kg/m2 [facility] Oxygen saturation in Arterial blood by Pulse oximetry 2022-09-04 18:23:00 98 /min [facility] Systolic blood pressure 2022-07-22 16:29:00 124 mm[Hg] [facility] Diastolic blood pressure 2022-07-22 16:29:00 88 mm[Hg] [facility] Heart rate 2022-07-22 16:29:00 88 /min [facility] Body temperature 2022-07-22 16:29:00 36.67 [place] [facility] Body weight 2022-07-22 16:29:00 78.109 kg [facility] Systolic blood pressure 2025-05-14 15:52:00 122 mm[Hg] [facility] Diastolic blood pressure 2025-05-14 15:52:00 82 mm[Hg] [facility] Heart rate 2025-05-14 15:52:00 92 /min [facility] Body temperature 2025-05-14 15:52:00 36.72 L[place] [facility] Body height 2025-05-14 15:52:00 157.5 cm [facility] Body weight 2025-05-14 15:52:00 75.297 kg [facility] BMI 2025-05-14 15:52:00 30.36 kg/m2 [facility] Respiratory rate 2025-04-05 16:30:00 16 /min [facility] Oxygen saturation in Arterial blood by Pulse oximetry 2025-04-05 16:30:00 99 /min [facility] Heart Rate 2024-10-02 13:25:00 84.00 /min Roshni en F Douglas Respiratory Rate 2024-10-02 13:25:00 Alexjeffery Cole BP Systolic 2024-10-02 13:25:00 108 mm[Hg] Step hen F Douglas BP Diastolic 2024-10-02 13:25:00 73 mm[Hg] Anatoliy phen F Douglas Weight Measured 2024-10-02 13:25:00 165.20 pounds Alex Cole Height Measured 2024-10-02 13:25:00 62.80 inches Alex Cole Body Temperature 2024-10-02 13:25:00 97.90 degrees Alexjeffery Cole BP Systolic 2024-09-29 09:06:00 Step hen Josefina Cole BP Diastolic 2024-09-29 09:06:00 Anatoliy phen F Douglas Weight Measured 2024-09-29 09:06:00 163.40 pounds Alex Cole Height Measured 2024-09-29 09:06:00 62.80 inches Alex Cole Body Temperature 2024-09-29 09:06:00 98.30 degrees Alex F Douglas Heart Rate 2024-09-29 09:06:00 85.00 /min Roshni en F Douglas Respiratory Rate 2024-09-29 09:06:00 Alexjeffery Cole BP Systolic 2023-08-05 11:48:00 116 mm[Hg] Step hen F Douglas BP Diastolic 2023-08-05 11:48:00 79 mm[Hg] Anatoliy phen F Douglas Weight Measured 2023-08-05 11:48:00 176.20 pounds Alex Cole Height Measured 2023-08-05 11:48:00 62.80 inches Alex Josefina Cole Body Temperature 2023-08-05 11:48:00 98.50 degrees Alex F Douglas Heart Rate 2023-08-05 11:48:00 86.00 /min Roshni en F Douglas Respiratory Rate 2023-08-05 11:48:00 19.00 /min Alex F Douglas BP Systolic 2022-04-20 13:49:00 115 mm[Hg] Step hen F Douglas BP Diastolic 2022-04-20 13:49:00 78 mm[Hg] Anatoliy phen F Douglas Weight Measured 2022-04-20 13:49:00 169.80 pounds Alex F Douglas Height Measured 2022-04-20 13:49:00 62.80 inches Alex F Douglas Body Temperature 2022-04-20 13:49:00 98.00 degrees Alex F Douglas Heart Rate 2022-04-20 13:49:00 78.00 /min Roshni en F [facility] Respiratory Rate 2022-04-20 13:49:00 18.00 /min Alex F Douglas BP Systolic 2022-04-06 14:21:00 152 mm[Hg] Step hen F Douglas BP Diastolic 2022-04-06 14:21:00 82 mm[Hg] Anatoliy phen F Douglas Weight Measured 2022-04-06 14:21:00 171.00 pounds Alex F Douglas Height Measured 2022-04-06 14:21:00 62.80 inches Alex F Douglas Body Temperature 2022-04-06 14:21:00 98.00 degrees Alex F Douglas Heart Rate 2022-04-06 14:21:00 89.00 /min Roshni en F Douglas Respiratory Rate 2022-04-06 14:21:00 16.00 /min Alex F Douglas BP Systolic 2022-02-10 15:23:00 122 mm[Hg] Step hen F Douglas BP Diastolic 2022-02-10 15:23:00 85 mm[Hg] Anatoliy phen F Douglas Weight Measured 2022-02-10 15:23:00 168.40 pounds Alex F Douglas Height Measured 2022-02-10 15:23:00 62.80 inches Alex F Douglas Body Temperature 2022-02-10 15:23:00 98.10 degrees Alex F Douglas Heart Rate 2022-02-10 15:23:00 95.00 /min Roshni en F Douglas Respiratory Rate 2022-02-10 15:23:00 Alex F Douglas BP Systolic 2022-02-09 11:04:00 111 mm[Hg] Step hen F Douglas BP Diastolic 2022-02-09 11:04:00 78 mm[Hg] Anatoliy phen F Douglas Weight Measured 2022-02-09 11:04:00 169.20 pounds Alex F Douglas Height Measured 2022-02-09 11:04:00 62.80 inches Alex F Douglas Body Temperature 2022-02-09 11:04:00 98.30 degrees Alex F Douglas Heart Rate 2022-02-09 11:04:00 84.00 /min Roshni en F [facility] Respiratory Rate 2022-02-09 11:04:00 Alex F Douglas BP Systolic 2021-10-07 13:04:00 Step hen F Douglas BP Diastolic 2021-10-07 13:04:00 Anatoliy phen F Douglas Weight Measured 2021-10-07 13:04:00 150.00 pounds Alex F Douglas Height Measured 2021-10-07 13:04:00 62.80 inches Alex F Douglas Body Temperature 2021-10-07 13:04:00 Alex F Douglas Heart Rate 2021-10-07 13:04:00 Roshni en F Douglas Respiratory Rate 2021-10-07 13:04:00 Alex F Douglas BP Systolic 2019-03-28 15:32:00 101 mm[Hg] Step hen F Douglas BP Diastolic 2019-03-28 15:32:00 65 mm[Hg] Anatoliy phen F Douglas Weight Measured 2019-03-28 15:32:00 150.00 pounds Alex F Douglas Height Measured 2019-03-28 15:32:00 62.80 inches Alex F Douglas Body Temperature 2019-03-28 15:32:00 97.90 degrees Alex F Douglas Heart Rate 2019-03-28 15:32:00 99.00 /min Roshni en F Douglas Respiratory Rate 2019-03-28 15:32:00 16.00 /min Alex F Douglas BP Systolic 2019-03-08 10:50:00 106 mm[Hg] Step hen F Douglas BP Diastolic 2019-03-08 10:50:00 71 mm[Hg] Anatoliy phen F Douglas Weight Measured 2019-03-08 10:50:00 146.80 pounds Alex F Douglas Height Measured 2019-03-08 10:50:00 62.80 inches Alex F Douglas Body Temperature 2019-03-08 10:50:00 98.70 degrees Alex Cole Heart Rate 2019-03-08 10:50:00 86.00 /min Roshni Cole Respiratory Rate 2019-03-08 10:50:00 16.00 /min Alex Cole Procedures Procedure Date / Time Performed Performing Clinician Source POCT TEST 2025-05-25 00:00:00 Luis Antonio Harvey [facility] CBC WITH DIFF 2025-04-05 08:29:00 Beatriz Ragsdale [facility] CBC WITH DIFF 2025-04-05 08:29:00 [facility]n [facility] CENTRAL NEURAXIAL BLOCK 2025-04-04 15:20:00 Jasmine Pastrana [facility] CENTRAL NEURAXIAL BLOCK 2025-04-04 15:20:00 Jasmine Pastrana [facility] CBC WITH DIFF 2025-04-04 12:49:00 Beatriz Ragsdale [facility] HEPATITIS B SURFACE ANTIGEN 2025-04-04 12:49:00 [facility] HB ABO GROUPING 2025-04-04 12:49:00 Beatriz Ragsdale [facility] ADC OR RADHA ONLY - RPR 2025-04-04 12:49:00 Jn [facility] HIV 1/2 AG-AB WITH REFLEX 2025-04-04 12:49:00 Jn [facility] HEPATITIS B SURFACE ANTIGEN 2025-04-04 12:49:00 Beatriz Ragsdale [facility] ADC OR RADHA ONLY - RPR 2025-04-04 12:49:00 Jn [facility] HB ABO GROUPING 2025-04-04 12:49:00 Beatriz Ragsdale [facility] CBC WITH DIFF 2025-04-04 12:49:00 [facility] HIV 1/2 AG-AB WITH REFLEX 2025-04-04 12:49:00 Jn [facility] POCT URINALYSIS W/O SPECIFIC GRAVITY 2025-03-30 14:57:00 Luis Antonio Harvey [facility] POCT URINALYSIS W/O SPECIFIC GRAVITY 2025-03-30 14:57:00 Luis Antonio Harvey [facility] SECOND AND THIRD TRIMESTER ULTRASOUND 2025-03-26 17:38:00 Luis Antonio Harvey [facility] SECOND AND THIRD TRIMESTER ULTRASOUND 2025-03-26 17:38:00 Luis Antonio Harvey [facility] DSU PRE-OP 2025-03-26 14:40:18 Doctor Unass igned, [place] [facility] DSU PRE-OP 2025-03-26 14:40:18 Doctor Unass igned, [place] [facility] NON-STRESS TEST 2025-03-24 19:19:55 Luis Antonio Harvey [facility] NON-STRESS TEST 2025-03-24 19:19:55 Luis Antonio Harvey [facility] URINALYSIS 2025-03-24 14:06:00 Luis Antonio Harvey [facility] ADC CLC OR LCC ONLY - WET PREP 2025-03-24 14:06:00 Luis Antonio Harvey [facility] URINALYSIS 2025-03-24 14:06:00 Luis Antonio Harvey [facility] ADC CLC OR LCC ONLY - WET PREP 2025-03-24 14:06:00 Luis Antonio Harvey [facility] GC & CHLAMYDIA AMPLIFIED ASSAY 2025-03-24 14:06:00 Luis Antonio Harvey [facility] URINE CULTURE 2025-03-24 14:06:00 Luis Antonio Harvey [facility] NON-STRESS TEST 2025-03-24 03:06:29 Luis Antonio Harvey [facility] NON-STRESS TEST 2025-03-24 03:06:29 Luis Antonio Harvey [facility] >14 WEEKS US LIMITED 2025-03-23 23:47:28 Luis Antonio Harvey [facility] >14 WEEKS US LIMITED 2025-03-23 23:47:28 Luis Antonio Harvey [facility] US BIOPHYSICAL PROFILE 2025-03-23 22:20:08 Luis Antonio Harvey [facility] US BIOPHYSICAL PROFILE 2025-03-23 22:20:08 Luis Antonio Harvey Mason [facility] POCT URINALYSIS W/O SPECIFIC GRAVITY 2025-03-23 18:15:00 Luis Antonio Harvey [facility] POCT URINALYSIS W/O SPECIFIC GRAVITY 2025-03-23 18:15:00 Luis Antonio Harvey [facility] NON-STRESS TEST 2025-03-09 14:44:17 HarveyLuis Antonio [facility] POCT URINALYSIS W/O SPECIFIC GRAVITY 2025-03-09 00:00:00 Luis Antonio Harvey [facility] POCT URINALYSIS W/O SPECIFIC GRAVITY 2025-03-09 00:00:00 HarveyLuis Antonio [facility] BIOPHYSICAL PROFILE 2025-03-07 22:01:48 Beatriz Ragsdale [facility] GROUP B STREPTOCOCCUS BY PCR 2025-03-07 21:08:00 Beatriz Ragsdale [facility] URINALYSIS 2025-03-07 20:57:00 Beatriz Ragsdale [facility] ADC ONLY - FERN TEST 2025-03-07 20:57:00 Truman Ragsdale [facility] URINALYSIS 2025-03-07 20:57:00 Beatriz Ragsdale [facility] URINE CULTURE 2025-03-07 20:57:00 Beatriz Ragsdale [facility] ADC ONLY - FERN TEST 2025-03-07 20:57:00 Truman Ragsdale [facility] GC & CHLAMYDIA AMPLIFIED ASSAY 2025-03-07 20:57:00 Beatriz Ragsdale [facility] POCT URINALYSIS W/O SPECIFIC GRAVITY 2025-02-23 00:00:00 Luis Antonio Harvey [facility] POCT URINALYSIS W/O SPECIFIC GRAVITY 2025-02-23 00:00:00 Wes Luis Antonio [facility] TDAP VACCINE, >11 YRS, IM 2025-02-09 18:28:26 [facility] W/O SPECIFIC GRAVITY 2025-02-09 00:00:00 WesLuis Antonio [facility] POCT URINALYSIS W/O SPECIFIC GRAVITY 2024-12-29 00:00:00 WesLuis Antonio [facility] POCT URINALYSIS W/O SPECIFIC GRAVITY 2024-12-15 00:00:00 WesLuis Antonio [facility] COMP. METABOLIC PANEL ([id number]) 2024-12-02 23:30:00 Olimpia Paul [facility] CBC WITH DIFF 2024-12-02 22:04:00 Onelia Paul [facility] URINALYSIS 2024-12-01 22:39:00 WesLuis Antonio [facility] ADC CLC OR LCC ONLY - WET PREP 2024-12-01 22:39:00 Wes Luis Antonio [facility] SECOND AND THIRD TRIMESTER ULTRASOUND 2024-11-30 17:26:00 [facility]IME[facility] ULTRASOUND 2024-11-16 20:32:00 Wes Luis Antonio [facility] SECOND AND THIRD TRIMESTER ULTRASOUND 2024-11-02 14:53:00 HarveyLuis Antonio [facility] SCANNED LAB RESULTS 2024-10-26 19:44:58 Doctor Anshul h[place], [place] [facility] ULTRASOUND 2024-10-26 19:41:13 Doc tor Unassigned, [place] [facility] POCT URINALYSIS W/O SPECIFIC GRAVITY 2024-10-25 18:36:00 Dayami Alba [facility] SCANNED LAB RESULTS 2024-10-20 18:13:05 Doctor Anshul houston, [place] [facility] <14 WEEKS US LIMITED 2024-10-09 16:20:22 Wes Luis Antonio [facility] POCT URINALYSIS W/O SPECIFIC GRAVITY 2024-10-09 00:00:00 Wes Luis Antonio [facility] POCT TEST 2023-03-23 21:34[facility]-CP 2023-03-23 20:56:00 Nadya Mace [facility] POCT URINALYSIS 2023-02-24 20:35:00 Nazia Appiah [facility] CBC WITH DIFF 2023-02-03 09:35:00 Wes [facility] CENTRAL NEURAXIAL BLOCK 2023-02-02 18:02:00 Ruddy Prado [facility] CBC WITH DIFF 2023-02-02 14:03:00 Wes [facility] HEPATITIS B SURFACE ANTIGEN 2023-02-02 14:03:00 Wes [facility] HB ABO GROUPING 2023-02-02 14:03:00 Wes [facility] RHO (D) IMMUNE GLOBULIN 2023-02-02 14:03:00 [facility] - RPR 2023-02-02 14:03:00 Wes [facility] HIV 1/2 AG-AB WITH REFLEX 2023-02-02 14:03:00 [facility]ENEFITS 2023-02-02 06:41:11 Docto r Unassigned, [place] [facility] CONSENT/REFUSAL FOR DIAGNOSIS AND TREATMENT 2023-02-02 06:40:31 Doctor Unassigned, [place] [facility] POCT URINALYSIS 2023-01-28 16:10:00 Nazia Appiah [facility] POCT URINALYSIS 2023-01-14 00:00:00 Nazia Appiah [facility] URINALYSIS 2023-01-12 04:53:00 Luis Antonio Harvey [facility] ADC ONLY - FERN TEST 2023-01-12 04:49:00 [facility] LCC ONLY - WET PREP 2023-01-12 04:44:00 Wes [facility] NOTICE OF PRIVACY PRACTICES 2023-01-12 03:33:39 Doctor Unassigned, [place] [facility] ASSIGNMENT OF BENEFITS 2023-01-12 03:30:44 Docto r Unassigned, [place] [facility] POCT URINALYSIS 2022-12-01 19:15:00 Nazia Appiah [facility] TDAP VACCINE, >11 YRS, IM 2022-12-01 19:14:56 Cindy Owens [facility] POCT URINALYSIS 2022-11-12 19:57:00 Nazia Appiah [facility] POCT URINALYSIS 2022-10-29 19:35:00 Nazia Appiah [facility] CREATININE U 24 HR 2022-10-20 14:50:00 Beba Owens [facility] PROTEIN QUANT U/24H 2022-10-20 14:50:00 Kelly Owens [facility] SECOND AND THIRD TRIMESTER ULTRASOUND 2022-10-15 20:38:00 Nazia Appiah [facility] URINE CULTURE 2022-10-15 18:21:00 Karen Do [facility] POCT URINALYSIS 2022-10-15 17:26:00 Nazia Appiah [facility] FREE T4 2022-10-07 17:59:00 Cindy Owens U [facility] THYROID STIMULATING HORMONE 2022-10-07 17:59:00 Cindy Owens [facility] FREE T3 2022-10-07 17:59:00 Cindy Owens U [facility] POCT URINALYSIS 2022-10-07 00:00:00 Nazia Appiah [facility] POCT URINALYSIS 2022-09-07 00:00:00 Nazia Appiah [facility] FREE T4 2022-09-04 19:18:00 Kaley Vogt [facility] THYROID STIMULATING HORMONE 2022-09-04 19:18:00 Kaley Vogt [facility] CBC WITH DIFF 2022-09-04 19:18:00 [facility]22-09-04 19:18:00 Kaley Vogt [facility] FREE T3 2022-09-04 19:18:00 AngelinaKaley rodríguez [facility] QUAD SCRN 2022-09-04 19:18:00 TorieKaley [facility] POCT URINALYSIS 2022-09-04 18:25:00 Nazia Appiah [facility] POCT URINALYSIS 2022-07-22 16:40:00 Nazia Appiah [facility] 3 HR GLUCOSE TOLERANCE TEST 2022-07-01 16:31:00 Nazia Appiah [facility] 2 HR GLUCOSE TOLERANCE TEST 2022-07-01 15:31:00 Nazia Appiah [facility] 1 HR GLUCOSE TOLERANCE TEST 2022-07-01 14:31:00 Nazia Appiah [facility] GLUCOSE FASTING 2022-07-01 13:32:00 Nazia Appiah [facility] 3 HR GLUCOSE TOLERANCE PANEL 2022-07-01 13:32:00 Nazia Appiah [facility] Encounters Start Date/Time End Date/Time Encounter Type Admission Type Attending [facility] Care Facility Care Department Encounter ID Source 2025-03-07 19:59:03 Outpatient X [facility] [id number] [facility] 2025-01-11 12:00:47 Outpatient X [facility] [id number] [facility] 2024-12-02 18:35:41 Outpatient X [facility] [id number] [facility] 2023-01-12 01:03:31 Outpatient P [facility] [id number] [facility] 2021-09-15 14:15:47 Outpatient [facility] [id number] [facility] 2025-05-25 09:45:00 2025-05-25 09:49:04 Routine Visit Luis Antonio Nichols [facility] 1.2.840.114 350.1.13.10 4.2.7.2.686 [id number] [facility] 2025-05-14 10:45:00 2025-05-14 11:00:00 Routine Visit Luis Antonio Nichols 1.2.840.1 99990.1.1 3.104.2.7 .3.743013 .8 [id number] [facility] 2025-05-14 00:00:00 2025-05-14 00:00:00 Travel 1.2.840.1 04905.1.1 3.104.2.7 .3.094344 .8 1.2.840.114 350.1.13.10 4.2.7.3.698 084.8 [id number] [facility] 2025-03-08 00:00:00 2025-04-14 18:26:19 Patient Secure Beatriz Vasquez 1.2.840.1 29668.1.1 3.104.2.7 .3.374474 .8 [id number] [facility] 2025-04-06 11:00:00 2025-04-06 11:00:00 Outpatient LUIS ANTONIO NICHOLS [facility] [id number] [facility] 2025-04-04 06:35:00 2025-04-05 12:40:00 Hospital Encounter P Gabi Fonseca Wakili S Lam, Vien Cam 1.2840.1 99138.1.1 3.104.2.7 .3.470838 .8 [id number] [facility] 2025-04-04 09:00:00 2025-04-04 11:30:00 Anesthesia Event Reese Pastrana R 1.2.840.1 58371.1.1 3.104.2.7 .3.881231 .8 [id number] [facility] 2025-04-04 00:00:00 2025-04-04 00:00:00 Travel 1.2.840.1 06704.1.1 3.104.2.7 .3.752499 .8 1.2.840.114 350.1.13.10 4.2.7.3.698 084.8 [id number] [facility] 2025-03-30 09:45:00 2025-03-30 10:24:26 Routine Visit R Luis Antonio Harvey 1.2.840.1 95618.1.1 3.104.2.7 .3.468740 .8 [id number] [facility] 2025-03-30 09:45:00 2025-03-30 09:45:00 Outpatient R LUIS ANTONIO HARVEY [facility] [id number] [facility] 2025-03-30 00:00:00 2025-03-30 00:00:00 Travel 1.2.840.1 67852.1.1 3.104.2.7 .3.354980 .8 1.2.840.114 350.1.13.10 4.2.7.3.698 084.8 [id number] [facility] 2025-03-26 00:00:00 2025-03-27 02:05:05 Orders Only Doctor Unassigned, [place] 1.2.840.1 60451.1.1 3.104.2.7 .3.104080 .8 [id number] [facility] 2025-03-26 00:00:00 2025-03-26 15:19:25 Case Management Luis Antonio Harvey 1.2.840.1 42374.1.1 3.104.2.7 .3.044564 .8 [id number] [facility] 2025-03-26 12:00:00 2025-03-26 12:17:32 Mechanical Systems Designer Visit Devan Martinez 1.2.840.1 39801.1.1 3.104.2.7 .3.617332 .8 [id number] [facility] 2025-03-26 12:00:00 2025-03-26 12:00:00 Outpatient P DEVAN RENDON [facility] [id number] [facility] 2025-03-26 00:00:00 2025-03-26 00:00:00 Travel 1.2.840.1 89469.1.1 3.104.2.7 .3.991607 .8 1.2.840.114 350.1.13.10 4.2.7.3.698 084.8 [id number] [facility] 2025-03-24 14:20:00 2025-03-24 15:20:00 Ancillary Procedure Luis Antonio Harvey 1.2.840.1 73900.1.1 3.104.2.7 .3.677166 .8 [id number] [facility] 2025-03-24 07:12:00 2025-03-24 14:20:00 Outpatient P LUIS ANTONIO HARVEY [facility] [id number] [facility] 2025-03-24 07:12:00 2025-03-24 14:20:00 Hospital Encounter P Rachelle Mast [facility] 1.2.840.1 35547.1.1 3.104.2.7 .3.471755 .8 [id number] [facility] 2025-03-24 00:00:00 2025-03-24 06:13:22 Nurse Triage Fani Meza 1.2.840.1 02210.1.1 3.104.2.7 .3.372890 .8 [id number] [facility] 2025-03-24 00:00:00 2025-03-24 00:00:00 Travel 1.2.840.1 33685.1.1 3.104.2.7 .3.140684 .8 1.2.840.114 350.1.13.10 4.2.7.3.698 084.8 [id number] [facility] 2025-03-23 22:10:00 2025-03-23 23:10:00 Ancillary Procedure Luis Antonio Harvey Mason 1.2.840.1 46712.1.1 3.104.2.7 .3.629900 .8 [id number] [facility] 2025-03-23 00:00:00 2025-03-23 22:12:34 Case Management HarveyLuis Antonio Mason 1.2.840.1 83598.1.1 3.104.2.7 .3.257613 .8 [id number] [facility] 2025-03-23 14:57:00 2025-03-23 22:03:00 Outpatient P WESCLAULUIS ANTONIO GAN [facility] [id number] [facility] 2025-03-23 14:57:00 2025-03-23 22:03:00 Hospital Encounter WesClauraúl Cuevas 1.2.840.1 00417.1.1 3.104.2.7 .3.427774 .8 [id number] [facility] 2025-03-23 18:50:00 2025-03-23 19:50:00 Ancillary Procedure Luis Antonio Harvey Mason 1.2.840.1 53914.1.1 3.104.2.7 .3.687823 .8 [id number] [facility] 2025-03-23 12:45:00 2025-03-23 14:18:27 Outpatient R HARVEYCLAULUIS ANTONIO GAN [facility] [id number] [facility] 2025-03-23 12:45:00 2025-03-23 14:18:27 Routine Visit WesClauraúl Cuevas 1.2.840.1 82655.1.1 3.104.2.7 .3.516351 .8 [id number] [facility] 2025-03-23 00:00:00 2025-03-23 00:00:00 Travel 1.2.840.1 44186.1.1 3.104.2.7 .3.447114 .8 1.2.840.114 350.1.13.10 4.2.7.3.698 084.8 [id number] [facility] 2025-03-09 12:45:00 2025-03-09 12:48:53 Outpatient R LUIS ANTONIO HARVEY [facility] [id number] [facility] 2025-03-09 12:45:00 2025-03-09 12:48:53 Routine Visit Luis Antonio Harvey 1.2.840.1 83286.1.1 3.104.2.7 .3.408031 .8 [id number] [facility] 2025-03-09 09:45:00 2025-03-09 10:45:00 Ancillary Procedure Luis Antonio Harvey 1.2.840.1 84183.1.1 3.104.2.7 .3.493135 .8 [id number] [facility] 2025-03-09 00:00:00 2025-03-09 00:00:00 Travel 1.2.840.1 24469.1.1 3.104.2.7 .3.190514 .8 1.2.840.114 350.1.13.10 4.2.7.3.698 084.8 [id number] [facility] 2025-03-07 15:24:00 2025-03-07 19:52:00 Outpatient X LUIS ANTONIO HARVEY LUIS ANTONIO [facility] [id number] [facility] 2025-03-07 15:24:00 2025-03-07 19:52:00 Emergency Eze, K Flora Luis Antonio Harvey 1.2.840.1 63986.1.1 3.104.2.7 .3.783691 .8 [id number] [facility] 2025-03-07 00:00:00 2025-03-07 14:35:35 Telephone Luis Antonio Harvey 1.2.840.1 70033.1.1 3.104.2.7 .3.051793 .8 [id number] [facility] 2025-03-07 00:00:00 2025-03-07 00:00:00 Travel 1.2.840.1 14053.1.1 3.104.2.7 .3.830666 .8 1.2.840.114 350.1.13.10 4.2.7.3.698 084.8 [id number] [facility] 2025-02-23 12:45:00 2025-02-23 13:16:06 Outpatient R LUIS ANTONIO HARVEY [facility] [id number] [facility] 2025-02-23 12:45:00 2025-02-23 13:16:06 Routine Visit Luis Antonio Harvey 1.2.840.1 39970.1.1 3.104.2.7 .3.970241 .8 [id number] [facility] 2025-02-23 00:00:00 2025-02-23 00:00:00 Travel 1.2.840.1 73469.1.1 3.104.2.7 .3.192976 .8 1.2.840.114 350.1.13.10 4.2.7.3.698 084.8 [id number] [facility] 2025-02-09 13:15:00 2025-02-09 13:58:10 Outpatient R LUIS ANTONIO HARVEY [facility] [id number] [facility] 2025-02-09 13:15:00 2025-02-09 13:58:10 Routine Visit Luis Antonio Harvey [facility] 1.2.840.114 350.1.13.10 4.2.7.2.686 [id number] 134 [id number] [facility] 2025-01-26 12:15:00 2025-01-26 12:44:53 Outpatient R LUIS ANTONIO HARVEY [facility] [id number] [facility] 2025-01-19 11:30:00 2025-01-19 11:30:00 Outpatient R LUIS ANTONIO HARVEY [facility] [id number] [facility] 2024-12-07 00:00:00 2025-01-13 18:20:22 Patient Secure Msg Doctor Unassigned, [place] Doctor Unassigned, Red Dog Mine [facility] 1.84.114 350.1.13.10 4.2.7.2.686 [id number] 134 [id number] [facility] 2025-01-11 10:35:00 2025-01-11 11:55:00 Outpatient X [facility] [id number] [facility] 2025-01-11 10:35:00 2025-01-11 11:55:00 Emergency HarveyLuis Antonio [facility] 1.84.114 350.1.13.10 4.2.7.2.686 [id number] [id number] [facility] 2025-01-11 00:00:00 2025-01-11 09:52:47 Telephone Wes Luis Antonio Mason [facility] 1..114 350.1.13.10 4.2.7.2.686 [id number] 134 [id number] [facility] 2025-01-02 10:45:00 2025-01-02 11:00:00 Mechanical Systems Designer Visit 2, Adc Lab Rustam Hamlin 2, Adc Lab [facility] 1.84.114 350.1.13.10 4.2.7.2.686 [id number] [facility] 2025-01-02 10:45:00 2025-01-02 10:45:00 Outpatient RUSTAM PATTON [facility] [id number] [facility] 2024-10-20 00:00:00 2024-12-30 06:31:16 Orders Only Doctor Unassigned, [place] Doctor Unassigned, [place] Mine [facility] 1.2.840.114 350.1.13.10 4.2.7.2.686 [id number] [id number] [facility] 2024-10-26 00:00:00 2024-12-30 06:29:39 Orders Only Doctor Unassigned, [place] Doctor Unassigned, [place] Dog Mine [facility] 1.2.840.114 350.1.13.10 4.2.7.2.686 [id number] [facility] 2024-10-26 00:00:00 2024-12-30 06:29:28 Orders Only Doctor Unassigned, [place] Doctor Unassigned, [place] Dog Mine [facility] 1.2.840.114 350.1.13.10 4.2.7.2.686 [id number] [id number] [facility] 2021-03-05 00:00:00 2024-12-30 02:56:10 Orders Only Bello, Domitila A Bello, Domitila A [facility] OPTIMIZATION CONSULTANT [facility] 1.2.840.114 350.1.13.10 4.2.7.2.686 [id number] [facility] 2024-12-29 12:30:00 2024-12-29 12:32:53 Outpatient R LUIS ANTONIO HARVEY [facility] [id number] [facility] 2024-12-29 12:30:00 2024-12-29 12:32:53 Routine Visit Luis Antonio Harvey [facility] 1.2.840.114 350.1.13.10 4.2.7.2.686 [id number] 134 [id number] [facility] 2024-12-28 10:45:00 2024-12-28 10:45:00 Outpatient P RUSTAM HAMLIN [facility] [id number] [facility] 2024-12-15 00:00:00 2024-12-15 13:56:31 Telephone Luis Antonio Harvey [facility] 1.840.114 350.1.13.10 4.2.7.2.686 [id number] 134 [id number] [facility] 2024-12-15 11:30:00 2024-12-15 11:53:47 Outpatient R LUIS ANTONIO HARVEY LUIS ANTONIO [facility] [id number] [facility] 2024-12-15 11:30:00 2024-12-15 11:53:47 Routine Visit Luis Antonio Harvey [facility] 1.840.114 350.1.13.10 4.2.7.2.686 [id number] 134 [id number] [facility] 2024-12-14 11:30:00 2024-12-14 11:30:00 Outpatient P CHARLY HANSEN [facility] [id number] [facility] 2024-11-03 00:00:00 2024-12-09 18:18:21 Patient Secure Msg Doctor Unassigned, [place] Doctor Unassigned, Red Dog Mine [facility] 1..840.114 350.1.13.10 4.2.7.2.686 [id number] 134 [id number] [facility] 2024-12-05 00:00:00 2024-12-05 19:06:53 Case Management Luis Antonio Harvey [facility] 1..840.114 350.1.13.10 4.2.7.2.686 [id number] 134 [id number] [facility] 2024-12-05 13:00:00 2024-12-05 13:00:00 Outpatient R LUIS ANTONIO HARVEY [facility] [id number] [facility] 2024-12-02 13:53:00 2024-12-02 18:35:00 Outpatient X DOLLY Bond, OLIMPIA DAMICOI S, OLIMPIA [facility] [id number] [facility] 2024-12-02 13:53:00 2024-12-02 18:35:00 Emergency Edmundo Alfaro Marisol [facility] 1.114 350.1.13.10 4.2.7.2.686 [id number] [facility] 2024-12-02 00:00:00 2024-12-02 13:20:44 Nurse Triage Karen Bradford Teresa D [facility] .114 350.1.13.10 4.2.7.2.686 [id number] [facility] 2024-12-01 15:41:00 2024-12-01 18:20:00 Outpatient X LUIS ANTONIO HARVEY VIEN [facility] [id number] [facility] 2024-12-01 15:41:00 2024-12-01 18:20:00 Emergency Luis Antonio Harvey [facility] .114 350.1.13.10 4.2.7.2.686 [id number] 083 [id number] [facility] 2024-11-30 10:30:00 2024-11-30 11:22:53 Outpatient R GEOFF PERKINS SANGEETA JAIN, SANGEETA [facility] [id number] [facility] 2024-11-30 10:30:00 2024-11-30 11:22:53 Mechanical Systems Designer Visit Ultrasound, MimiGeoff Cheng [facility] OPTIMIZATION CONSULTANT [facility] MAT[facility] & CHILD HE[facility] 1.114 350.1.13.10 4.2.7.2.686 [id number] [facility] 2024-11-16 14:00:00 2024-11-16 14:31:40 Outpatient P RUSTAM HAMLIN [facility] [id number] [facility] 2024-11-16 14:00:00 2024-11-16 14:31:40 Mechanical Systems Designer Visit Ultrasound, Rosalia Rustam Hamlin George [facility] OPTIMIZATION CONSULTANT [facility]ILD HE[facility] 1.840.114 350.1.13.10 4.2.7.2.686 [id number] [facility] 2024-11-03 11:00:00 2024-11-03 11:00:00 Outpatient R DAYAMI ALBA [facility] [id number] [facility] 2024-11-02 08:30:00 2024-11-02 08:48:11 Outpatient P GEOFF PERKINS, ANTONELLA CALDERÓNEETA [facility] [id number] [facility] 2024-11-02 08:30:00 2024-11-02 08:48:11 Mechanical Systems Designer [facility] & [facility]ILD [facility] .840.114 350.1.13.10 4.2.7.2.686 [id number] [facility] 2024-10-25 12:30:00 2024-10-25 12:53:30 Outpatient R DAYAMI ALBA [facility] [id number] [facility] 2024-10-25 12:30:00 2024-10-25 12:53:30 Routine Visit Dayami Alba [facility] .840.114 350.1.13.10 4.2.7.2.686 [id number] 134 [id number] [facility] 2024-10-17 00:00:00 2024-10-17 15:25:33 Patient Secure Msg Doctor Unassigned, [place] Doctor Unassigned, Red Dog Mine [facility] 1.2.840.114 350.1.13.10 4.2.7.2.686 [id number] 134 [id number] [facility] 2024-10-17 00:00:00 2024-10-17 11:52:03 Telephone Luis Antonio Harvey [facility] 1.2.840.114 350.1.13.10 4.2.7.2.686 [id number] 134 [id number] [facility] 2024-10-17 00:00:00 2024-10-17 09:37:37 Telephone Luis Antonio Harvey [facility] 1.2.840.114 350.1.13.10 4.2.7.2.686 [id number] 134 [id number] [facility] 2024-10-16 00:00:00 2024-10-17 09:12:00 Telephone Luis Antonio Harvey [facility] 1.2.840.114 350.1.13.10 4.2.7.2.686 [id number] 134 [id number] [facility] 2024-10-09 11:30:00 2024-10-09 11:45:00 Mechanical Systems Designer Visit 2, Adc Lab Luis Antonio Harvey 2, Adc Lab [facility] 1.2.840.114 350.1.13.10 4.2.7.2.686 [id number] [facility] 2024-10-09 09:30:00 2024-10-09 10:23:55 Outpatient R LUIS ANTONIO HARVEY [facility] [id number] [facility] 2024-10-09 09:30:00 2024-10-09 10:23:55 Initial Visit Luis Antonio Harvey [facility] 1..840.114 350.1.13.10 4.2.7.2.686 [id number] 134 [id number] [facility] 2024-10-06 00:00:00 2024-10-06 08:13:59 Telephone Luis Antonio Harvey [facility] 1.2.840.114 350.1.13.10 4.2.7.2.686 [id number] 134 [id number] [facility] 2024-10-02 13:20:29 2024-10-02 13:20:29 Outpatient [facility] [id number] Alex Cole 2024-10-02 00:00:00 2024-10-02 00:00:00 Outpatient Visit [facility] [id number] Alex Cole 2024-09-29 08:50:54 2024-09-29 08:50:54 Outpatient [facility] [id number] Alex Rocha Trinidad 2023-08-05 13:04:11 2023-08-05 13:04:11 Outpatient [facility] [id number] Alex Rocha Douglas 2023-06-22 09:15:00 2023-06-22 09:15:00 Outpatient R LA JEAN [facility] [id number] [facility] 2023-03-23 14:30:00 2023-03-23 15:28:53 Outpatient R [facility] [id number] [facility] 2023-03-23 14:30:00 2023-03-23 15:28:53 Office Visit La Jean [facility] OPTIMIZATION CONSULTANT [facility] 1..840.114 350.1.13.10 4.2.7.2.686 [id number] [facility] 2023-03-02 14:00:00 2023-03-02 14:00:00 Outpatient R [facility] [id number] [facility] 2023-02-24 15:15:00 2023-02-24 15:44:52 Outpatient R [facility] [id number] [facility] 2023-02-24 15:15:00 2023-02-24 15:44:52 Routine Visit La Jean Zeenat [facility] OPTIMIZATION CONSULTANT [facility] MAT[facility]NAL & CHILD HEALTH [facility] 1.2.840.114 350.1.13.10 4.2.7.2.686 [id number] [facility] 2023-02-04 11:00:00 2023-02-04 11:00:00 Outpatient R [facility] [id number] [facility] 2023-02-02 01:49:00 2023-02-04 10:55:00 Inpatient P LUIS ANTONIO HARVEY [facility] [id number] [facility] 2023-02-02 01:49:00 2023-02-04 10:55:00 Hospital Encounter Luis Antonio Harvey Mason [facility] 1.2.840.114 350.1.13.10 4.2.7.2.686 [id number] [facility] 2023-02-02 13:02:00 2023-02-02 20:12:00 Anesthesia Event Ruddy Pappas [facility] 1.2.840.114 350.1.13.10 4.2.7.2.686 [id number] [facility] 2023-02-02 10:49:18 2023-02-02 10:49:18 Anesthesia Event Williams Peñaloza [facility] 1.2.840.114 350.1.13.10 4.2.7.2.686 [id number] [facility] 2023-02-02 00:00:00 2023-02-02 00:00:00 Nurse Triage Adelaide Florescy [facility] 1.840.114 350.1.13.10 4.2.7.2.686 [id number] [facility] 2023-02-02 00:00:00 2023-02-02 00:00:00 Orders Only Doctor Unassigned, [place] [facility] 1.840.114 350.1.13.10 4.2.7.2.686 [id number] [facility] 2023-01-28 11:00:00 2023-01-28 11:53:44 Outpatient R [facility] [id number] [facility] 2023-01-28 11:00:00 2023-01-28 11:53:44 Routine Visit La Jean [facility] OPTIMIZATION CONSULTANT [facility] 1..840.114 350.1.13.10 4.2.7.2.686 [id number] [facility] 2023-01-22 13:15:00 2023-01-22 13:15:00 Outpatient R [facility] [id number] [facility] 2023-01-21 15:15:00 2023-01-21 15:15:00 Outpatient R [facility] [id number] [facility] 2023-01-19 08:15:00 2023-01-19 08:31:59 Mechanical Systems Designer Visit Lab, Ang-Rmchp La Jean [facility] OPTIMIZATION CONSULTANT [facility] & CHILD [facility] 1..840.114 350.1.13.10 4.2.7.2.686 [id number] [facility] 2023-01-19 08:15:00 2023-01-19 08:15:00 Outpatient R [facility] [id number] [facility] 2023-01-18 08:00:00 2023-01-18 08:41:05 Mechanical Systems Designer Visit Lab, La Rader [facility] OPTIMIZATION CONSULTANT [facility] 1.840.114 350.1.13.10 4.2.7.2.686 [id number] [facility] 2023-01-18 08:00:00 2023-01-18 08:00:00 Outpatient [facility] [id number] [facility] 2023-01-14 10:15:00 2023-01-14 10:50:28 Outpatient KAREN [facility] [id number] [facility] 2023-01-14 10:15:00 2023-01-14 10:50:28 Routine Visit Risk, Zahidachp-N p/High Karen Do [facility] OPTIMIZATION CONSULTANT [facility] & CHILD [facility] 1.0.114 350.1.13.10 4.2.7.2.686 [id number] [facility] 2023-01-11 21:54:00 2023-01-12 00:52:00 Outpatient P LUIS ANTONIO HARVEY [facility] [id number] [facility] 2023-01-11 21:54:00 2023-01-12 00:52:00 Hospital Encounter Luis Antonio Harvey [facility] 1.840.114 350.1.13.10 4.2.7.2.686 [id number] [id number] [facility] 2023-01-11 00:00:00 2023-01-11 00:00:00 Orders Only Doctor Unassigned, [place] [facility] 1.840.114 350.1.13.10 4.2.7.2.686 [id number] [facility] 2022-12-17 13:00:00 2022-12-17 13:00:00 Outpatient KAREN HAYES [facility] [id number] [facility] 2022-12-16 07:45:00 2022-12-16 07:45:00 Outpatient LA AGUILERA [facility] [id number] [facility] 2022-12-09 00:00:00 2022-12-09 00:00:00 Case Management Karen Do [facility] OPTIMIZATION CONSULTANT [facility] MATERNAL & CHILD [facility]ALTH [facility] .2.840.114 350.1.13.10 4.2.7.2.686 [id number] [facility] 2022-12-01 12:45:00 2022-12-01 13:44:33 Outpatient CINDY NEWTON [facility] [id number] [facility] 2022-12-01 12:45:00 2022-12-01 13:44:33 Routine Visit Provider, Shayan-RmchCindy Velez [facility] OPTIMIZATION CONSULTANT [facility] MATERNAL & CHILD [facility] .2.840.114 350.1.13.10 4.2.7.2.686 [id number] 107 [id number] [facility] 2022-11-26 13:30:00 2022-11-26 13:30:00 Outpatient KAREN HAYES [facility] [id number] [facility] 2022-11-20 10:30:00 2022-11-20 10:30:00 Outpatient LA AGUILERA [facility] [id number] [facility] 2022-11-12 13:45:00 2022-11-12 14:23:15 Outpatient KAREN HAYES [facility] [id number] [facility] 2022-11-12 13:45:00 2022-11-12 14:23:15 Routine Visit Risk, Ang-Rmchp-N p/High Karen Do [facility] OPTIMIZATION CONSULTANT [facility] & CHILD [facility] 1.2840.114 350.1.13.10 4.2.7.2.686 [id number] 107 [id number] [facility] 2022-11-02 14:30:00 2022-11-02 15:45:00 Mechanical Systems Designer Visit Ultrasound, Abby Dunham [facility] OPTIMIZATION CONSULTANT [facility] & CHILD [facility] 1.2840.114 350.1.13.10 4.2.7.2.686 [id number] [facility] 2022-11-02 14:30:00 2022-11-02 14:30:00 Outpatient P ABBY ALY [facility] [id number] [facility] 2022-10-29 14:00:00 2022-10-29 14:30:00 Mechanical Systems Designer Visit Ultrasound, Karen Bello Corey [facility] OPTIMIZATION CONSULTANT [facility] & CHILD [facility] 1.84.114 350.1.13.10 4.2.7.2.686 [id number] [facility] 2022-10-29 13:30:00 2022-10-29 14:17:44 Outpatient R KAREN DO [facility] [id number] [facility] 2022-10-29 13:30:00 2022-10-29 14:17:44 Routine Visit Risk, MimiRmchp-N p/High Karen Do [facility] OPTIMIZATION CONSULTANT [facility] & CHILD [facility] 1.284.114 350.1.13.10 4.2.7.2.686 [id number] 107 [id number] [facility] 2022-10-22 09:45:00 2022-10-22 10:15:00 Mechanical Systems Designer Visit Ultrasound, Karen Bello Sangeeta [facility] OPTIMIZATION CONSULTANT [facility] & CHILD [facility] 1.2.840.114 350.1.13.10 4.2.7.2.686 [id number] [facility] 2022-10-22 09:45:00 2022-10-22 09:45:00 Outpatient P GEOFF PERKINS [facility] [id number] [facility] 2022-10-22 09:00:00 2022-10-22 09:28:46 Nurse Visit Visit, Zahidajoao Nurse La Jean [facility] OPTIMIZATION CONSULTANT [facility] CHILD [facility] 1.2.840.114 350.1.13.10 4.2.7.2.686 [id number] 107 [id number] [facility] 2022-10-22 00:00:00 2022-10-22 00:00:00 Telephone La Jean [facility] OPTIMIZATION CONSULTANT [facility] CHILD [facility] 1.2.840.114 350.1.13.10 4.2.7.2.686 [id number] 107 [id number] [facility] 2022-10-20 08:15:00 2022-10-20 08:37:24 Mechanical Systems Designer Visit Lab, La Rader [facility] OPTIMIZATION CONSULTANT [facility] 1.2.840.114 350.1.13.10 4.2.7.2.686 [id number] 107 [id number] [facility] 2022-10-20 08:15:00 2022-10-20 08:15:00 Outpatient R LA JEAN [facility] [id number] [facility] 2022-10-16 13:00:00 2022-10-16 13:00:00 Outpatient P [facility] [id number] [facility] 2022-10-15 14:30:00 2022-10-15 14:51:25 Mechanical Systems Designer Visit Ultrasound, Karne Bello Corey [facility] OPTIMIZATION CONSULTANT [facility] MATERNAL & CHILD [facility] 1.2.840.114 350.1.13.10 4.2.7.2.686 [id number] [facility] 2022-10-15 11:00:00 2022-10-15 12:00:12 Outpatient KAREN HAYES [facility] [id number] [facility] 2022-10-15 11:00:00 2022-10-15 12:00:12 Routine Visit Risk, [place] p/High Karen Do [facility] OPTIMIZATION CONSULTANT [facility] & CHILD [facility] 1.2.840.114 350.1.13.10 4.2.7.2.686 [id number] 107 [id number] [facility] 2022-10-11 00:00:00 2022-10-11 00:00:00 Patient Secure Cindy Russell [facility] OPTIMIZATION CONSULTANT [facility] & CHILD [facility] 1.2.840.114 350.1.13.10 4.2.7.2.686 [id number] 107 [id number] [facility] 2022-10-10 00:00:00 2022-10-10 00:00:00 Nurse Triage [facility] 1.2.840.114 350.1.13.10 4.2.7.2.686 [id number] [facility] 2022-10-07 11:00:00 2022-10-07 12:00:09 Outpatient CINDY NEWTON [facility] [id number] [facility] 2022-10-07 11:00:00 2022-10-07 12:00:09 Routine Visit Provider, Cindy Ro [facility] OPTIMIZATION CONSULTANT [facility] & CHILD [facility] 1.2.840.114 350.1.13.10 4.2.7.2.686 [id number] 107 [id number] [facility] 2022-10-05 11:00:00 2022-10-05 11:00:00 Outpatient R LA JEAN [facility] [id number] [facility] 2022-09-30 00:00:00 2022-09-30 00:00:00 Telephone Dl Lemus [facility] 1..840.114 350.1.13.10 4.2.7.2.686 [id number] [facility] 2022-09-21 00:00:00 2022-09-21 00:00:00 Telephone Faculty, Shayan Brasher [facility] OPTIMIZATION CONSULTANT [facility] MATERNAL & CHILD [facility] 1..840.114 350.1.13.10 4.2.7.2.686 [id number] 107 [id number] [facility] 2022-09-10 00:00:00 2022-09-10 00:00:00 Letter (Out) Nazia Appiah [facility] OPTIMIZATION CONSULTANT [facility] & CHILD [facility] 1..840.114 350.1.13.10 4.2.7.2.686 [id number] 107 [id number] [facility] 2022-09-07 10:30:00 2022-09-07 11:16:52 Outpatient R GEOFF PERKINS [facility] [id number] [facility] 2022-09-07 10:30:00 2022-09-07 11:16:52 Office Visit Faculty, Shayan Brasher [facility] & CHILD [facility] 1.840.114 350.1.13.10 4.2.7.2.686 [id number] 107 [id number] [facility] 2022-09-04 12:45:00 2022-09-04 14:16:38 Outpatient R KALEY VOGT SARAH [facility] [id number] [facility] 2022-09-04 12:45:00 2022-09-04 14:16:38 Routine Visit Provider, Kaley Stanley [facility] OPTIMIZATION CONSULTANT [facility] MATERNAL & CHILD [facility] 1..840.114 350.1.13.10 4.2.7.2.686 [id number] 107 [id number] [facility] 2022-08-17 11:00:00 2022-08-17 11:00:00 Outpatient R KALEY VOGT SARAH [facility] [id number] [facility] 2022-07-27 11:00:00 2022-07-27 11:30:00 Mechanical Systems Designer Visit Ultrasound, Airam Cohen [facility] OPTIMIZATION CONSULTANT [facility] & CHILD [facility] 1..840.114 350.1.13.10 4.2.7.2.686 [id number] [facility] 2022-07-27 11:00:00 2022-07-27 11:00:00 Outpatient P AIRAM CALLAWAY [facility] [id number] [facility] 2022-07-27 11:00:00 2022-07-27 11:00:00 Outpatient P [facility] [id number] [facility] 2022-07-27 00:00:00 2022-07-27 00:00:00 Abstract Nazia Appiah [facility] OPTIMIZATION CONSULTANT [facility] & CHILD [facility] 1..840.114 350.1.13.10 4.2.7.2.686 [id number] 107 [id number] [facility] 2022-07-22 11:00:00 2022-07-22 11:37:36 Outpatient R NAZIA APPIAH [facility] [id number] [facility] 2022-07-22 11:00:00 2022-07-22 11:37:36 Routine Visit Nazia Appiah [facility] OPTIMIZATION CONSULTANT [facility] MATERNAL & CHILD [facility] 1.2.840.114 350.1.13.10 4.2.7.2.686 [id number] 107 [id number] [facility] 2022-07-06 14:00:00 2022-07-06 14:30:00 Telemedici ne Visit Faculty, Rustam Olivares [facility] OPTIMIZATION CONSULTANT [facility] & CHILD [facility] 1.2.840.114 350.1.13.10 4.2.7.2.686 [id number] 107 [id number] [facility] 2022-07-06 14:00:00 2022-07-06 14:00:00 Outpatient R YAKELINMAIRAAlberto [facility] [id number] [facility] 2022-07-01 10:30:00 2022-07-01 10:30:00 Outpatient R NAZIA APPIAH [facility] [id number] [facility] 2022-07-01 10:30:00 2022-07-01 10:30:00 Mechanical Systems Designer Visit Lab, Nazia Carlos [facility] OPTIMIZATION CONSULTANT [facility] & CHILD [facility] 1.2.840.114 350.1.13.10 4.2.7.2.686 [id number] 107 [id number] [facility] 2022-06-25 00:00:00 2022-06-25 00:00:00 Telephone Nazia Appiah [facility] OPTIMIZATION CONSULTANT [facility] & CHILD [facility] 1.2.840.114 350.1.13.10 4.2.7.2.686 [id number] 107 [id number] [facility] 2022-06-24 10:00:00 2022-06-24 11:08:47 Outpatient R NAZIA APPIAH [facility] [id number] [facility] 2022-06-24 10:00:00 2022-06-24 11:08:47 Initial Visit Nazia Appiah Stefany [facility] OPTIMIZATION CONSULTANT [facility] MATERNAL & CHILD [facility] 1.840.114 350.1.13.10 4.2.7.2.686 [id number] 107 [id number] [facility] 2022-06-24 00:00:00 2022-06-24 00:00:00 Orders Only Doctor Unassigned, [place] [facility] 1.840.114 350.1.13.10 4.2.7.2.686 [id number] [facility] 2021-11-14 15:30:00 2021-11-14 15:30:00 [id number] 2021-11-14 15:30:00 2021-11-14 15:30:00 Imm/Inj Visit NurseAshley Immunizatio Evan Benavidez [facility] 1..840.114 350.1.13.10 4.2.7.2.686 [id number] [facility] 2021-11-13 12:45:00 2021-11-13 12:45:00 Outpatient COLETTE MASSEY [facility] [id number] [facility] 2021-11-10 10:50:00 2021-11-10 10:50:00 Outpatient EVAN GREGORY [facility] [id number] [facility] 2021 08:30:00 2021 08:30:00 [facility] [id number] [facility] 2021-10-15 13:00:00 2021-10-15 13:02:34 [facility] [id number] [facility] 2021-10-15 12:58:49 2021-10-15 13:02:34 Imm/Inj Visit NurseAshley ImmunEvan Martínez [facility] 1.2840.114 350.1.13.10 4.2.7.2.686 [id number] [facility] 2021-08-20 13:12:36 2021-08-20 14:00:07 Office Visit Colette Angeles [facility] OPTIMIZATION CONSULTANT [facility] MATERNAL & CHILD [facility] 1.840.114 350.1.13.10 4.2.7.2.686 [id number] 107 [id number] [facility] 2021-08-20 13:15:00 2021-08-20 13:15:00 Outpatient COLETTE MASSEY [facility] [id number] [facility] 2021-08-07 10:15:00 2021-08-07 10:15:00 Outpatient COLETTE MASSEY [facility] [id number] [facility] 2021-08-05 11:00:00 2021-08-05 11:00:00 Outpatient R COLETTE ANGELES [facility] [id number] [facility] 2021-07-15 10:44:47 2021-07-15 10:59:47 Routine Visit Colette Angeles [facility] OPTIMIZATION CONSULTANT [facility] MATERNAL & CHILD [facility] 1.84.114 350.1.13.10 4.2.7.2.686 [id number] 107 [id number] [facility] 2021-07-15 10:45:00 2021-07-15 10:45:00 Outpatient R COLETTE ANGELES [facility] [id number] [facility] 2021-07-07 08:15:00 2021-07-07 08:15:00 Outpatient NAZIA OTERO [facility] [id number] [facility] 2021-07-02 00:00:00 2021-07-02 00:00:00 Encounter 1.2.840.1 [id number] 3.104.2.7 .2.680913 1.2840.114 350.1.13.10 4.2.7.2.696 [id number] [facility] 2021-06-30 00:00:00 2021-06-30 00:00:00 Encounter 1.2.840.1 [id number] 3.104.2.7 .2.200606 1.2.840.114 350.1.13.10 4.2.7.2.696 [id number] [facility] 2021-06-28 00:00:00 2021-06-28 00:00:00 Encounter 1.2.840.1 [id number] 3.104.2.7 .2.178994 1.2.840.114 350.1.13.10 4.2.7.2.696 [id number] [facility] 2021-06-23 18:01:00 2021-06-26 15:00:00 Hospital Encounter Geoff Perkins [facility] 1.2.840.114 350.1.13.10 4.2.7.2.686 [id number] [facility] 2021-06-25 08:45:00 2021-06-25 08:45:00 Outpatient NAZIA OTERO [facility] [id number] [facility] 2021-06-23 18:00:00 2021-06-23 18:00:00 Outpatient NAZIA OTERO [facility] [id number] [facility] 2021-06-23 12:59:49 2021-06-23 13:50:37 Routine Visit Nazia Appiah [facility] OPTIMIZATION CONSULTANT [facility] MATERNAL & CHILD HEALTH [facility] 1.2.840.114 350.1.13.10 4.2.7.2.686 [id number] 107 [id number] [facility] 2021-06-23 00:00:00 2021-06-23 00:00:00 Telephone Nazia Appiah [facility] OPTIMIZATION CONSULTANT [facility] & CHILD [facility] 1.2.840.114 350.1.13.10 4.2.7.2.686 [id number] 107 [id number] [facility] 2021-06-11 10:42:45 2021-06-11 10:59:14 Routine Visit Charu Appiahmikhailsamanthamiguel a [facility] OPTIMIZATION CONSULTANT [facility] CHILD [facility] 1.2.840.114 350.1.13.10 4.2.7.2.686 [id number] 107 [id number] [facility] 2021-06-11 10:45:00 2021-06-11 10:45:00 Outpatient R BIJAL NAZIA [facility] [id number] [facility] 2021-05-26 16:19:01 2021-05-26 16:34:01 Routine Visit Charu Appiahtom [facility] OPTIMIZATION CONSULTANT [facility] CH[facility] 1..840.114 350.1.13.10 4.2.7.2.686 [id number] 107 [id number] [facility] 2021-05-26 16:15:00 2021-05-26 16:15:00 Outpatient R BIJAL NAZIA [facility] [id number] [facility] 2021-05-20 09:30:00 2021-05-20 09:30:00 Outpatient Stefany APPIAH NAZIA [facility] [id number] [facility] 2021-05-08 08:20:01 2021-05-08 09:27:16 Mechanical Systems Designer Visit Lab, Ang-Rmchp Charu Appiahtom [facility] OPTIMIZATION CONSULTANT [facility] 1.2.840.114 350.1.13.10 4.2.7.2.686 [id number] 107 [id number] [facility] 2021-05-08 09:01:56 2021-05-08 09:16:56 Routine Visit Bijal Nazia [facility] OPTIMIZATION CONSULTANT [facility] & CHILD [facility] 1.2.840.114 350.1.13.10 4.2.7.2.686 [id number] 107 [id number] [facility] 2021-05-08 08:30:00 2021-05-08 08:30:00 Outpatient R [facility] [id number] [facility] 2021-05-07 08:00:00 2021-05-07 08:00:00 Outpatient R [facility] [id number] [facility] 2021-05-07 00:00:00 2021-05-07 00:00:00 Telephone Dmitri Appiahlianet [facility] OPTIMIZATION CONSULTANT [facility] & CHILD [facility] 1.2.840.114 350.1.13.10 4.2.7.2.686 [id number] 107 [id number] [facility] 2021-05-05 10:51:57 2021-05-05 11:54:17 Routine Visit Charu Appiahtom [facility] OPTIMIZATION CONSULTANT [facility] & CHILD [facility] 1.2840.114 350.1.13.10 4.2.7.2.686 [id number] 107 [id number] [facility] 2021-05-05 10:45:00 2021-05-05 10:45:00 Outpatient R NAZIA APPIAH [facility] [id number] [facility] 2021-04-28 00:00:00 2021-04-28 00:00:00 Refill Charu Appiahtom [facility] OPTIMIZATION CONSULTANT [facility] MATERNAL & CHILD [facility] 1.2.840.114 350.1.13.10 4.2.7.2.686 [id number] 107 [id number] [facility] 2021-04-07 13:36:27 2021-04-07 14:18:44 Routine Visit Charu Appiahtom [facility] OPTIMIZATION CONSULTANT [facility] & CHILD [facility] 1.2.840.114 350.1.13.10 4.2.7.2.686 [id number] 107 [id number] [facility] 2021-04-07 13:45:00 2021-04-07 13:45:00 Outpatient R APPIAHNAZIA [facility] [id number] [facility] 2021-04-02 09:30:00 2021-04-02 09:30:00 Outpatient R APPIAHNAZIA [facility] [id number] [facility] 2021-03-20 00:00:00 2021-03-20 00:00:00 Abstract AppiahNazia [facility] OPTIMIZATION CONSULTANT [facility] & CHILD [facility] 1..840.114 350.1.13.10 4.2.7.2.686 [id number] 107 [id number] [facility] 2021-03-19 08:29:24 2021-03-19 09:29:24 Mechanical Systems Designer Visit Ultrasound, Charly Boudreaux [facility] OPTIMIZATION CONSULTANT [facility] MATERNAL & CHILD [facility] 1..840.114 350.1.13.10 4.2.7.2.686 [id number] [facility] 2021-03-19 08:30:00 2021-03-19 08:30:00 Outpatient P [facility] [id number] [facility] 2021-03-05 08:50:48 2021-03-05 09:55:59 Routine Visit Nazia Appiah [facility] OPTIMIZATION CONSULTANT [facility] & [facility] 1..840.114 350.1.13.10 4.2.7.2.686 [id number] 107 [id number] [facility] 2021-03-05 09:00:00 2021-03-05 09:00:00 Outpatient NAZIA OTERO [facility] [id number] [facility] 2021-02-17 00:00:00 2021-02-17 00:00:00 Refill Nazia Appiah [facility] OPTIMIZATION CONSULTANT [facility] & [facility] 1.2.840.114 350.1.13.10 4.2.7.2.686 [id number] 107 [id number] [facility] 2021-02-10 08:11:34 2021-02-10 08:27:33 Mechanical Systems Designer Visit Lab, Ang-Rmchp Nazia Appiah [facility] OPTIMIZATION CONSULTANT [facility] MATERNAL & [facility] 1.2.840.114 350.1.13.10 4.2.7.2.686 [id number] 107 [id number] [facility] 2021-02-10 08:15:00 2021-02-10 08:15:00 Outpatient R NAZIA APPIAH [facility] [id number] [facility] 2021-02-06 00:00:00 2021-02-06 00:00:00 Telephone Nazia Appiah [facility] OPTIMIZATION CONSULTANT [facility] 1.2.840.114 350.1.13.10 4.2.7.2.686 [id number] 107 [id number] [facility] 2021-02-06 00:00:00 2021-02-06 00:00:00 Telephone Nazia Appiah [facility] OPTIMIZATION CONSULTANT [facility] 1.2.840.114 350.1.13.10 4.2.7.2.686 [id number] 107 [id number] [facility] 2021-02-06 00:00:00 2021-02-06 00:00:00 Telephone Nazia Appiah [facility] OPTIMIZATION CONSULTANT [facility] 1.2.840.114 350.1.13.10 4.2.7.2.686 [id number] 107 [id number] [facility] 2021-02-05 13:13:02 2021-02-05 14:13:09 Routine Visit Nazia Appiah [facility] OPTIMIZATION CONSULTANT [facility] & [facility] 1.2.840.114 350.1.13.10 4.2.7.2.686 [id number] 107 [id number] [facility] 2021-02-05 13:00:00 2021-02-05 13:00:00 Outpatient R NAZIA APPIAH [facility] [id number] [facility] 2021-02-05 00:00:00 2021-02-05 00:00:00 Telephone Appiah, Rost[facility] OPTIMIZATION CONSULTANT [facility] 1..840.114 350.1.13.10 4.2.7.2.686 [id number] 107 [id number] [facility] 2021-02-05 00:00:00 2021-02-05 00:00:00 Orders Only Doctor Unassigned, [place] [facility] 1..840.114 350.1.13.10 4.2.7.2.686 [id number] [facility] 2021-01-23 10:30:00 2021-01-23 10:30:00 Outpatient R SRIKANTH HOWARD [facility] [id number] [facility] 2020-12-26 10:30:00 2020-12-26 10:30:00 Outpatient R SRIKANTH HOWARD [facility] [id number] [facility] 2020-12-07 09:14:26 2020-12-07 09:29:26 Mechanical Systems Designer Visit [facility] Main [facility] 1..840.114 350.1.13.10 4.2.7.2.686 [id number] [facility] 2020-12-07 09:15:00 2020-12-07 09:15:00 Outpatient R [facility] [id number] [facility] 2020-12-05 12:42:01 2020-12-05 12:57:01 Mechanical Systems Designer Visit [facility] [place] [facility] 1.840.114 350.1.13.10 4.2.7.2.686 [id number] [facility] 2020-12-05 11:00:00 2020-12-05 11:00:00 Outpatient SRIKANTH MAGALLANES [facility] [id number] Thom bond [facility] 2020-12-05 00:00:00 2020-12-05 00:00:00 Orders Only Doctor Unassigned, [place] [facility] 1.840.114 350.1.13.10 4.2.7.2.686 [id number] [facility] Results Test Description Test Time Test Comments Results Result Co mments Source [facility] with [id number] 09:31:30* Test Item Value Reference Range Interpretation Comme nts WBC (test code = 6690-2) 12.39 4.30-11.10 H RBC (test code = 789-8) 4 3.93-5.25 HGB (test code = 718-7) 12.1 g/dL 11.6-15.0 HCT (test code = 4544-3) 36.5 % 35.7-45.2 MCV (test code = 787-2) 91.3 fL 80.6-95.5 MCH (test code = 785-6) 30.3 pg 25.9-32.8 MCHC (test code = 786-4) 33.2 g/dL 31.6-35.1 RDW-SD (test code = 27770-1) 43.4 fL 39.0-49.9 RDW-CV (test code = 788-0) 13.2 % 12.0-15.5 PLT (test code = 777-3) 184 166-358 MPV (test code = 64620-3) 10.9 fL 9.5-12.9 NRBC/100 WBC (test code = 9841826198) 0 0.0-10.0 NRBC x10^3 (test code = 0274632081) See_Comment [Automated messa ge] The system which generated this result transmitted reference range: 10*3/?L. The reference range was not used to interpret this result as normal/abnormal. GRAN MAT (NEUT) % (test code = 770-8) 69.4 % IMM GRAN % (test code = 1134499381) 0.3 % LYMPH % (test code = 736-9) 24.3 % MONO % (test code = 5905-5) 5.5 % EOS % (test code = 713-8) 0.3 % BASO % (test code = 706-2) 0.2 % GRAN MAT x10^3(ANC) (test code = 9003717572) 8.59 10*3/uL 1.88-7.09 H IMM GRAN x10^3 (test code = 6249000157) 0.04 10*3/uL 0.00-0.06 LYMPH x10^3 (test code = 731-0) 3.01 10*3/uL 1.32-3.29 MONO x10^3 (test code = 742-7) 0.68 10*3/uL 0.33-0.92 EOS x10^3 (test code = 711-2) 0.04 10*3/uL 0.03-0.39 BASO x10^3 (test code = 704-7) 0.03 10*3/uL 0.01-0.07 Lab Interpretation (test code = 55124-3) Abnormal [facility] OR RADHA ONLY - [id number] 07:35:12* Test Item Value Reference Range Interpretation Comme nts RPR (Qualitative) (test code = 51998-4) Nonreactive Nonreactive Lab Interpretation (test cod e = 04630-0) Normal [facility] [id number] 16:02:16 * Test Item Value Reference Range Interpretation Comme nts HBsAg Semi-Quantitative (meredith t code = 5195-3) 0.21 Negative [facility] Ne[facility]axial [id number] 15:20:00 Reese Pastrana MD ? ? 04/04/2025 10:21 AM Central Neuraxial Block Date/Time: 04/04/2025 10:20 AM Performed by: Reese Pastrana MDAuthorized by: Reese Pastrana MD ?Patient Location: OBReason for Block: OB request, Patient request, Labor analgesia, Surgical anesthesia and Post-op pain managementStaff: ?Anesthesiologist: Reese Pastrana MD ?Performed by: anesthesiologistPreanesthetic Checklist: patient identified, IV checked, risks and benefits explained, monitors and equipment checked, timeout performed, pre- op evaluation, site marked and anesthesia consentProcedure: ?Type of Neuraxial: Epidural ?Epidural Description: 1st attempt ? Sterility Prep cap, drape, gloves, hand hygiene and mask ?Patient Position: sitting ?Prep: Betadine and patient draped ? ?Monitoring: heart rate, continuous pulse ox, heart rate / toco and NIBP ?Location: lumbar (1-5) ?Lumbar: L3-L4 ?Approach: midline ? ?Technique: JITENDRA air and catheter ?Guidance with: landmark technique}Epidural/Spinal [place] and/or Catheter: ?Epidural/Spinal Kit: BBraun ?Needle Type: Tuohy ?Needle Gauge: 17 G ?Needle Length: 3.5 in (8.89 cm) ?Needle Insertion Depth: 7 ?Catheter Type: multiport ? ?Catheter Size: 19 G ? ?Catheter atSkin Depth: 12 ?Number of Attempts: 1 ?Test Dose: lidocaine 1.5% with epinephrine 1-to-200,000 ? ?Dose: 5 cc ? ?Catheter Securement Method: surgical tape, Tegaderm, clear occlusive dressing and liquid medical adhesiveAssessment: ?Block Outcome: patient tolerated procedure well ? ?Procedure Assessment: patient tolerated procedure well with no complicationsNotes: ? Patient consented and positioned sitting upright with instructions given regarding positioning and maintaining a sterile field. Patient prepped and draped in sterile fashion. Epidural kit opened and medications prepared utilizing sterile protocol. JITENDRA to Saline was used midline at L3L4 interspace. JITENDRA was at ?7 cm attempts x 1. Catheter threaded smoothly, taped at skin at 12 cm. Negative aspiration of blood or CSF x 3. Negative Test dose. Epidural catheter secured in place using tegederm and tape while maintaining insertion site sterility. Pumps settings are continuous 12cc/hr PCEA 4cc- 15 mins lockout. 5 ml bolus was given initially. 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 Fall precautions provided, patient vocalized understanding and all questions answered. ? [facility] 1/2 Ag-Ab with [id number] 14:34:46* Test Item Value Reference Range Interpretation Comme nts HIV Semi-quantitative (test code = 29503-5) 0.15 Negative KRISTY (test code = KRISTY) Non-reactive for HIV-1 antigen and HIV-1/HIV-2 antibodies. ?No laboratory evidence of HIV infection. ?Repeat in 2-4 weeks if acute HIV infection is suspected. [facility] Henderson[facility] with [id number] 13:28:00* Test Item Value Reference Range Interpretation Comme nts WBC (test code = 6690-2) 12.36 4.30-11.10 H RBC (test code = 789-8) 4.38 3.93-5.25 HGB (test code = 718-7) 13.2 g/dL 11.6-15.0 HCT (test code = 4544-3) 39.3 % 35.7-45.2 MCV (test code = 787-2) 89.7 fL 80.6-95.5 MCH (test code = 785-6) 30.1 pg 25.9-32.8 MCHC (test code = 786-4) 33.6 g/dL 31.6-35.1 RDW-SD (test code = 95114-7) 43 fL 39.0-49.9 RDW-CV (test code = 788-0) 13.1 % 12.0-15.5 PLT (test code = 777-3) 230 166-358 MPV (test code = 49784-9) 11.4 fL 9.5-12.9 NRBC/100 WBC (test code = 5102607749) 0 0.0-10.0 NRBC x10^3 (test code = 9438993176) See_Comment [Automated messa ge] The system which generated this result transmitted reference range: 10*3/?L. The reference range was not used to interpret this result as normal/abnormal. GRAN MAT (NEUT) % (test code = 770-8) 69.6 % IMM GRAN % (test code = 3134584756) 0.4 % LYMPH % (test code = 736-9) 23.6 % MONO % (test code = 5905-5) 5.9 % EOS % (test code = 713-8) 0.2 % BASO % (test code = 706-2) 0.3 % GRAN MAT x10^3(ANC) (test code = 2607715028) 8.59 10*3/uL 1.88-7.09 H IMM GRAN x10^3 (test code = 2854024369) 0.05 10*3/uL 0.00-0.06 LYMPH x10^3 (test code = 731-0) 2.92 10*3/uL 1.32-3.29 MONO x10^3 (test code = 742-7) 0.73 10*3/uL 0.33-0.92 EOS x10^3 (test code = 711-2) 0.03 10*3/uL 0.03-0.39 BASO x10^3 (test code = 704-7) 0.04 10*3/uL 0.01-0.07 Lab Interpretation (test code = 24692-8) [facility]normal [facility] Screen - ONCE [id number] 13:16:00 * Test Item Value Reference Range Interpretation Comme nts ABO & RH (test code = 20) AB POSITIVE IAT (test code = 1185) Negative [facility] w/o Specific [id number] 14:57:00* Test Item Value Reference Range Interpretation Comme nts POCT PH U (test code = 3254) na 5-8 POCT U LEUK EST (test code = 3263) na Negative - Negative POCT U NIT (test code = 3262) na Negative - Negati ve POCT U PROT (test code = 3259) negative Negative - Negat norman POCT U GLU (test code = 3256) negative Negative - Negati ve POCT U KETONE (test code = 3258) na Negative - Neg ative POCT U BLD (test code = 3257) na Negative - Negati ve [facility]DSU [id number] 14:40:18Ordered by an unspecified provider.[facility] HendersonFetal Non-Stress Test 2025-03-24 19:21:08Strip reactive and reassuringToco with regular contractions and irritability that spaced out Luis Antonio Harvey MD ?03/24/2025 ?2:[facility] [id number] 03:02:46Exam: Ultrasound Biophysical Profile, 03/23/2025 4:00 PM. Ordering Physician: LUIS ANTONIO HARVEY. History: decreased movement . Technique: Ultrasound biophysical profile was performed, with evaluation offetal breathing, movement, tone, and amniotic fluid. ?Reactive nonstresstest was not performed. Comparison: Biophysical profile 03/08/2025. Findings: Single intrauterine gestation is noted in cephalic presentation, with aheart rate of 150 beats/min. Placenta is anterior in location. ?Four-quadrant amniotic fluid index is5.8-6.4 cm. The largest amniotic pocket is located in the right upperquadrant. Cervix is not visualized due to position. Biophysical profile: breathing 2/2Fetal movement 2/2Fetal tone 2/2Amniotic fluid 2/2 Total score [facility], Limited (>14 wks)2025-03-23 23:48:02 Ultrasound for presentation: Cephalic Luis Antonio Harvey MD ?03/23/2025 ?6:47 PM [facility] Urinalysis w/o Specific [id number] 18:15:00* Test Item Value Reference Range Interpretation Comme nts POCT PH U (test code = 3254) na 5-8 POCT U LEUK EST (test code = 3263) na Negative - Negative POCT U NIT (test code = 3262) na Negative - Negati ve POCT U PROT (test code = 3259) negative Negative - Negat norman POCT U GLU (test code = 3256) 50 Negative - Negati ve POCT U KETONE (test code = 3258) na Negative - Neg ative POCT U BLD (test code = 3257) na Negative - Negati ve [facility] w/o Specific [id number] 17:41:00* Test Item Value Reference Range Interpretation Comme nts POCT PH U (test code = 3254) N/A 5-8 POCT U LEUK EST (test code = 3263) N/A Negative - N egative POCT U NIT (test code = 3262) N/A Negative - Negati ve POCT U PROT (test code = 3259) Trace Negative - Negat norman POCT U GLU (test code = 3256) 2+ Negative - Negati ve POCT U KETONE (test code = 3258) N/A Negative - Neg ative POCT U BLD (test code = 3257) N/A Negative - Negati ve [facility] Urinalysis w/o Specific [id number] 18:11:00* Test Item Value Reference Range Interpretation Comme nts POCT PH U (test code = 3254) N/A 5-8 POCT U LEUK EST (test code = 3263) N/A Negative - Negative POCT U NIT (test code = 3262) N/A Negative - Negati ve POCT U PROT (test code = 3259) Trace Negative - Negat norman POCT U GLU (test code = 3256) Negative Negative - Negati ve POCT U KETONE (test code = 3258) N/A Negative - Neg ative POCT U BLD (test code = 3257) N/A Negative - Negati ve [facility] Urinalysis w/o Specific [id number] 18:28:00* Test Item Value Reference Range Interpretation Comme nts POCT PH U (test code = 3254) N/A 5-8 POCT U LEUK EST (test code = 3263) N/A Negative - Negative POCT U NIT (test code = 3262) N/A Negative - Negati ve POCT U PROT (test code = 3259) Negative Negative - Negat norman POCT U GLU (test code = 3256) Negative Negative - Negati ve POCT U KETONE (test code = 3258) N/A Negative - Neg ative POCT U BLD (test code = 3257) N/A Negative - Negati ve [facility] Urinalysis w/o Specific [id number] 18:26:00* Test Item Value Reference Range Interpretation Comme nts POCT PH U (test code = 3254) N/A 5-8 POCT U LEUK EST (test code = 3263) N/A Negative - Negative POCT U NIT (test code = 3262) N/A Negative - Negati ve POCT U PROT (test code = 3259) Negative Negative - Negat norman POCT U GLU (test code = 3256) Negative Negative - Negati ve POCT U KETONE (test code = 3258) N/A Negative - Neg ative POCT U BLD (test code = 3257) N/A Negative - Negati ve [facility] w/o Specific [id number] 17:30:00* Test Item Value Reference Range Interpretation Comme nts POCT PH U (test code = 3254) N/A 5-8 POCT U LEUK EST (test code = 3263) N/A Negative - Negative POCT U NIT (test code = 3262) N/A Negative - Negati ve POCT U PROT (test code = 3259) Negative Negative - Negat norman POCT U GLU (test code = 3256) Negative Negative - Negati ve POCT U KETONE (test code = 3258) N/A Negative - Neg ative POCT U BLD (test code = 3257) N/A Negative - Negati ve [facility] LAB [id number] 19:44:58Ordered by an unspecified provider.[facility] HendersonOB/DIRECTOR OF COLLECTIONS CLINIC [id number] 19:41:13Ordered by an unspecified provider.[facility]PO[facility] Urinalysis w/o Specific [id number] 18:38:00* Test Item Value Reference Range Interpretation Comme nts POCT PH U (test code = 3254) 5 mg/dl 5-8 POCT U LEUK EST (test code = 3263) 1+ Negative - Negative POCT U NIT (test code = 3262) negative Negative - Negative POCT U PROT (test code = 3259) trace Negative - Negative POCT U GLU (test code = 3256) negative Negative - Negative POCT U KETONE (test code = 3258) 1+ Negative - Negative POCT U BLD (test code = 3257) negative Negative - Negative KRISTY (test code = KRISTY) accurate developme nt and interpretation of all internal controls Lab Interpretation (test code = 19057-3) [facility] [id number] 18:13:05Ordered by an unspecified provider.[facility]PO[facility] Urinalysis w/o Specific [id number] 15:58:00* Test Item Value Reference Range Interpretation Comme nts POCT PH U (test code = 3254) n/a 5-8 POCT U LEUK EST (test code = 3263) n/a Negative - Negative POCT U NIT (test code = 3262) n/a Negative - Negati ve POCT U PROT (test code = 3259) negative Negative - Negat norman POCT U GLU (test code = 3256) negative Negative - Negati ve POCT U KETONE (test code = 3258) n/a Negative - Neg ative POCT U BLD (test code = 3257) n/a Negative - Negati ve [facility] HendersonHEMOGLOBIN [id number] 09:14:08 * Test Item Value Reference Range Interpretation Comme nts HEMOGLOBIN A1 (test code = 2575) 97.1 % 95.0-98.5 HEMOGLOBIN A2 (test code = 2576) 2.6 % 1.6-3.7 HEMOGLOBIN F () (test code = 2722) 0.3 % 0.0-2.0 HEMOGLOBIN S (test code = 2724) NONE % NONE DETECTED HEMOGLOBIN C (test code = 2726) NONE % NONE DETECTED OTHER HEMOGLOBIN VARIANT (test code = 66808) NONE DETEC % NONE DETECTED PATHOLOGIST'S INTERPRETATION (test code = 2577) (NOTE) NO ABNORMAL HEMOGLOBINS IDENTIFIED. MARTITA HAYWARD M.D. CULTURE, [id number] 08:53:56SPECIMEN NUMBER: [id number] CULTURE, URINE SPECIMEN NUMBER: [id number] SOURCE: URINE REPORT STATUS: FINAL FINAL REPORT: 10/04/2024 NO GROWTHCULTURE, [id number] 00:00:00* Test Item Value Reference Range Interpretation Comme nts CULTURE, URINE (test code = 13545) SPECIMEN NUMBER: [id number] Alex Rocha AustinHEMOGLOBIN [id number] 00:00:00* Test Item Value Reference Range Interpretation Comme nts HEMOGLOBIN A1 (test code = 2575) 97.1 % HEMOGLOBIN A2 (test code = 2576) 2.6 % HEMOGLOBIN F () (test c ode = 2722) 0.3 % HEMOGLOBIN S (test code = 2724) NONE % HEMOGLOBIN C (test code = 2726) NONE % OTHER HEMOGLOBIN VARIANT (te st code = 85550) NONE DETEC % PATHOLOGIST'S INTERPRETATION (test code = 2577) (NOTE) Alex ColePAP TEST, THINPREP, IMAGED + HPV HIGH RISK + GC AND CHLAMYDIA [id number] 14:01:53* Test Item Value Reference Range Interpretation Comme nts SOURCE: (test code = 8001) Unspecified SLIDES: (test code = 8011) 1 LMP: (test code = 8021) NOT GIVEN SPECIMEN ADEQUACY: (test code = 73470) (NOTE) Satisfactory for evaluation. INTERPRETATION: (test code = 29594) NILM/NO EPITH. ABNORMALITY;SEE BELOW -- ---- NEGATIVE FOR INTRAEPITHELIAL LESION OR MALIGNANCY (NILM) ------- DEPUTY ATTORNEY GENERAL : (test code = 8101) LILIBETHHELENE JIN(ASCP)I AC LOCATION: (test code = 98377) (NOTE) Specimens proces sed and interpreted at [facility], [address] [place], [place] [id number], , CLIA: [id number] CPT: (test code = 8140) [address] UNLESS OTHERWISE INDICATED, COMPUTER AIDED AND DEPUTY ATTORNEY GENERAL SCREENING PERFORMED. The Pap test is a screening test with an inherent, but low probability of error. Your patient should be reminded to consult you immediately if she experiences any suspicious signs or symptoms, regardless of her Pap test result. An alternate report format containing images or consolidated prior Pap history is available as applicable. HPV HIGH RISK INTERP (test code = 72488) NEGATIVE NEGATIVE HPV 16 (test code = 30816) NEGATIVE HPV 18 (test code = 31209) NEGATIVE HPV, HR, OTHER GENOTYPES (test code = 95826) NEGATIVE Testing methodol ogy is real-time PCR utilizing hydrolysis probes with the [employer] Tena system. The test individually detects genotypes 16 and 18, as well as the other 12 high risk types (31,33,35,39,45,51,52, 56,58,59,66,68). The expected result is negative. A negative result does not rule out the presence of HPV not included in the genotype set, a low level of infection or specimen sampling error. GONORRHEA, NAAT, THINPREP (test code = 92501) NEGATIVE NEGATIVE A negative resul t does not exclude low level infection, specimensampling error, or collection error. Testing is performed with the [employer] Tena 6800/8800 systems usingreal-time Polymerase Chain Reaction (PCR) method. CHLAMYDIA, NAAT, THINPREP (test code = 57505) NEGATIVE NEGATIVE A negative resul t does not exclude low level infection, specimensampling error, or collection error. Testing is performed with the [employer] Tena 6800/8800 systems usingreal-time Polymerase Chain Reaction (PCR) method. UNLESS OTHERWISE INDICATED, ALL TESTING PERFORMED AT [facility] [address] [place] [address] UKE OPERATOR: ANGÉLICA ALMODOVAR M.D. [place] NUMBER [id number] [facility] [place]. [id number] VARICELLA ZOSTER [id number] 13:52:07* Test Item Value Reference Range Interpretation Comme nts VARICELLA ZOSTER IgG (test code = 41294) 1.13 S/CO SEE BELOW PLEASE NOTE: NEW REFERENCE RANGE AND UNITS OF MEASURE. INTERPRETATION UNITS RANGE ----- ----- NEGATIVE S/CO <1.00 POSITIVE S/CO >=1.00 DRUG ABUSE SCREEN 10 REFLEX [id number] 08:16:30* Test Item Value Reference Range Interpretation Comme nts AMPHETAMINES (test code = 3201) NEGATIVE NEGATIVE BARBITURATES (test code = 3202) NEGATIVE NEGATIVE BENZODIAZEPINES (test code = 3203) NEGATIVE NEGATIVE CANNABINOIDS (THC) (test code = 3204) NEGATIVE NEGATIVE COCAINE METABOLITES (test code = 3205) NEGATIVE NEGATIVE OPIATE METABOLITES (test code = 3209) NEGATIVE NEGATIVE OXYCODONE (test code = 00338) NEGATIVE NEGATIVE PHENCYCLIDINE (PCP) (test code = 3210) NEGATIVE NEGATIVE METHADONE (test code = 3207) NEGATIVE NEGATIVE BUPRENORPHINE (test code = 68175) NEGATIVE NEGATIVE SOURCE (test code = 202931) URINE PLEASE NOTE: NEW METHODOLOGY AND SCREENING CUT OFFS SEE BELOW FOR THRESHOLDS AND IMPORTANT METHOD NOTES ANALYTE SCREENING CUTOFF UNITS AMPHETAMINES 500 NG/ML BARBITURATES 200 NG/ML BENZODIAZEPINES 200 NG/ML CANNABINOIDS (THC) 20 NG/ML COCAINE METABOLITES 150 NG/ML OPIATE METABOLITES 300 NG/ML OXYCODONE 100 NG/ML PHENCYCLIDINE (PCP) 25 NG/ML METHADONE 300 NG/ML BUPRENORPHINE 5 NG/ML NOTE: Specimens reported as PRESUMPTIVE POSITIVE have not beensubjected to confirmation testing. NOTE: Screening methodology is KIMS/HEIA. NOTE: Screening methodology is qualitative Enzyme Immunoassay.The screening method may be less sensitive for certain medicationsincluding clonazepam and lorazepam in the benzodiazepine assay andtramadol in the opiate assay, amongst others. Patient compliance,hydration status, timing and dose of medications, drug absorption andspecimen quality may affect screening assay. False positive screenresults may occur due to cross-reactivity. For clinicaldiscrepancies, consider directed testing for specific compounds orcontact the laboratory within specimen stability to forward forconfirmatory testing. This test is specified for medical purposesonly. It is not valid for forensic use. HCG, [id number] 06:26:46* Test Item Value Reference Range Interpretation Comme nts HCG, QUANTITATIVE (test code = 2506) 93551 MIU/ML SEE BELOW EXPECTED VALUES FOR HCG GST.AGE UNITS RANGE GST. AGE UNITS RANGE3 WEEKS MIU/ML 6-71 10 WEEKS MIU/ML 46,509-186,9774 WEEKS MIU/ML 10-750 12 WEEKS MIU/ML 27,832-210,6125 WEEKS MIU/ML 217-7,138 14 WEEKS MIU/ML 13,950-62,5306 WEEKS MIU/ML 158-31,795 15 WEEKS MIU/ML 12,039-70,9717 WEEKS MIU/ML 3,697-163,563 16 WEEKS MIU/ML 9,040-56,4518 WEEKS MIU/ML 32,065-149,571 17 WEEKS MIU/ML 8,175-55,8689 WEEKS MIU/ML 63,803-151,410 18 WEEKS MIU/ML 8,099-58,176MALES and NON- FEMALES . . . . . . . . MIU/ML 0-8EQGE-XPTSEICOIC FEMALES . . . . . . . . . . . . MIU/ML <=7 OBSTETRIC PANEL + [id number] 06:24:10* Test Item Value Reference Range Interpretation Comme nts WBC (test code = 1001) 9.7 K/UL 3.5-11.0 RBC (test code = 1002) 4.23 M/UL 3.80-5.40 HEMOGLOBIN (test code = 1003) 12.7 G/DL 11.5-15.5 HEMATOCRIT (test code = 1004) 38.4 % 34.0-45.0 MCV (test code = 1005) 90.8 fL 80.0-99.0 MCH (test code = 1006) 30.0 PG 25.0-33.0 MCHC (test code = 1007) 33.1 G/DL 31.0-36.0 RDW (test code = 1038) 12.2 % 11.5-15.0 NEUTROPHILS (test code = 1008) 68.2 % LYMPHOCYTES (test code = 1010) 25.9 % MONOCYTES (test code = 1011) 4.9 % EOSINOPHILS (test code = 1012) 0.6 % BASOPHILS (test code = 1013) 0.2 % IMMATURE GRANULOCYTES (test code = 1036) 0.2 % NUCLEATED RBCS (test code = 1065) 0.0 /100 WBC'S See_Comment [Automated me ssage] The system which generated this result transmitted reference range: 0.0. The reference range was not used to interpret this result as normal/abnormal. PLATELET COUNT (test code = 1015) 285 K/UL 130-400 ABSOLUTE NEUTROPHILS (test code = 1066) 6.63 K/UL 1.50-7.50 ABSOLUTE LYMPHOCYTES (test code = 1067) 2.52 K/UL 1.00-4.00 ABSOLUTE MONOCYTES (test code = 1068) 0.48 K/UL 0.20-1.00 ABSOLUTE EOSINOPHILS (test code = 1040) 0.06 K/UL 0.00-0.50 ABSOLUTE BASOPHILS (test code = 1069) 0.02 K/UL 0.00-0.20 ABS IMMATURE GRANULOCYTES (test code = 1020) 0.02 K/UL 0.00-0.10 ABS NUCLEATED RBCS (test code = 94574) 0.00 K/UL 0.00-0.11 BLOOD TYPE AND RH (test code = 3901) AB POSITIVE A HISTORICAL RECORD CHECK FOR PREVIOUS RESULTS IS NOT PERFORMED.THESE RESULTS SHOULD BE CORRELATED WITH RESULTS OF PRIOR BLOODTYPING AND ANTIBODY SCREEN STUDIES. ANTIBODY SCREEN (test code = 3902) NEGATIVE NEGATIVE A HISTORICAL RECORD CHECK FOR PREVIOUS RESULTS IS NOT PERFORMED.THESE RESULTS SHOULD BE CORRELATED WITH RESULTS OF PRIOR BLOODTYPING AND ANTIBODY SCREEN STUDIES. RUBELLA ANTIBODY SCREEN (test code = 4600) 265 IU/ML SEE BELOW RUBELLA IgG INTERP (test code = 12678) REACTIVE REACTIVE INTERPRETATI ON UNITS RANGE ----- ----- NON-REACTIVE/NON-IMM UNE IU/ML <10 REACTIVE/IMMUNE IU/ML >=10 HEPATITIS B SURF AG (test code = 2739) NON-REACTIVE NON-REACTIVE RPR (test code = 36375) NON-REACTIVE NON-REACTIVE RPR TITER (test code = 3500) NOT INDIC. TITER NOT INDIC. HIV 1/2 4TH GEN, RFLX CONF (test code = 3514) NON-REACTIVE NON-REACTIVE HEPATITIS PANEL, [id number] 06:24:10* Test Item Value Reference Range Interpretation Comments HEPATITIS A TOTAL AB (test code = 2725) REACTIVE NON-REACTIVE A HEPATITIS B SURF AG (test code = 2739) NON-REACTIVE NON-REACTIVE HEP B CORE TOTAL AB (test code = 2729) NON-REACTIVE NON-REACTIVE HEPATITIS B SURFACE AB (test code = 2737) NON-REACTIVE NON-REACTIVE HEPATITIS C ANTIBODY (test code = 4675) NON-REACTIVE NON-REACTIVE INTERPRETATION HEPATITIS A: (test code = 2552) (NOTE) Hepatitis A sero logy consistent with past exposure or previousvaccination to hepatitis A virus. No evidence of current acutehepatitis A infection. INTERPRETATION HEPATITIS B: (test code = 94411) (NOTE) Hepatitis B sero logy shows no evidence of past exposure to orcurrent infection with hepatitis B virus. No evidence of hepatitis Bimmunization is identified. INTERPRETATION HEPATITIS C: (test code = 75358) (NOTE) Hepatitis C sero logy shows no evidence of exposure to hepatitisC virus at this time. It can take up to 12 months after exposure tothe hepatitis C virus for antibodies to become detectable in the blood in certain patients. HEPATITIS A [id number] 06:24:10* Test Item Value Reference Range Interpretation Comme nts HEPATITIS A IgM (test code = 2728) NON-REACTIVE NON-REACTIVE UNLESS OTHERW ISE INDICATED, ALL TESTING PERFORMED AT [facility] [address] [place] [address] UKE OPERATOR: ANGÉLICA ALMODOVAR M.D. [place] NUMBER [id number] [facility] [place]. [id number] OBSTETRIC PANEL + [id number] 00:00:00* Test Item Value Reference Range Interpretation Comme nts WBC (test code = 1001) 9.7 K/UL RBC (test code = 1002) 4.23 M/UL HEMOGLOBIN (test code = 1003) 12.7 G/DL HEMATOCRIT (test code = 1004) 38.4 % MCV (test code = 1005) 90.8 fL MCH (test code = 1006) 30.0 PG MCHC (test code = 1007) 33.1 G/DL RDW (test code = 1038) 12.2 % NEUTROPHILS (test code = 1008) 68.2 % LYMPHOCYTES (test code = 1010) 25.9 % MONOCYTES (test code = 1011) 4.9 % EOSINOPHILS (test code = 1012) 0.6 % BASOPHILS (test code = 1013) 0.2 % IMMATURE GRANULOCYTES (test code = 1036) 0.2 % NUCLEATED RBCS (test code = 1065) 0.0 /100WBC'S PLATELET COUNT (test code = 1015) 285 K/UL ABSOLUTE NEUTROPHILS (test code = 1066) 6.63 K/UL ABSOLUTE LYMPHOCYTES (test code = 1067) 2.52 K/UL ABSOLUTE MONOCYTES (test code = 1068) 0.48 K/UL ABSOLUTE EOSINOPHILS (test code = 1040) 0.06 K/UL ABSOLUTE BASOPHILS (test code = 1069) 0.02 K/UL ABS IMMATURE GRANULOCYTES (test code = 1020) 0.02 K/UL ABS NUCLEATED RBCS (test code = 96000) 0.00 K/UL BLOOD TYPE AND RH (test code = 3901) AB POSITIVE ANTIBODY SCREEN (test code = 3902) NEGATIVE RUBELLA ANTIBODY SCREEN (test code = 4600) 265 IU/ML RUBELLA IgG INTERP (test code = 81948) REACTIVE HEPATITIS B SURF AG (test code = 2739) NON-REACTIVE RPR (test code = 22409) NON-REACTIVE RPR TITER (test code = 3500) NOT INDIC. TITER HIV 1/2 4TH GEN, RFLX CONF (test code = 3514) NON-REACTIVE Alex Rocha AustinPAP TEST, THINPREP, IMAGED + HPV HIGH RISK + GC AND CHLAMYDIA A 2024-10-03 00:00:00* Test Item Value Reference Range Interpretation Comme nts SOURCE: (test code = 8001) Unspecified SLIDES: (test code = 8011) 1 LMP: (test code = 8021) NOT GIVEN SPECIMEN ADEQUACY: (test code = 43082) (NOTE) INTERPRETATION: (test code = 65759) NILM/NO EPITH. ABNORMALITY;SEE BELOW DEPUTY ATTORNEY GENERAL: (test code = 8101) HELENE AGUIAR(ASCP)IAC LOCATION: (test code = 42341) (NOTE) CPT: (test code = 8140) 15108 HPV HIGH RISK INTERP (test code = 06475) NEGATIVE HPV 16 (test code = 00503) NEGATIVE HPV 18 (test code = 59349) NEGATIVE HPV, HR, OTHER GENOTYPES (test code = 04959) NEGATIVE GONORRHEA, NAAT, THINPREP (test code = 80283) NEGATIVE CHLAMYDIA, NAAT, THINPREP (test code = 01180) NEGATIVE PDFE (test code = PDFReport) PDF Alex ColeHCG, [id number] 00:00:00* Test Item Value Reference Range Interpretation Comme nts HCG, QUANTITATIVE (test code = 2506) 76423 MIU/ML Alex ColeHEPATITIS PROFILE (A,B,C)2024-10-03 00:00:00* Test Item Value Reference Range Interpretation Comme nts HEPATITIS A TOTAL AB (test c ode = 2725) REACTIVE HEPATITIS B SURF AG (test co de = 2739) NON-REACTIVE HEP B CORE TOTAL AB (test co de = 2729) NON-REACTIVE HEPATITIS B SURFACE AB (test code = 2737) NON-REACTIVE HEPATITIS C ANTIBODY (test c ode = 4675) NON-REACTIVE INTERPRETATION HEPATITIS A: (test code = 2552) (NOTE) INTERPRETATION HEPATITIS B: (test code = 52681) (NOTE) INTERPRETATION HEPATITIS C: (test code = 29800) (NOTE) Alex ColeDRUG ABUSE SCREEN 10 REFLEX [id number] 00:00:00* Test Item Value Reference Range Interpretation Comme nts AMPHETAMINES (test code = 3201) NEGATIVE BARBITURATES (test code = 3202) NEGATIVE BENZODIAZEPINES (test code = 3203) NEGATIVE CANNABINOIDS (THC) (test cod e = 3204) NEGATIVE COCAINE METABOLITES (test co de = 3205) NEGATIVE OPIATE METABOLITES (test cod e = 3209) NEGATIVE OXYCODONE (test code = 33693) NEGATIVE PHENCYCLIDINE (PCP) (test co de = 3210) NEGATIVE METHADONE (test code = 3207) NEGATIVE BUPRENORPHINE (test code = 94113) NEGATIVE SOURCE (test code = 849894) URINE Alex CoelVARICELLA ZOSTER [id number] 00:00:00* Test Item Value Reference Range Interpretation Comme nts VARICELLA ZOSTER IgG (test c ode = 49388) 1.13 S/CO Alex ColeHEPATITIS A IgM [REFLEX]2024-10-03 00:00:00* Test Item Value Reference Range Interpretation Comme nts HEPATITIS A IgM (test code = 2728) NON-REACTIVE Alex ColeH. PYLORI (BREATH)2023-08-06 15:23:01* Test Item Value Reference Range Interpretation Comme nts H. PYLORI (BREATH) (test code = 07864) NEGATIVE NEGATIVE UNLESS OTHER JAMES INDICATED, ALL TESTING PERFORMED AT [facility] [address] [place] [id number] UKE OPERATOR: ANGÉLICA ALMODOVAR M.D. CLIA NUMBER [id number] [facility] [place]. [id number] COMPREHENSIVE METABOLIC [id number] 05:58:24* Test Item Value Reference Range Interpretation Comme nts GLUCOSE (test code = 2216) 101 MG/DL 70-99 H BUN (test code = 2207) 13 MG/DL 6-20 CREATININE (test code = 4) 0.63 MG/DL 0.60-1.30 eGFR (2020 CKD-EPI) (test code = 04533) 129 ML/MIN/1.73 >60 CALC BUN/CREAT (test code = 2234) 21 RATIO 6-28 SODIUM (test code = 2230) 139 MEQ/L 133-146 POTASSIUM (test code = 2227) 4.2 MEQ/L 3.5-5.4 CHLORIDE (test code = 2214) 103 MEQ/L 95-107 CARBON DIOXIDE (test code = 2205) 23 MEQ/L 19-31 CALCIUM (test code = 2208) 9.4 MG/DL 8.5-10.5 PROTEIN, TOTAL (test code = 2228) 7.2 G/DL 6.1-8.3 ALBUMIN (test code = 2200) 4.4 G/DL 3.5-5.2 CALC GLOBULIN (test code = 0) 2.8 G/DL 1.9-3.7 CALC A/G RATIO (test code = 2233) 1.6 RATIO 1.0-2.6 BILIRUBIN, TOTAL (test code = 2206) 0.3 MG/DL <=1.2 ALKALINE PHOSPHATASE (test code = 2203) 66 U/L 39-117 AST (test code = 2217) 27 U/L 9-40 ALT (test code = 2218) 46 U/L 5-40 H HEMOGLOBIN [id number] 02:56:29* Test Item Value Reference Range Interpretation Comme nts HEMOGLOBIN A1c (test code = 48237) 5.6 % 4.2-5.6 HEMOGLOBIN [id number] 00:00:00* Test Item Value Reference Range Interpretation Comme nts HEMOGLOBIN A1c (test code = 79902) 5.6 % Alex Josefina DogulasCOMPREHENSIVE METABOLIC [id number] 00:00:00* Test Item Value Reference Range Interpretation Comme nts GLUCOSE (test code = 2216) 101 MG/DL BUN (test code = 2207) 13 MG/DL CREATININE (test code = 4) 0.63 MG/DL eGFR (2020 CKD-EPI) (test code = 68650) 129 ML/MIN/1.73 CALC BUN/CREAT (test code = 2235) 21 RATIO SODIUM (test code = 2231) 139 MEQ/L POTASSIUM (test code = 2228) 4.2 MEQ/L CHLORIDE (test code = 2215) 103 MEQ/L CARBON DIOXIDE (test code = 2206) 23 MEQ/L CALCIUM (test code = 2209) 9.4 MG/DL PROTEIN, TOTAL (test code = 2229) 7.2 G/DL ALBUMIN (test code = 2201) 4.4 G/DL CALC GLOBULIN (test code = 2240) 2.8 G/DL CALC A/G RATIO (test code = 2234) 1.6 RATIO BILIRUBIN, TOTAL (test code = 2207) 0.3 MG/DL ALKALINE PHOSPHATASE (test code = 2204) 66 U/L AST (test code = 2218) 27 U/L ALT (test code = 2219) 46 U/L Alex Rocha AustinH. PYLORI (BREATH)2023-08-06 00:00:00* Test Item Value Reference Range Interpretation Comme nts H. PYLORI (BREATH) (test cod e = 73257) NEGATIVE Alex Rocha AustinPOCT [id number] 21:34:00* Test Item Value Reference Range Interpretation Comme nts POCT PREG (test code = 1605) Negative On board controls acceptable with C Line (test code = 3574) Yes POCT PREG LOT # (test code = 3575) POCT PREG TEST DATE ( test code = 3576) [facility] [id number] 21:34:00* Test Item Value Reference Range Interpretation Comme nts POCT PREG (test code = 1605) Negative On board controls acceptable with C Line (test code = 3574) Yes POCT PREG LOT # (test code = 3575) POCT PREG TEST DATE ( test code = 3576) [facility] URINALYSIS W SPECIFIC [id number] 20:35:00* Test Item Value Reference Range Interpretation Comme nts POCT U SP GRAV (test code = 3255) . 1.005-1.025 POCT PH U (test code = 3254) . 5-8 POCT U LEUK EST (test code = 3263) . Negative - N egative POCT U NIT (test code = 3262) . Negative - Negati ve POCT U PROT (test code = 3259) TRACE Negative - Negat norman POCT U GLU (test code = 3256) NEG Negative - Negati ve POCT U KETONE (test code = 3258) . Negative - Neg ative POCT U UROBILI (test code = 3260) . 0.2-1 POCT U BILI (test code = 3261) . Negative - Negat norman POCT U BLD (test code = 3257) . Negative - Negati ve POCT U COLOR (test code = 3266) . POCT U APPEAR (test code = 3267) . [facility] [id number] 01:16:43* Test Item Value Reference Range Interpretation Comme nts RHIG CANDIDATE? (test code = 5188) No- see comment Patient is not a candidate for RhIg- Patient is Rh Positive.Performed at [facility] Laboratory Services - [facility] Blood [address] [place] [id number] Free: [phone] No. [id number] [facility] and Screen - ONCE [id number] 14:47:00 * Test Item Value Reference Range Interpretation Comme nts ABO & RH (test code = 20) AB Positive IAT (test code = 1185) Negative [facility] SPECIFIC [id number] 16:11:00* Test Item Value Reference Range Interpretation Comme nts POCT U SP GRAV (test code = 3255) . 1.005-1.025 POCT PH U (test code = 3254) . 5-8 POCT U LEUK EST (test code = 3263) . Negative - N egative POCT U NIT (test code = 3262) . Negative - Negati ve POCT U PROT (test code = 3259) trace Negative - Negat norman POCT U GLU (test code = 3256) neg Negative - Negati ve POCT U KETONE (test code = 3258) . Negative - Neg ative POCT U UROBILI (test code = 3260) . 0.2-1 POCT U BILI (test code = 3261) . Negative - Negat norman POCT U BLD (test code = 3257) . Negative - Negati ve POCT U COLOR (test code = 3266) . POCT U APPEAR (test code = 3267) . [facility] URINALYSIS W SPECIFIC [id number] 16:22:00* Test Item Value Reference Range Interpretation Comme nts POCT U SP GRAV (test code = 3255) . 1.005-1.025 POCT PH U (test code = 3254) 6 mg/dl 5-8 POCT U LEUK EST (test code = 3263) 2+ Negative - Negative POCT U NIT (test code = 3262) negative Negative - Negati ve POCT U PROT (test code = 3259) 1+ Negative - Negat norman POCT U GLU (test code = 3256) negative Negative - Negati ve POCT U KETONE (test code = 3258) negative Negative - Neg ative POCT U UROBILI (test code = 3260) . 0.2-1 POCT U BILI (test code = 3261) . Negative - Negat norman POCT U BLD (test code = 3257) negative Negative - Negati ve POCT U COLOR (test code = 3266) . POCT U APPEAR (test code = 3267) . [facility] URINALYSIS W SPECIFIC [id number] 19:16:00* Test Item Value Reference Range Interpretation Comme nts POCT U SP GRAV (test code = 3255) . 1.005-1.025 POCT PH U (test code = 3254) 6 mg/dl 5-8 POCT U LEUK EST (test code = 3263) trace Negative - Negative POCT U NIT (test code = 3262) negative Negative - Negati ve POCT U PROT (test code = 3259) trace Negative - Negat norman POCT U GLU (test code = 3256) negative Negative - Negati ve POCT U KETONE (test code = 3258) 1+ Negative - Neg ative POCT U UROBILI (test code = 3260) . 0.2-1 POCT U BILI (test code = 3261) . Negative - Negat norman POCT U BLD (test code = 3257) negative Negative - Negati ve POCT U COLOR (test code = 3266) . POCT U APPEAR (test code = 3267) . [facility] URINALYSIS W SPECIFIC [id number] 19:58:00* Test Item Value Reference Range Interpretation Comme nts POCT U SP GRAV (test code = 3255) . 1.005-1.025 POCT PH U (test code = 3254) 7 mg/dl 5-8 POCT U LEUK EST (test code = 3263) 1+ Negative - Negative POCT U NIT (test code = 3262) neg Negative - Negati ve POCT U PROT (test code = 3259) 1+ Negative - Negat norman POCT U GLU (test code = 3256) neg Negative - Negati ve POCT U KETONE (test code = 3258) small Negative - Neg ative POCT U UROBILI (test code = 3260) . 0.2-1 POCT U BILI (test code = 3261) . Negative - Negat norman POCT U BLD (test code = 3257) neg Negative - Negati ve POCT U COLOR (test code = 3266) POCT U APPEAR (test code = 3267) [facility] URINALYSIS W SPECIFIC [id number] 19:58:00* Test Item Value Reference Range Interpretation Comme nts POCT U SP GRAV (test code = 3255) . 1.005-1.025 POCT PH U (test code = 3254) 7 mg/dl 5-8 POCT U LEUK EST (test code = 3263) 1+ Negative - Negative POCT U NIT (test code = 3262) neg Negative - Negati ve POCT U PROT (test code = 3259) 1+ Negative - Negat norman POCT U GLU (test code = 3256) neg Negative - Negati ve POCT U KETONE (test code = 3258) small Negative - Neg ative POCT U UROBILI (test code = 3260) . 0.2-1 POCT U BILI (test code = 3261) . Negative - Negat norman POCT U BLD (test code = 3257) neg Negative - Negati ve POCT U COLOR (test code = 3266) POCT U APPEAR (test code = 3267) [facility] URINALYSIS W SPECIFIC [id number] 19:35:00* Test Item Value Reference Range Interpretation Comme nts POCT U SP GRAV (test code = 3255) . 1.005-1.025 POCT PH U (test code = 3254) 7 mg/dl 5-8 POCT U LEUK EST (test code = 3263) 1+ Negative - Negative POCT U NIT (test code = 3262) Neg Negative - Negati ve POCT U PROT (test code = 3259) Trace Negative - Negat norman POCT U GLU (test code = 3256) Neg Negative - Negati ve POCT U KETONE (test code = 3258) Small Negative - Neg ative POCT U UROBILI (test code = 3260) . 0.2-1 POCT U BILI (test code = 3261) . Negative - Negat norman POCT U BLD (test code = 3257) Trace Negative - Negati ve POCT U COLOR (test code = 3266) POCT U APPEAR (test code = 3267) [facility] URINALYSIS W SPECIFIC [id number] 17:27:00* Test Item Value Reference Range Interpretation Comme nts POCT U SP GRAV (test code = 3255) . 1.005-1.025 POCT PH U (test code = 3254) 7 mg/dl 5-8 POCT U LEUK EST (test code = 3263) Trace Negative - Negative POCT U NIT (test code = 3262) Neg Negative - Negati ve POCT U PROT (test code = 3259) Trace Negative - Negat norman POCT U GLU (test code = 3256) Neg Negative - Negati ve POCT U KETONE (test code = 3258) None Negative - Neg ative POCT U UROBILI (test code = 3260) . 0.2-1 POCT U BILI (test code = 3261) . Negative - Negat norman POCT U BLD (test code = 3257) Trace Negative - Negati ve POCT U COLOR (test code = 3266) POCT U APPEAR (test code = 3267) [facility] [id number] 06:07:31 * Test Item Value Reference Range Interpretation Comme nts TSH (test code = 3758410121) See_Comment L [Automated messa ge] The system which generated this result transmitted reference range: 0.45 - 4.70 mIU/L. The reference range was not used to interpret this result as normal/abnormal. Lab Interpretation (test code = 61524-3) Abnormal [facility] [id number] 05:54:30* Test Item Value Reference Range Interpretation Comme nts FREE T3 (test code = 2874426781) 3.15 pg/mL 2.77-5.27 Lab Interpretation (test cod e = 37207-8) Normal [facility] [id number] 05:54:30* Test Item Value Reference Range Interpretation Comme nts FREE T4 (test code = 4528232185) See_Comment [Automated messa ge] The system which generated this result transmitted reference range: 0.78 - 2.20 ng/dL:. The reference range was not used to interpret this result as normal/abnormal. Lab Interpretation (test code = 29724-4) Normal [facility] URINALYSIS W SPECIFIC [id number] 16:58:00* Test Item Value Reference Range Interpretation Comme nts POCT U SP GRAV (test code = 3255) . 1.005-1.025 POCT PH U (test code = 3254) . 5-8 POCT U LEUK EST (test code = 3263) . Negative - Negative POCT U NIT (test code = 3262) . Negative - Negati ve POCT U PROT (test code = 3259) trace Negative - Negat nomran POCT U GLU (test code = 3256) negative Negative - Negati ve POCT U KETONE (test code = 3258) . Negative - Neg ative POCT U UROBILI (test code = 3260) . 0.2-1 POCT U BILI (test code = 3261) . Negative - Negat norman POCT U BLD (test code = 3257) . Negative - Negati ve POCT U COLOR (test code = 3266) yellow POCT U APPEAR (test code = 3267) clear [facility] URINALYSIS W SPECIFIC [id number] 15:46:00* Test Item Value Reference Range Interpretation Comme nts POCT U SP GRAV (test code = 3255) . 1.005-1.025 POCT PH U (test code = 3254) 5 mg/dl 5-8 POCT U LEUK EST (test code = 3263) negative Negative - Negative POCT U NIT (test code = 3262) negative Negative - Negati ve POCT U PROT (test code = 3259) trace Negative - Negat norman POCT U GLU (test code = 3256) negative Negative - Negati ve POCT U KETONE (test code = 3258) negative Negative - Neg ative POCT U UROBILI (test code = 3260) . 0.2-1 POCT U BILI (test code = 3261) . Negative - Negat noramn POCT U BLD (test code = 3257) negative Negative - Negati ve POCT U COLOR (test code = 3266) yuri POCT U APPEAR (test code = 3267) clear [facility] URINALYSIS W SPECIFIC [id number] 15:46:00* Test Item Value Reference Range Interpretation Comme nts POCT U SP GRAV (test code = 3255) . 1.005-1.025 POCT PH U (test code = 3254) 5 mg/dl 5-8 POCT U LEUK EST (test code = 3263) negative Negative - Negative POCT U NIT (test code = 3262) negative Negative - Negati ve POCT U PROT (test code = 3259) trace Negative - Negat norman POCT U GLU (test code = 3256) negative Negative - Negati ve POCT U KETONE (test code = 3258) negative Negative - Neg ative POCT U UROBILI (test code = 3260) . 0.2-1 POCT U BILI (test code = 3261) . Negative - Negat norman POCT U BLD (test code = 3257) negative Negative - Negati ve POCT U COLOR (test code = 3266) yuri POCT U APPEAR (test code = 3267) clear [facility] URINALYSIS W SPECIFIC [id number] 18:25:00* Test Item Value Reference Range Interpretation Comme nts POCT U SP GRAV (test code = 3255) . 1.005-1.025 POCT PH U (test code = 3254) 7 mg/dl 5-8 POCT U LEUK EST (test code = 3263) Neg Negative - Negative POCT U NIT (test code = 3262) Neg Negative - Negati ve POCT U PROT (test code = 3259) Trace Negative - Negat norman POCT U GLU (test code = 3256) Neg Negative - Negati ve POCT U KETONE (test code = 3258) Small Negative - Neg ative POCT U UROBILI (test code = 3260) . 0.2-1 POCT U BILI (test code = 3261) . Negative - Negat norman POCT U BLD (test code = 3257) Neg Negative - Negati ve POCT U COLOR (test code = 3266) . POCT U APPEAR (test code = 3267) [facility] URINALYSIS W SPECIFIC [id number] 18:25:00* Test Item Value Reference Range Interpretation Comme nts POCT U SP GRAV (test code = 3255) . 1.005-1.025 POCT PH U (test code = 3254) 7 mg/dl 5-8 POCT U LEUK EST (test code = 3263) Neg Negative - Negative POCT U NIT (test code = 3262) Neg Negative - Negati ve POCT U PROT (test code = 3259) Trace Negative - Negat norman POCT U GLU (test code = 3256) Neg Negative - Negati ve POCT U KETONE (test code = 3258) Small Negative - Neg ative POCT U UROBILI (test code = 3260) . 0.2-1 POCT U BILI (test code = 3261) . Negative - Negat norman POCT U BLD (test code = 3257) Neg Negative - Negati ve POCT U COLOR (test code = 3266) . POCT U APPEAR (test code = 3267) [facility] URINALYSIS W SPECIFIC [id number] 18:25:00* Test Item Value Reference Range Interpretation Comme nts POCT U SP GRAV (test code = 3255) . 1.005-1.025 POCT PH U (test code = 3254) 7 mg/dl 5-8 POCT U LEUK EST (test code = 3263) Neg Negative - Negative POCT U NIT (test code = 3262) Neg Negative - Negati ve POCT U PROT (test code = 3259) Trace Negative - Negat norman POCT U GLU (test code = 3256) Neg Negative - Negati ve POCT U KETONE (test code = 3258) Small Negative - Neg ative POCT U UROBILI (test code = 3260) . 0.2-1 POCT U BILI (test code = 3261) . Negative - Negat norman POCT U BLD (test code = 3257) Neg Negative - Negati ve POCT U COLOR (test code = 3266) . POCT U APPEAR (test code = 3267) [facility] URINALYSIS W SPECIFIC [id number] 18:25:00* Test Item Value Reference Range Interpretation Comme nts POCT U SP GRAV (test code = 3255) . 1.005-1.025 POCT PH U (test code = 3254) 7 mg/dl 5-8 POCT U LEUK EST (test code = 3263) Neg Negative - Negative POCT U NIT (test code = 3262) Neg Negative - Negati ve POCT U PROT (test code = 3259) Trace Negative - Negat norman POCT U GLU (test code = 3256) Neg Negative - Negati ve POCT U KETONE (test code = 3258) Small Negative - Neg ative POCT U UROBILI (test code = 3260) . 0.2-1 POCT U BILI (test code = 3261) . Negative - Negat norman POCT U BLD (test code = 3257) Neg Negative - Negati ve POCT U COLOR (test code = 3266) . POCT U APPEAR (test code = 3267) [facility] URINALYSIS W SPECIFIC [id number] 16:40:00* Test Item Value Reference Range Interpretation Comme nts POCT U SP GRAV (test code = 3255) * 1.005-1.025 POCT PH U (test code = 3254) * 5-8 POCT U LEUK EST (test code = 3263) * Negative - Negative POCT U NIT (test code = 3262) * Negative - Negati ve POCT U PROT (test code = 3259) trace Negative - Negat norman POCT U GLU (test code = 3256) negative Negative - Negati ve POCT U KETONE (test code = 3258) * Negative - Neg ative POCT U UROBILI (test code = 3260) * 0.2-1 POCT U BILI (test code = 3261) * Negative - Negat norman POCT U BLD (test code = 3257) * Negative - Negati ve POCT U COLOR (test code = 3266) * POCT U APPEAR (test code = 3267) [facility] HR GLUCOSE TOLERANCE [id number] 05:42:01 * Test Item Value Reference Range Interpretation Comme nts GLUC 3 HR (test code = 2428365792) 107 mg/dL 70-110 Lab Interpretation (test cod e = 32438-1) Normal [facility] HR GLUCOSE TOLERANCE [id number] 05:38:39 * Test Item Value Reference Range Interpretation Comme nts GLUC 1 HR (test code = 2805099384) 146 mg/dL 120-170 Lab Interpretation (test cod e = 52470-3) Normal [facility] [id number] 05:37:38* Test Item Value Reference Range Interpretation Comme nts GLU FASTNG (test code = 6157713755) 93 mg/dL 70-110 Lab Interpretation (test cod e = 19082-4) Normal [facility] HR GLUCOSE TOLERANCE [id number] 05:27:40 * Test Item Value Reference Range Interpretation Comme nts GLUC 2 HR (test code = 9766248457) 119 mg/dL 70-120 Lab Interpretation (test cod e = 71418-9) Normal [facility] History and Physical Notes Date/Time Note Provider Source 2025-04-04 07:30:00 TRIAGE HISTORY & PHYSICAL IDENTIFYING DATA Javan Garcia is 24 year old, /White, 38w2d, female with HUGO 04/16/2025, by Last Menstrual Period. : 2001 Primary Care Physician: PATIENT DOES NOT HAVE A PCP CHIEF COMPLAINT Contractions HISTORY OF PRESENT ILLNESS Javan Garcia is a 24 year old at 38w2d who presents with complaints of contractions. Patient reports she has been having regular contractions every 5 minutes accompanied with spotting. Reports good FM. Denies urinary symptoms, heavy vaginal bleeding, LOF, or regular contractions. Denies symptoms of PreE. PAST OBSTETRIC HISTORY OB History Para Term AB Living 3 2 1 1 2 SAB IAB Ectopic Multiple Live Births 0 2 # Outcome Date GA Lbr Rashad/2nd Weight Sex Type Anes PTL Lv 3 Current 2 Term 02/02/23 37w2d 3300 g M NORMAL SPONT EPI N MATTHEW 1 06/24/21 34w0d 2140 g M NORMAL SPONT EPI MATTHEW PAST MEDICAL HISTORY Problem list: Patient Active Problem List Diagnosis Date Noted Normal labor 04/04/2025 38 weeks gestation of 04/04/2025 Uterine contractions at greater than 20 weeks of gestation 04/04/2025 History of delivery 10/09/2024 Asthma affecting , antepartum 10/11/2022 Abnormal thyroid blood test 09/08/2022 High-risk in third trimester 07/03/2022 Obesity (BMI 30-39.9) 06/23/2021 Maternal varicella, non-immune 02/06/2021 Supervision of high risk , antepartum 02/05/2021 Operations: No past surgical history on file. Past Medical History: Diagnosis Date Asthma rescue inhaler Gestational hypertension 06/25/2021 CURRENT HEALTH STATUS Medications: Current Facility-Administered Medications Medication Dose Route Frequency Last Rate Last Admin acetaminophen (TYLENOL) tablet 1,000 mg 1,000 mg Oral Q8HPRN benzocaine-menthol (DERMOPLAST) 20-0.5 % topical spray Topical PRN D5W-LR IV infusion 1,000 mL 1,000 mL IV Infusion TITRATE 75 mL/hr at 04/04/25 0750 1,000 mL at 04/04/25 0750 diphenhydrAMINE (BENADRYL) tablet 25 mg 25 mg Oral Q6HPRN docusate (COLACE) capsule 200 mg 200 mg Oral QDAILYPRN ibuprofen (MOTRIN) tablet 800 mg 800 mg Oral Q8HPRN magnesium hydroxide (MILK OF MAGNESIA) 400 mg/5 mL suspension 30 mL 30 mL Oral QDAILYPRN ondansetron (ZOFRAN (PF)) injection 4 mg 4 mg Slow IV Push Q8HPRN Oxytocin in Normal Saline 30 unit/500 mL IV infusion Soln 300 mL/hr IV Infusion SEE-INSTRUCTIONS Oxytocin in Normal Saline 30 unit/500 mL IV infusion Soln 600 mL/hr IV Infusion PRN [START ON 04/05/2025] [id number] fum-folic () tablet 1 tablet 1 tablet Oral DAILY simethicone (GAS RELIEF (SIMETHICONE)) chewable tablet 160 mg 160 mg Oral PC+HSPRN witch Bakari (TUCKS) 50 % topical pad Topical PRN Facility-Administered Medications Ordered in Other Encounters Medication Dose Route Frequency Last Rate Last Admin fentaNYL-ropivacaine 2 mcg/mL-0.1 % (PF) in NS 200 mL epidural infusion RTU Epidural CONTINUOUS PRN 10 mL/hr at 04/04/25 09 10 mL/hr at 04/04/25904 lidocaine-epinephrine (XYLOCAINE W/EPINEPHRINE) 1.5 %-1:200,000 injection Epidural ONCE INTRA PROCEDURE 5 mL at 04/04/25904 Allergies and drug reactions: [place] [hydroxyprogest(pf)(preg presv)] HOME MEDICATIONS Medications Prior to Admission Medication Sig Dispense Refill Last Dose/Taking metroNIDAZOLE 500 mg tablet Take 1 tablet by mouth in the morning and 1 tablet in the evening. 14 tablet 0 albuterol 90 mcg/actuation inhaler Inhale 2 Puffs every 4 (four) hours as needed for Wheezing or Shortness of Breath. 8.5 g 0 budesonide-formoteroL (SYMBICORT) 80-4.5 mcg/actuation inhaler Inhale 2 Puffs in the morning and 2 Puffs in the evening. 10.2 g 2 vitamin w/FA tablet Take 1 tablet by mouth in the morning. 100 tablet 3 03/06/2025 SOCIAL HISTORY Tobacco History: Social History Tobacco Use Smoking Status Never Smokeless Tobacco Never Drug History: Social History Substance and Sexual Activity Drug Use Never Alcohol History: Social History Substance and Sexual Activity Alcohol Use Never FAMILY HISTORY Family History Problem Relation Age of Onset No Significant Medical Problems Mother No Significant Medical Problems Father No Significant Medical Problems Sister Asthma Brother Arthritis NoFHx defects NoFHx Breast Cancer NoFHx Colon Cancer NoFHx Ovarian Cancer NoFHx Uterine Cancer NoFHx Cancer NoFHx Depression NoFHx Diabetes NoFHx Genetic NoFHx Heart NoFHx High cholesterol NoFHx Hypertension NoFHx Mental retardation NoFHx Neurological NoFHx Osteoporosis NoFHx Psychiatry NoFHx Other - see comments NoFHx REVIEW OF SYSTEMS General: negative Constitutional: negative Eyes: negative ENT/Mouth: negative Cardiovascular: negative Respiratory: negative Gastrointestinal:negative Genitourinary: contractions Musculoskeletal: negative Skin/breast: negative Neurological: negative Psychiatric: negative Endocrine: negative Hemat/Lymph: negative Allergic/Immuno:none VITAL SIGNS BP: (104-121)/(63-86) Temp: [36.9 ?C (98.4 ?F)-37.2 ?C (98.9 ?F)] Temp source: Oral (04/04 1000) Pulse: [74-99] Resp: [17-18] SpO2: [99 %-100 %] Height: [157.5 cm (5' 2")] Weight: [84.1 kg (185 lb 4.8 oz)] BMI (calculated): [33.89] PHYSICAL EXAMINATIONS General: patient alert and in no acute distress HEENT: symmetric, negative for masses Lungs: unlabored breathing Cardiology: peripheral pulses intact and regular Abdomen: soft, non-tender, non-distended, no liver, spleen or abnormal masses palpated and Gravid Extremities: no clubbing, cyanosis, or edema Neuro: patient moving all extremities, no facial droop : SVE: Dilation: 10 / Effacement (%): 100 % / Station: +2, scant blood on glove, bag palpated per RN. REVIEW OF LABORATORY, PATHOLOGY, AND RADIOLOGY DATA Lab results: Type & Screen HIV Hep B Syphilis Chlamydia ABO & RH Date Value Ref Range Status 04/04/2025 AB POSITIVE Final No results found for: "HIVMULTIPLEX" No components found for: "HBSHBSAG" Syphilis IgG/IgM Date Value Ref Range Status 01/02/2025 Nonreactive Nonreactive Final C. trachomatis Nucleic Acid Date Value Ref Range Status 03/24/2025 Negative Negative Final IAT Date Value Ref Range Status 04/04/2025 Negative Final Varicella Rubella Glucose Group B Strep CBC VZV IgG antibody Date Value Ref Range Status 06/24/2022 Positive Negative Final Rubella screen IgG Date Value Ref Range Status 06/24/2022 Positive Negative Final GLUC 1 HR Date Value Ref Range Status 01/02/2025 134 120 - 170 mg/dL Final No results found for: "CGBS" HGB Date Value Ref Range Status 04/04/2025 13.2 11.6 - 15.0 g/dL Final HCT Date Value Ref Range Status 04/04/2025 39.3 35.7 - 45.2 % Final PLT Date Value Ref Range Status 04/04/2025 230 166 - 358 10*3/?L Final Active Hospital Problems Diagnosis Date Noted Normal labor 04/04/2025 38 weeks gestation of 04/04/2025 Uterine contractions at greater than 20 weeks of gestation 04/04/2025 History of delivery 10/09/2024 Asthma affecting , antepartum 10/11/2022 Resolved Hospital Problems No resolved problems to display. Present on Admission: Normal labor History of delivery Asthma affecting , antepartum 38 weeks gestation of Uterine contractions at greater than 20 weeks of gestation ASSESSMENT AND PLAN Javan Garcia is a 24 year old at 38w2d who presents with complaints of contractions. Contractions - Reports she has been having regular contractions every 5 minutes accompanied with spotting. - Reports good FM. Denies urinary symptoms, heavy vaginal bleeding, LOF, or regular contractions. Denies symptoms of PreE. - FHT Cat 1 on arrival - [place]: ctx every 5-7 min - SVE: Dilation: 4 / Effacement (%): 70 % / Station: -3, scant blood on glove, bag palpated per RN. - Delivery consents signed: 03/23/25 - Plan: Admit to L&D for augmentation of labor, cervical change at 38w2d. H/o delivery - 1st in 2020, delivered at 34w0d due to PPROM. H/o Asthma - Denies s/s - On Symbicort and Albuterol inhaler as needed. Antepartum course reviewed - 1 h wnl, sero neg, RI, VZVI, ABpos/neg, GBS neg, Pap NIL 03/23/23 - H/H, plt: 12.4 / 37.1, 240 on 01/02/25 - PVT of MD Harvey Fetus - Presentation on admission: cephalic on BSUS - EFW: 57%ile, anterior placenta, CHARLES wnl, normal anatomy on MFM US 03/26/25 - NIPT low risk, Horizon neg. Placenta Accreta Screening Prior ? : No Prior Uterine Surgery?: No Placenta low lying/previa in current ? : No Screening outcome: Negative screening. PLAN: Admit to L&D for augmentation of labor, cervical change at 38w2d. Beatriz Ragsdale MSN, SASH REPAIRER, PILE DRIVING SUPERVISOR-C This patient was seen, evaluated, and discussed with the attending provider. Plan of care discussed and agreed upon. Informed consent discussed with the patient, including: condition, proposed care, treatments and services, alternative forms of treatment, and risks of no treatment. Details discussed around the procedures to be used, and the risks and hazards involved, potential benefits, and side effects of the patient s proposed care, treatment, and services; the likelihood of the patient achieving his or her goals; and any potential problems that might occur during recuperation. Reasonable alternative also discussed with the patient s proposed care, treatment, and services. The discussion encompasses risks, benefits, and side effects related to the alternative and risks related to not receiving the proposed care, treatment, and services. Cosigned by Luis Antonio Harvey MD at 04/04/2025 10:47 AM CDT Associated attestation - Luis Antonio Harvey MD - 04/04/2025 10:47 AM CDT Agreed with RN: admit for delivery due to labor. Luis Antonio Harvey MD 04/04/2025 10:47 AM [facility] 2025-03-24 14:21:11 TRIAGE HISTORY & PHYSICAL IDENTIFYING DATA Javan Garcia is 24 year old, /White, 36w4d, female with HUGO 04/16/2025, by Last Menstrual Period. : 2001 Primary Care Physician: PATIENT DOES NOT HAVE A PCP CHIEF COMPLAINT contractions HISTORY OF PRESENT ILLNESS Javan Garcia is a 24 year old female @ 36w5d presented for contractions. +FM. No VB, LOF. No pre-eclampsia sx or other complaints. PAST OBSTETRIC HISTORY OB History Para Term AB Living 3 2 1 1 2 SAB IAB Ectopic Multiple Live Births 0 2 # Outcome Date GA Lbr Rashad/2nd Weight Sex Type Anes PTL Lv 3 Current 2 Term 02/02/23 37w2d 3300 g M NORMAL SPONT EPI N MATTHEW 1 06/24/21 34w0d 2140 g M NORMAL SPONT EPI MATTHEW PAST MEDICAL HISTORY Problem list: Patient Active Problem List Diagnosis Date Noted BV (bacterial vaginosis) 03/24/2025 Left chest pressure 03/23/2025 uterine contractions in third trimester, antepartum 03/23/2025 Vaginal discharge during in third trimester 03/07/2025 36 weeks gestation of 03/07/2025 Decreased movements in third trimester, single or unspecified fetus 01/11/2025 History of delivery 10/09/2024 Asthma affecting , antepartum 10/11/2022 Abnormal thyroid blood test 09/08/2022 High-risk in third trimester 07/03/2022 Obesity (BMI 30-39.9) 06/23/2021 Maternal varicella, non-immune 02/06/2021 Supervision of high risk , antepartum 02/05/2021 Operations: No past surgical history on file. Past Medical History: Diagnosis Date Asthma rescue inhaler Gestational hypertension 06/25/2021 CURRENT HEALTH STATUS Medications: No current facility-administered medications for this encounter. Allergies and drug reactions: Apache [hydroxyprogest(pf)(preg presv)] HOME MEDICATIONS Medications Prior to Admission Medication Sig Dispense Refill Last Dose/Taking albuterol 90 mcg/actuation inhaler Inhale 2 Puffs every 4 (four) hours as needed for Wheezing or Shortness of Breath. 8.5 g 0 budesonide-formoteroL (SYMBICORT) 80-4.5 mcg/actuation inhaler Inhale 2 Puffs in the morning and 2 Puffs in the evening. 10.2 g 2 vitamin w/FA tablet Take 1 tablet by mouth in the morning. 100 tablet 3 03/06/2025 SOCIAL HISTORY Tobacco History: Social History Tobacco Use Smoking Status Never Smokeless Tobacco Never Drug History: Social History Substance and Sexual Activity Drug Use Never Alcohol History: Social History Substance and Sexual Activity Alcohol Use Never FAMILY HISTORY Family History Problem Relation Age of Onset No Significant Medical Problems Mother No Significant Medical Problems Father No Significant Medical Problems Sister Asthma Brother Arthritis NoFHx defects NoFHx Breast Cancer NoFHx Colon Cancer NoFHx Ovarian Cancer NoFHx Uterine Cancer NoFHx Cancer NoFHx Depression NoFHx Diabetes NoFHx Genetic NoFHx Heart NoFHx High cholesterol NoFHx Hypertension NoFHx Mental retardation NoFHx Neurological NoFHx Osteoporosis NoFHx Psychiatry NoFHx Other - see comments NoFHx REVIEW OF SYSTEMS General: negative Constitutional: negative Eyes: negative ENT/Mouth: negative Cardiovascular: negative Respiratory: negative Gastrointestinal:negative Genitourinary: see HPI Musculoskeletal: negative Skin/breast: negative Neurological: negative Psychiatric: negative Endocrine: negative Hemat/Lymph: negative Allergic/Immuno:none VITAL SIGNS BP: (109-117)/(62-82) Temp: [36.8 ?C (98.3 ?F)-37 ?C (98.6 ?F)] Temp source: Oral (03/24 705) Pulse: [82-118] Resp: [16-18] SpO2: [91 %-100 %] Height: [157.5 cm (5' 2")] Weight: [84.1 kg (185 lb 8 oz)] BMI (calculated): [33.93] PHYSICAL EXAMINATIONS Gen: alert and oriented, well appearing, no distress CV: RRR, normal S1/S2, no m/r/g Resp: normal work of breathing, lungs CTAB Abd: gravid, soft, NTTP Ext: no calf tenderness or edema : SVE 1/50/ballotable x 2 by CHECKOUT OPERATOR OF LABORATORY, PATHOLOGY, AND RADIOLOGY DATA Lab results: Type & Screen HIV Hep B Syphilis Chlamydia ABO & RH Date Value Ref Range Status 01/02/2025 AB POSITIVE Final No results found for: "HIVMULTIPLEX" No components found for: "HBSHBSAG" Syphilis IgG/IgM Date Value Ref Range Status 01/02/2025 Nonreactive Nonreactive Final C. trachomatis Nucleic Acid Date Value Ref Range Status 03/07/2025 Negative Negative Final IAT Date Value Ref Range Status 01/02/2025 Negative Final Varicella Rubella Glucose Group B Strep CBC VZV IgG antibody Date Value Ref Range Status 06/24/2022 Positive Negative Final Rubella screen IgG Date Value Ref Range Status 06/24/2022 Positive Negative Final GLUC 1 HR Date Value Ref Range Status 01/02/2025 134 120 - 170 mg/dL Final No results found for: "CGBS" HGB Date Value Ref Range Status 01/02/2025 12.4 11.6 - 15.0 g/dL Final HCT Date Value Ref Range Status 01/02/2025 37.1 35.7 - 45.2 % Final PLT Date Value Ref Range Status 01/02/2025 240 166 - 358 10*3/?L Final Active Hospital Problems Diagnosis Date Noted BV (bacterial vaginosis) 03/24/2025 uterine contractions in third trimester, antepartum 03/23/2025 36 weeks gestation of 03/07/2025 Supervision of high risk , antepartum 02/05/2021 Resolved Hospital Problems No resolved problems to display. Present on Admission: uterine contractions in third trimester, antepartum Supervision of high risk , antepartum 36 weeks gestation of Placenta Accreta Screening Screening outcome: A positive screening outcome indicates a history of prior delivery or prior uterine surgery, AND the presence of either a placenta low lying/previa or ultrasound suspicion of PASD in the current . Negative screening. ASSESSMENT AND PLAN Javan Garcia is a 24 year old at 36w5d who presents with contractions. contractions - SVE remained unchanged at /ballotable - BMZ#2 given - + BV: Flagyl Rx stable for discharge home with daily kick counts and strong labor precautions PVT of Dr. Harvey, please see OB Summary for more details Luis Antonio Harvey MD [facility] 2025-03-23 21:56:30 TRIAGE HISTORY & PHYSICAL IDENTIFYING DATA Javan Garcia is 24 year old, /White, 36w4d, female with HUGO 04/16/2025, by Last Menstrual Period. : 2001 Primary Care Physician: PATIENT DOES NOT HAVE A PCP CHIEF COMPLAINT Sent from clinic for decreased FM HISTORY OF PRESENT ILLNESS Javan Garcia is a 24 year old female @ 36w4d sent from clinic for prolonged monitoring and BPP due to decreased FM. Patient states that FM more now and patient feels reassured. + intermittent lower abdominal cramping but not frequent. +FM. No VB, LOF, or CTX. No pre-eclampsia sx or other complaints. PAST OBSTETRIC HISTORY OB History Para Term AB Living 3 2 1 1 2 SAB IAB Ectopic Multiple Live Births 0 2 # Outcome Date GA Lbr Rashad/2nd Weight Sex Type Anes PTL Lv 3 Current 2 Term 02/02/23 37w2d 3300 g M NORMAL SPONT EPI N MATTHEW 1 06/24/21 34w0d 2140 g M NORMAL SPONT EPI MATTHEW PAST MEDICAL HISTORY Problem list: Patient Active Problem List Diagnosis Date Noted Left chest pressure 03/23/2025 uterine contractions 03/23/2025 Vaginal discharge during in third trimester 03/07/2025 36 weeks gestation of 03/07/2025 Decreased movements in third trimester, single or unspecified fetus 01/11/2025 History of delivery 10/09/2024 Asthma affecting , antepartum 10/11/2022 Abnormal thyroid blood test 09/08/2022 High-risk in third trimester 07/03/2022 Obesity (BMI 30-39.9) 06/23/2021 Maternal varicella, non-immune 02/06/2021 Supervision of high risk , antepartum 02/05/2021 Operations: No past surgical history on file. Past Medical History: Diagnosis Date Asthma rescue inhaler Gestational hypertension 06/25/2021 CURRENT HEALTH STATUS Medications: Current Facility-Administered Medications Medication Dose Route Frequency Last Rate Last Admin betamethasone acet,sod phos (CELESTONE SOLUSPAN) 6 mg/mL injection 12 mg 12 mg Intramuscular Q24H 12 mg at 03/23/25 1816 Allergies and drug reactions: [place] [hydroxyprogest(pf)(preg presv)] HOME MEDICATIONS Medications Prior to Admission Medication Sig Dispense Refill Last Dose/Taking albuterol 90 mcg/actuation inhaler Inhale 2 Puffs every 4 (four) hours as needed for Wheezing or Shortness of Breath. 8.5 g 0 budesonide-formoteroL (SYMBICORT) 80-4.5 mcg/actuation inhaler Inhale 2 Puffs in the morning and 2 Puffs in the evening. 10.2 g 2 vitamin w/FA tablet Take 1 tablet by mouth in the morning. 100 tablet 3 03/06/2025 SOCIAL HISTORY Tobacco History: Social History Tobacco Use Smoking Status Never Smokeless Tobacco Never Drug History: Social History Substance and Sexual Activity Drug Use Never Alcohol History: Social History Substance and Sexual Activity Alcohol Use Never FAMILY HISTORY Family History Problem Relation Age of Onset No Significant Medical Problems Mother No Significant Medical Problems Father No Significant Medical Problems Sister Asthma Brother Arthritis NoFHx defects NoFHx Breast Cancer NoFHx Colon Cancer NoFHx Ovarian Cancer NoFHx Uterine Cancer NoFHx Cancer NoFHx Depression NoFHx Diabetes NoFHx Genetic NoFHx Heart NoFHx High cholesterol NoFHx Hypertension NoFHx Mental retardation NoFHx Neurological NoFHx Osteoporosis NoFHx Psychiatry NoFHx Other - see comments NoFHx REVIEW OF SYSTEMS General: negative Constitutional: negative Eyes: negative ENT/Mouth: negative Cardiovascular: negative Respiratory: negative Gastrointestinal:negative Genitourinary: see HPI Musculoskeletal: negative Skin/breast: negative Neurological: negative Psychiatric: negative Endocrine: negative Hemat/Lymph: negative Allergic/Immuno:none VITAL SIGNS BP: (109-114)/(62-77) Temp: [36.7 ?C (98.1 ?F)-36.9 ?C (98.4 ?F)] Temp source: Oral (03/23 1953) Pulse: [82-106] Resp: [16-18] SpO2: [99 %-100 %] Height: [157.5 cm (5' 2")] Weight: [84 kg (185 lb 3.2 oz)] BMI (calculated): [33.87] PHYSICAL EXAMINATIONS Gen: alert and oriented, well appearing, no distress CV: RRR, normal S1/S2, no m/r/g Resp: normal work of breathing, lungs CTAB Abd: gravid, soft, NTTP Ext: no calf tenderness or edema : Deferred REVIEW OF LABORATORY, PATHOLOGY, AND RADIOLOGY DATA Lab results: Type & Screen HIV Hep B Syphilis Chlamydia ABO & RH Date Value Ref Range Status 01/02/2025 AB POSITIVE Final No results found for: "HIVMULTIPLEX" No components found for: "HBSHBSAG" Syphilis IgG/IgM Date Value Ref Range Status 01/02/2025 Nonreactive Nonreactive Final C. trachomatis Nucleic Acid Date Value Ref Range Status 03/07/2025 Negative Negative Final IAT Date Value Ref Range Status 01/02/2025 Negative Final Varicella Rubella Glucose Group B Strep CBC VZV IgG antibody Date Value Ref Range Status 06/24/2022 Positive Negative Final Rubella screen IgG Date Value Ref Range Status 06/24/2022 Positive Negative Final GLUC 1 HR Date Value Ref Range Status 01/02/2025 134 120 - 170 mg/dL Final No results found for: "CGBS" HGB Date Value Ref Range Status 01/02/2025 12.4 11.6 - 15.0 g/dL Final HCT Date Value Ref Range Status 01/02/2025 37.1 35.7 - 45.2 % Final PLT Date Value Ref Range Status 01/02/2025 240 166 - 358 10*3/?L Final Active Hospital Problems Diagnosis Date Noted uterine contractions 03/23/2025 36 weeks gestation of 03/07/2025 Decreased movements in third trimester, single or unspecified fetus 01/11/2025 Supervision of high risk , antepartum 02/05/2021 Resolved Hospital Problems No resolved problems to display. Present on Admission: Supervision of high risk , antepartum Decreased movements in third trimester, single or unspecified fetus 36 weeks gestation of uterine contractions Placenta Accreta Screening Prior ? : No Prior Uterine Surgery?: No Placenta low lying/previa in current ? : No Screening outcome: A positive screening outcome indicates a history of prior delivery or prior uterine surgery, AND the presence of either a placenta low lying/previa or ultrasound suspicion of PASD in the current . Negative screening. ASSESSMENT AND PLAN Javan Garcia is a 24 year old at 36w4d who presents with decreased FM. Decreased FM - strip overall reactive and reassuring - patient appreciates normal movement and is reassured - BPP completed, pending read Irregular contractions - SVE remained unchanged at 1/50/ballotable - BMZ#1 given, follow-up tomorrow for BMZ#2 stable for discharge home with daily kick counts and strong labor precautions PVT of Dr. Harvey, please see OB Summary for more details Luis Antonio Harvey MD Narrative & Impression Exam: Ultrasound Biophysical Profile, 03/23/2025 4:00 PM. Ordering Physician: LUIS ANTONIO HARVEY. History: decreased movement . Technique: Ultrasound biophysical profile was performed, with evaluation of breathing, movement, tone, and amniotic fluid. Reactive nonstress test was not performed. Comparison: Biophysical profile 03/08/2025. Findings: Single intrauterine gestation is noted in cephalic presentation, with a heart rate of 150 beats/min. Placenta is anterior in location. Four-quadrant amniotic fluid index is 5.8-6.4 cm. The largest amniotic pocket is located in the right upper quadrant. Cervix is not visualized due to position. Biophysical profile: breathing 2/2 movement 2/2 tone 2/2 Amniotic fluid 2/2 Total score 8/8 IMPRESSION Impression: 1. Normal biophysical profile, with overall score of 8 out of 8. 2. CHARLES measured 5.8-6.4 cm with largest amniotic pocket in the right upper quadrant. RL: [id number] End of Report Low CHARLES: recommend PO hydration and daily kick counts. Patient will come tomorrow for BMZ#2. Will have patient follow-up in clinic on Mon/ for NST and will order a repeat CHARLES. Luis Antonio Harvey MD 03/23/2025 10:10 PM [facility] Procedure Notes Date/Time Note Provider Source 2025-04-04 10:20:22 Associated Order(s): Central Neuraxial Block Central Neuraxial Block Date/Time: 04/04/2025 10:20 AM Performed by: Reese Pastrana MD Authorized by: Reese Pastrana MD Patient Location: OB Reason for Block: OB request, Patient request, Labor analgesia, Surgical anesthesia and Post-op pain management Staff: Anesthesiologist: Reese Pastrana MD Performed by: anesthesiologist Preanesthetic Checklist: patient identified, IV checked, risks and benefits explained, monitors and equipment checked, timeout performed, pre-op evaluation, site marked and anesthesia consent Procedure: Type of Neuraxial: Epidural Epidural Description: 1st attempt Sterility Prep cap, drape, gloves, hand hygiene and mask Patient Position: sitting Prep: Betadine and patient draped Monitoring: heart rate, continuous pulse ox, heart rate / toco and NIBP Location: lumbar (1-5) Lumbar: L3-L4 Approach: midline Technique: JITENDRA air and catheter Guidance with: landmark technique} Epidural/Spinal [place] and/or Catheter: Epidural/Spinal Kit: BBraun Needle Type: Tuohy Needle Gauge: 17 G Needle Length: 3.5 in (8.89 cm) Needle Insertion Depth: 7 Catheter Type: multiport Catheter Size: 19 G Catheter at Skin Depth: 12 Number of Attempts: 1 Test Dose: lidocaine 1.5% with epinephrine 1-to-200,000 Dose: 5 cc Catheter Securement Method: surgical tape, Tegaderm, clear occlusive dressing and liquid medical adhesive Assessment: Block Outcome: patient tolerated procedure well Procedure Assessment: patient tolerated procedure well with no complications Notes: Patient consented and positioned sitting upright with instructions given regarding positioning and maintaining a sterile field. Patient prepped and draped in sterile fashion. Epidural kit opened and medications prepared utilizing sterile protocol. JITENDRA to Saline was used midline at L3L4 interspace. JITENDRA was at 7 cm attempts x 1. Catheter threaded smoothly, taped at skin at 12 cm. Negative aspiration of blood or CSF x 3. Negative Test dose. Epidural catheter secured in place using tegederm and tape while maintaining insertion site sterility. Pumps settings are continuous 12cc/hr PCEA 4cc- 15 mins lockout. 5 ml bolus was given initially. 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 Fall precautions provided, patient vocalized understanding and all questions answered. [facility] Notes Date/Time Note Provider Source 2025-04-05 10:34:55 This note was copied from a baby's chart. Evaluation Situation Follow up visit Background Baby Girl is 1 days old, born weighing 3265g, and has lost 3.37% of weight. Gestational Age: 38w2d at INFANT FEEDING STATUS Expressed breast milk supplementation via Formula supplementation via MATERNAL STATUS Pumping Hand expressing Assessment & Recommendation ASSISTANCE Mom denies problems with or latching so far. Mom attempting to breastfeed upon arrival. Infant latching on well. education provided. All questions answered. Mom does not have any other questions or concerns at this time. Mom instructed on how to contact [employer] for assistance with feedings or to answer questions while in the hospital. Mom verbalized understanding. Assessment (most recent) Assessment - 04/05/25 1000 General Information Visit Follow-up Mom's age (years) 24 years Gestational age 38 weeks 3 Parity 3 Living Children 3 Feeding plan Breast and Formula Breastfeed previously No Used pump previously No plans Undecided Breast Pump None Delivery method Infant Oral Assessment Oral assessment No changes from previous assessment Date of 04/04/25 Time of 1026 Infant location Mother Baby Unit Breast Assessment Breast Assessment No change from previous assessment Nipple & Areola Assessment Left Areola Pliable Right Areola Pliable Left Nipple Colostrum visible Right Nipple Colostrum visible Literature Resources Resources Understanding Mother and Baby Care Education hunger cues;On-demand feeds at least 8 or more over 24 hours;Diaper counts/color;Hand expression;Risk of formula supplementation;Signs of an effective latch;Pump frequency Handouts given [place] [employer] Observation Observed;Mom states latches well with no pain Interventions Motherlove nipple cream Follow up Mom will call staff Recommended Feeding Plan Recommended feeding plan On-demand , 8-12 times in 24 hours not to exceed 6 hours between feeds;Frequent [id number] time with parents;Pump/hand express minimum 8 times in 24 hours including nights. Pump for 15-25 min. OTHER $ SERVICES Follow-up PARVIZ Adams, RN, IBCLC Minesh Gerardo RN [facility] 2025-04-05 07:58:45 Problem: Falls, Risk of Goal: Absence of falls Outcome: Adequate for discharge Problem: Infection Risk Goal: Absence of infection Outcome: Adequate for discharge Problem: Bleeding, Risk of Goal: Absence of impaired coagulation signs and symptoms Outcome: Adequate for discharge Goal: Absence of active bleeding Outcome: Adequate for discharge Problem: Discharge Planning - Goal: Adequate for discharge Outcome: Adequate for discharge Goal: Mood stable Outcome: [facility] [place] 2025-04-04 20:57:44 Problem: Falls, Risk of Goal: Absence of falls Outcome: Progressing as expected Problem: Infection Risk Goal: Absence of infection Outcome: Progressing as expected Problem: Bleeding, Risk of Goal: Absence of impaired coagulation signs and symptoms Outcome: Progressing as expected Goal: Absence of active bleeding Outcome: Progressing as expected Problem: Discharge Planning - Goal: Adequate for discharge Outcome: Progressing as expected Goal: Mood stable Outcome: Progressing as expected Mariza Rice RN [facility] [place] 2025-04-04 19:21:29 Problem: Intrapartum process (including labor pain) Goal: Absence of or reduction of complications of labor Outcome: Resolved Goal: Able to cope with pain Outcome: Resolved Goal: Adequate to move to next level of care Outcome: Resolved Goal: Reduction in pain sensation Outcome: Resolved Problem: Falls, Risk of Goal: Absence of falls 04/04/20251920 by Pedro Ashley RN Outcome: Progressing as expected 04/04/2025 112 by Pedro Ashley RN Outcome: Progressing as expected Problem: Infection Risk Goal: Absence of infection 04/04/20251920 by Pedro Ashley RN Outcome: Progressing as expected 04/04/2025 1125 by Pedro Ashley RN Outcome: Progressing as expected Problem: Bleeding, Risk of Goal: Absence of impaired coagulation signs and symptoms 04/04/20251920 by Pedro Ashley RN Outcome: Progressing as expected 04/04/2025 112 by Pedro Ashley RN Outcome: Progressing as expected Goal: Absence of active bleeding 04/04/20251920 by Pedro Ashley RN Outcome: Progressing as expected 04/04/2025 112 by Pedro Ashley RN Outcome: Progressing as expected Problem: Discharge Planning - Goal: Adequate for discharge 04/04/20251920 by Pedro Ashley RN Outcome: Progressing as expected 04/04/2025 1125 by Pedro Ashley RN Outcome: Progressing as expected Goal: Mood stable 04/04/2025 1921 by Pedro Ashley RN Outcome: Progressing as expected 04/04/2025 1125 by Pedro Ashley RN Outcome: Progressing as expected [facility] [place] 2025-04-04 14:16:52 Patient: Javan Garcia Procedure Summary Date: 04/04/25 Room / Location: Anesthesia Start: 0900 Anesthesia Stop: 1129 Procedure: CENTRAL NEURAXIAL BLOCK Diagnosis: Scheduled Providers: Responsible Provider: Reese Pastrana MD Anesthesia Type: Epidural ASA Status: 2 Anesthesia Type: Epidural Last vitals BP 114/71 Temp Pulse 70 Resp SpO2 100 There were no known notable events for this encounter. Anesthesia Post Evaluation Patient location during evaluation: bedside Patient participation: complete - patient participated Level of consciousness: awake and alert Pain score: 0 Pain management: satisfactory to patient Multimodal analgesia pain management approach Airway patency: patent Cardiovascular status: acceptable and blood pressure returned to baseline Respiratory status: acceptable Hydration status: acceptable Comments: Motor blockade resolved. Denies nausea headache, hasn't voided AN-ANESTHESIOLOGY ANESTHESIOLOGIST [facility] [place] 2025-04-04 11:25:27 Problem: Intrapartum process (including labor pain) Goal: Absence of or reduction of complications of labor Outcome: Resolved Goal: Able to cope with pain Outcome: Resolved Goal: Adequate to move to next level of care Outcome: Resolved Goal: Reduction in pain sensation Outcome: Resolved Problem: Falls, Risk of Goal: Absence of falls Outcome: Progressing as expected Problem: Infection Risk Goal: Absence of infection Outcome: Progressing as expected Problem: Bleeding, Risk of Goal: Absence of impaired coagulation signs and symptoms Outcome: Progressing as expected Goal: Absence of active bleeding Outcome: Progressing as expected Problem: Discharge Planning - Goal: Adequate for discharge Outcome: Progressing as expected Goal: Mood stable Outcome: Progressing as expected [facility] 2025-04-04 11:19:31 Problem: Intrapartum process (including labor pain) Goal: Absence of or reduction of complications of labor Outcome: Resolved Goal: Able to cope with pain Outcome: Resolved Goal: Adequate to move to next level of care Outcome: Resolved Goal: Reduction in pain sensation Outcome: Resolved [facility] 2025-04-04 11:09:03 Problem: Intrapartum process (including labor pain) Goal: Absence of or reduction of complications of labor Outcome: Resolved Goal: Able to cope with pain Outcome: Resolved Goal: Adequate to move to next level of care Outcome: Resolved Goal: Reduction in pain sensation Outcome: Resolved [facility] 2025-04-04 11:07:23 Problem: Intrapartum process (including labor pain) Goal: Absence of or reduction of complications of labor Outcome: Resolved Goal: Able to cope with pain Outcome: Resolved Goal: Adequate to move to next level of care Outcome: Resolved Goal: Reduction in pain sensation Outcome: Resolved [facility] 2025-04-04 10:44:32 VAGINAL DELIVERY NOTE Delivery Date: 04/04/2025 Delivery Time: 10:26 AM Delivery Summary Pre-delivery diagnosis: The patient was admitted to the Labor & Delivery unit for delivery at 38 weeks due to labor. Post-delivery diagnosis: s/p Ori-justice Weight: 3265 g 1 Minute 5 Minute 10 Minute Totals: 8 9 Cord gases obtained: NA Primary delivering: Luis Antonio Harvey MD Intrapartum Anesthesia/Analgesia: Epidural Labor Complications:None Additional Complications: None QBL: see I/O's Uterotonics: No TXA given: No Delivery of verdin fetus with cephalic presentation Shoulder Dystocia: No Operative Delivery: No Fetus Vaginal delivery of head with cephalic position, left occipital anterior. As the head crowned and distended the perineum, no episiotomy was performed. A blue towel was used to protect the perineum as the head crowned and delivered. The other hand was used to exert pressure on the occiput to control the delivery of the head. The perineum was pushed with a towel-draped hand as the head and mouth was delivered over the perineum. The head was allowed to rotate externally to achieve natural body posture. Examination of neck revealed no umbilical cord. The shoulder was delivered by gentle downward traction applied to head and downward traction for the delivery of anterior shoulder. This was followed by upward traction with delivery of posterior shoulder and body. After the delivery of infant, bulb suction was performed from oropharynx and nostril with removal of clear amniotic fluid. A normal, female was delivered. Delayed cord clamping done Yes. The umbilical cord was double clamped, cut and the infant was handed off the field to the circulating nurse Placenta Placenta was delivered spontaneously while the abdominal hand lifted the uterus cephalad and other hand keeping the umbilical cord slightly taut. Placenta delivered intact: yes Fourth Stage Fourth stage of labor was managed by uterine massage with abdominal hand and infusion 30 units of pitocin mixed with intravenous fluid. Laceration: Episiotomy: None Perineal Lacerations: None Other Lacerations:None: Laceration Repair: No laceration repair needed. Vaginal Counts: Initial count personnel: KATARZYNA OSHEA RN Initial count verified by: VICENTE LÓPEZ Initial Count 0 5 Added Counts 0 0 Final Count 0 5 Final count personnel: DR HARVEY Final count verified by: PEDRO ASHLEY RN Accurate final count? Yes Luis Antonio Harvey MD 04/04/2025 10:46 AM [facility] 2025-04-04 08:11:41 Name/ MRN / Age / Gender: Javan Garcia, [id number] 24 year old female BMI: Estimated body mass index is 33.89 kg/m? as calculated from the following: Height as of this encounter: 1.575 m (5' 2"). Weight as of this encounter: 84.1 kg (185 lb 4.8 oz). Allergies: Apache [hydroxyprogest(pf)(preg presv)] Last Vitals: BP Readings from Last 1 Encounters: 04/04/25 109/71 Pulse Readings from Last 1 Encounters: 04/04/25 84 SpO2 Readings from Last 1 Encounters: 04/04/25 100% Date of Surgery: 04/04/2025 Surgeon: * No surgeons listed * Procedure: CENTRAL NEURAXIAL BLOCK OR Location: [place] [facility] OUT OF OR - OR LOCATION Anesthesia Preop Eval (physical exam) Anesthesia Preop: [id number] and Chart Review NPO Status Verified Clear Liquids: > 2 Hours Solid Food/Non-Clear Liquids: > 8 Hours PONV Risk Factors: female and non-smoker Anesthesia History Anesthesia History Negative Previous Anesthetics/Airways Additional Comments: Epidural x 2 without incident Cardiovascular Negative Cardiac ROS (+) Hypertension Pulmonary (+) Asthma Neuro/Musculoskeletal (+) Obesity GI/Hepatic Negative GI/Hepatic ROS Hematology (+) Anemia and iron deficiency Renal Negative Renal ROS Skin Negative Skin ROS (+) Current IV access and 18g Endo/Other Negative Endo/Other ROS Other OPTIMIZATION CONSULTANT P: 2 Gestational Age: 38 wks 2 days Pediatric Pediatric N/A N/A Preoperative Medication Instructions Continue taking all prescribed medications except: ROMANA inhibitors, ARBs, diuretics, all oral diabetes medications Anticoagulant Therapy: Defer to surgeons Insulin: Take 1/2 dose the night prior to surgery. Hold on DOS. Phentermine: Alert [facility] anesthesiologist SGLT2 Inhibitors: "gliflozins" to be held for 3 days prior to elective surgeries GLP1 Agonosit: stop 7 days prior to surgery MAC Cases: Continue taking ROMANA inhibitors and ARBs ASA Classification ASA: 2 Labs: Chemistry 12/02/2024 CBC 01/02/2025 132 (L) 108 6 (L) 80 9.35 12.4 240 4.3 21 (L) 0.29 (L) 37.1 eGFR: 154.3 Date: 12/02/2024 ANC: 6.58 Date: 01/02/2025 LFTs 12/02/2024 Coags AST: 26 AP: 51 Prot: 7.3 Ca: 9.0 PT: - Date: - ALT: 16 T Daniel: 0.4 Alb: 3.8 PTT: - Date: - PO4: - Date: - INR: - Date: - Cardiac Endocrine & other pBNP: - Date: - A1C: - Date: - Trop I: - Date: - POCT A1C: - Date: - CK: - Date: - TSH: - Date: - CKMB: - Date: - FT4: - Date: - LDL: - Date: - Lact: - Date: - Procal: - Date: - Respiratory -|-|-|-|- D-dimer: - ABG Date: - Date: - Miscellaneous Type and Screen: AB POSITIVE Antibody: Negative Date: 01/02/2025 POCT : Negative Date: 03/23/2023 Current Medications: No outpatient medications have been marked as taking for the 04/04/25 encounter (Hospital Encounter). Previous Surgeries: No past surgical history on file. Anesthesia Physical Exam General alert and oriented x 3 Neuro/Psych neurological Dental no notable dental hx Abdominal (+) gravid Airway Mallampati score:II TM distance:> 5 cm Neck ROM: full Mouth opening:normal Extremity Normal extremity Pulmonary pulmonary exam normal Other Cardiovascular cardiovascular exam normalRhythm:regular Rate: normal Anesthesia Plan ASA Status: 2 Plan discussed during pre-op evaluation: General, Epidural, Spinal and CSE Anesthetic plan on DOS: Epidural Anesthesia plan discussed with: patient or volunteer patient representative Post-Operative Analgesia: routine analgesia & antiemetics Recovery Plan: LDR Additional comments: I reviewed the preoperative history,labs, medications, and pertinent studies and performed a physical exam perioperative. The anesthetic plan is neuraxial. I discussed this anesthetic plan with all of its components at length with the patient including the risks, benefits, and alternatives.I answered all of her questions and consent, ID, and NPO status were verified. This patient agrees with the plan and desires to proceed with surgery. [facility] [place] 2025-04-04 06:30:14 38w2d C/o ctx every 5 min Spotting of blood this AM OB: Harvey Report called to Angélica ZHANG in L&D Pt taken to L&D via wheelchair Dorothea Gaytan RN [facility] [place] 2025-04-04 06:27:00 [facility] Emergency Department Note Patient Name: Javan Garcia Date of : 2000 24 year old female Treatment Room: Room/bed info not found Primary Care Physician: PATIENT DOES NOT HAVE A PCP Patient Escorted by: Self [9] Mode of Arrival: Personal means [1] EMS Treatment Prior to ED Arrival: Travel and Exposure Screening: Symptoms Does patient have any of these symptoms?: (not recorded) Exposure Screening Has patient had contact with someone with a communicable disease in the last month?: (not recorded) Diseases exposed to:: (not recorded) Is Patient ?: (not recorded) Exposure Date: (not recorded) Chief Complaint: No chief complaint on file. History of Present Illness: History of Present Illness Javan Garcia is a 24 year old female at 38 3/7 weeks gestation presenting to the ED with contractions occurring every five minutes. Also reports vaginal spotting. Has good activity. No loss of mucous plug. No LOF History provided by: Patient and medical records diplomatic interpreter/translator used: No Past Medical History/Immunizations: Past Medical History: Diagnosis Date Asthma rescue inhaler Gestational hypertension 06/25/2021 Allergies: Allergies Allergen Reactions Apache [Hydroxyprogest(Pf)(Preg Presv)] Swelling and Unknown - See comments Fever and pain at injection site Past Social History: Tobacco Use Never smoked or used smokeless tobacco. Vaping Use Never used Alcohol Use Never. Drug Use Never. Sexual Activity Sexually active; Partners: Male; Control/Protection: None. Past Surgical History: No past surgical history on file. Review of Systems: Review of Systems Constitutional: Negative. HENT: Negative. Eyes: Negative. Respiratory: Negative. Breasts: Negative. Cardiovascular: Negative. Gastrointestinal: Negative. Genitourinary: Negative. Musculoskeletal: Negative. Skin: Negative. Neurological: Negative. Psychiatric/Behavioral: Negative. All other systems reviewed and are negative. Endocrine: Endocrine negative Physical Exam: Physical Exam ED Triage Vitals [04/04/25 0629] Weight 84.1 kg (185 lb 4.8 oz) Actual or estimated Height 1.575 m (5' 2") BP Pulse 95 Resp 17 Temp Temp src SpO2 100 % Measured on Room air Physical Exam Constitutional: General: She is not in acute distress. Appearance: Normal appearance. She is well-developed and normal weight. She is not ill-appearing, toxic-appearing or diaphoretic. HENT: Head: Normocephalic and atraumatic. Nose: Nose normal. Mouth/Throat: Mouth: Mucous membranes are moist. Pharynx: Oropharynx is clear. No oropharyngeal exudate or posterior oropharyngeal erythema. Eyes: General: No scleral icterus. Right eye: No discharge. Left eye: No discharge. Extraocular Movements: Extraocular movements intact. Conjunctiva/sclera: Conjunctivae normal. Pupils: Pupils are equal, round, and reactive to light. Neck: Thyroid: No thyromegaly. Cardiovascular: Rate and Rhythm: Normal rate and regular rhythm. Pulses: Normal pulses. Heart sounds: Normal heart sounds. No murmur heard. Pulmonary: Effort: Pulmonary effort is normal. No respiratory distress. Breath sounds: Normal breath sounds. No stridor. No wheezing, rhonchi or rales. Chest: Chest wall: No tenderness. Abdominal: General: Bowel sounds are normal. There is no distension. Palpations: Abdomen is soft. Tenderness: There is no abdominal tenderness. There is no right CVA tenderness, left CVA tenderness, guarding or rebound. Comments: Gravid Uterus Musculoskeletal: General: No swelling, tenderness, deformity or signs of injury. Normal range of motion. Cervical back: Normal range of motion and neck supple. No rigidity or tenderness. Lymphadenopathy: Cervical: No cervical adenopathy. Skin: General: Skin is warm and dry. Capillary Refill: Capillary refill takes less than 2 seconds. Coloration: Skin is not jaundiced or pale. Findings: No bruising, erythema, lesion or rash. Neurological: General: No focal deficit present. Mental Status: She is alert and oriented to person, place, and time. Mental status is at baseline. Cranial Nerves: No cranial nerve deficit. Sensory: No sensory deficit. Motor: No weakness or abnormal muscle tone. Coordination: Coordination normal. Gait: Gait normal. Deep Tendon Reflexes: Reflexes normal. Psychiatric: Behavior: Behavior normal. Thought Content: Thought content normal. Judgment: Judgment normal. Radiology: No orders to display Lab Results: Lab Results - No data to display EKG: If EKG completed, see Procedure Note. Orders and Treatments: No orders of the defined types were placed in this encounter. No orders of the defined types were placed in this encounter. First Provider Eval: ED Events None AdmissionCare Guideline: Labor (Threatened / Suspected), Inpatient Based on the indications selected for the patient, the bed status of Inpatient was determined to be MET The following indications were selected as present at the time of evaluation of the patient: - Clinical Indications for Admission to Inpatient Care - Admission is indicated for 1 or more of the following: - Continued monitoring that requires inpatient care (ie, needed beyond observation care) AdmissionCare documentation entered by: Renato Hirsch [facility] [place], 28th edition, Copyright ? 2023 [facility] Anna Lozabai All Rights Reserved. [id number]:00 ED COURSE Diagnosis/Impression as of 04/04/25 0641 Normal labor Results Procedures: Procedures MDM: Assessment & Plan Medical Decision Making Javan Garcia is a 24 year old female who is at term presenting to the ED with uterine contractions occurring Q 5 minutes Problems Addressed: Normal labor: acute illness or injury Details: Will send pt to L&D for further nmanagement Risk Decision regarding hospitalization. Flowsheet Documentation: Scoring Tools: No data recorded Disposition/Condition: ED Disposition ED Disposition Transfer - Internal L&D Condition Stable Comment -- Discharge Medications: Current Discharge Medication List CONTINUE these medications which have NOT CHANGED Details metroNIDAZOLE 500 mg tablet Take 1 tablet by mouth in the morning and 1 tablet in the evening. Qty: 14 tablet, Refills: 0 Associated Diagnoses: BV (bacterial vaginosis) albuterol 90 mcg/actuation inhaler Inhale 2 Puffs every 4 (four) hours as needed for Wheezing or Shortness of Breath. Qty: 8.5 g, Refills: 0 Associated Diagnoses: History of asthma; Short of breath on exertion budesonide-formoteroL (SYMBICORT) 80-4.5 mcg/actuation inhaler Inhale 2 Puffs in the morning and 2 Puffs in the evening. Qty: 10.2 g, Refills: 2 Associated Diagnoses: Asthma affecting in third trimester vitamin w/FA tablet Take 1 tablet by mouth in the morning. Qty: 100 tablet, Refills: 3 Associated Diagnoses: Supervision of high risk , antepartum; Liveborn , of verdin , born in hospital by vaginal delivery; Oligohydramnios in third trimester, single or unspecified fetus; 37 weeks gestation of Follow-up: Electronically signed by: Renato Hirsch MD 04/04/25 0641 [facility] [place] 2025-04-04 06:27:00 AdmissionCare Guideline: Labor (Threatened / Suspected), Inpatient Based on the indications selected for the patient, the bed status of Inpatient was determined to be MET The following indications were selected as present at the time of evaluation of the patient: - Clinical Indications for Admission to Inpatient Care - Admission is indicated for 1 or more of the following: - Continued monitoring that requires inpatient care (ie, needed beyond observation care) AdmissionCare documentation entered by: [facility] [place], 28th edition, Copyright ? 2023 [facility] Anna Lozabai All Rights Reserved. [id number] [facility] [place] 2025-03-30 09:45:00 Age: [age] year old GA: 37w4d Doing well without concerns Desires SVE -SVE /ballotable -labor precautions given History of delivery x 1 -Status post cervical length screening Asthma -Never been hospitalized or intubated -Last attack was in high school -Budesonide inhaler and albuterol inhaler as needed desires induction at 39 weeks. Tentatively plan for 04/10/2025 unless clinically indicated otherwise Ultrasoundn 03/26/25: EFW 6 lbs 14 oz, 57%tile. CHARLES 9.57 cm GBS negative on 03/07/2025 Daily kick counts and labor precautions given RTC in 1 wk for PN [facility] 2025-03-24 07:09:47 Report given to Prachi Rangel. Pt taken to l and d via wheelchair with RN. [facility] 2025-03-24 07:04:46 Patient states: "Around 6 am I started having contractions. I went to the bathroom and there was some brown mucus" OB: Harvey G 3 P 2 A0 Vaginal deliveries. Reports being 36 weeks Colette Serrano RN [facility] [place] 2025-03-24 06:01:00 Regardin weeks -looks like loosing mucus plug and mild cramping ----- Message from Patient Manager Medical sent at 03/24/2025 6:01 AM CDT ----- Javan Garcia is a 24 year old female Fani Meza RN [facility] [place] 2025-03-24 06:01:00 Triage Assessment Last Clinic Visit: 03/23/2025-Routine visit and visit to L&D. Primary Symptom: Brown discharge Onset / Duration: Began this morning Location / Description: Thick mucous brownish in color with some abdominal cramping. Pain / Severity: 3/10 abdominal cramping Associated Symptoms: Abdominal cramping that is constant along with lower back pain. Fever / Method: Denies Hydration: 3-42 oz water daily, urinating normally, denies any pain. Treatment so far: Nothing done Effect on ADL's: Some Gestational Weeks: 36.6 wks Rupture Membranes: Denies Bleeding / Spotting / Pads per hour: Thick brownish colored mucous. Movement: Good movement felt Para / : EDC: 04/12/2025 Pre-existing condition / Immunocompromised: Pre-term labor with both previous Reason for Disposition Pinkish or brownish mucous discharge (Exception: Brief spotting after intercourse or pelvic exam.) Protocols used: - Labor - [id number] Patient calls with complaints of brownish colored mucous when wiping. RN reviews - Labor - Preter-Adult Protocol and advises patient go to L&D for further evaluation and another adult should drive. Patient verbalizes understanding and will have a family member drive her to [facility] L&D. [facility] 2025-03-23 12:45:00 Age: [age] year old GA: 36w4d Decreased movement - States that she is concerned as has noticed decreased movement since Wednesday. States that she did kick counts and only had 3 movements in 2 hours. - heart tones 154 - To labor and delivery for prolonged monitoring and BPP - Daily kick counts and when to go to the hospital discussed extensively Left-sided chest pressure - States that she has left-sided chest pressure, located in the upper chest involving the left shoulder, for 1 week. Intermittent. - Vital signs within normal limits - Appeared to be musculoskeletal - Will continue to monitor Pelvic pressure and irregular contractions -SVE /ballotable - labor precautions given History of delivery x 1 -Status post cervical length screening Asthma -Never been hospitalized or intubated -Last attack was in high school -Budesonide inhaler and albuterol inhaler as needed desires induction at 39 weeks. Tentatively plan for 04/10/2025 unless clinically indicated otherwise This reviews what Dr. Harvey talked about at your 36 week talk: 1. Go to Labor and Delivery when your contractions are 5-7 minutes apart and you have been able to time them for an hour. If you live more than 30 minutes from the hospital, then go when they are 10 minutes apart and you have been able to time them for an hour. 2. BUT, there are 4 reasons to go to Labor and Delivery REGARDLESS of what else is happening, whether you are efren or not: 1. If your water breaks - - - it may be a gush or a constant trickle. If you are not sure, always come in to be checked. 2. Bleeding like your period. 3. If your baby's movements are less than 10 in an hour. If you are concerned this might be the case, drink a tall glass of cold fluids, lay down on your side on the couch or your bed and see how long it takes to note 10 movements - if less than 10, this needs to be evaluated immediately. 4. Contractions or Pain that is continuous. Normal labor contractions last only 45 seconds - 1 minute. cephalic presentation GC/CT and GBS obtained, CBC ordered Zika precautions reviewed Contraception PP: control patch Delivery consent signed today RTC in 1 wk for PN if discharged from labor and delivery [facility] [place] 2025-03-09 12:45:00 Age: [age] year old GA: 34w4d Pelvic pressure and irregular contractions - labor precautions given Was seen at [facility] L[facility]D on 03/07/25. Patient was diagnosed with BV but has not pick and shovel man medication yet. Reports vaginal discharge. History of delivery x 1 -Status post cervical length screening Asthma -Never been hospitalized or intubated -Last attack was in high school -Budesonide inhaler and albuterol inhaler as needed desires induction at 39 weeks. Tentatively plan for 04/10/2025 unless clinically indicated otherwise Daily kick counts Follow-up in 2 weeks for visit with [facility] 2025-03-07 15:21:29 Patient arrived ambulatory c/o leaking clear fluid since yesteryda that has been making her underwear damp. Happened in her other two pregnancies which was the start to her labor. , obgyn wes, 34 weeks 3 days. Gave report to Boy Henderson&D RN Martita Valenzuela RN [facility] 2025-03-07 14:24:32 Name and verified. Underwear has been "damp". Less movement. Sent pt to L&D. Just had ice cream and has not felt baby move. Last movement was at 12pm. Verbalized understanding. Ellie Esteban advised. NADEEN COTTER RN 03/07/2025 2:26 PM Nadeen Cotter RN [facility] 2025-03-07 14:14:04 Pt returning the call. Fe Quesada [facility] 2025-03-07 13:59:42 Lm on VM for pt to return call. NADEEN COTTER RN 03/07/2025 2:00 PM [facility] 2025-03-07 13:37:52 Pt has been experiencing clear fluid discharge since yesterday. Underwear is constantly wet, it looks like "water". Kaur Ceballos [facility] 2025-02-23 12:45:00 Age: [age] year old GA: 32w4d History of delivery x 1 -Status post cervical length screening Asthma -Never been hospitalized or intubated -Last attack was in high school -Budesonide inhaler and albuterol inhaler as needed desires induction at 39 weeks. Tentatively plan for 04/10/2025 unless clinically indicated otherwise Daily kick counts Follow-up in 2 weeks for visit with [facility] 2025-02-09 13:15:00 Age: [age] year old GA: 30w4d URI -Reports cough with nasal congestion for the past 3 days. Denies fever, chills, myalgia. Her child has an ear infection and her other child has a "cold". -Discussed antihistamine/allergy medication. Discussed adequate hydration and vitamin C -Urgent care/ER warnings given ?? LOF -States that she sometimes feel her underwear is wet for the past 2 weeks -Vaginal discharge noted on exam. PPROM ruled out. -Vaginal pathogen collected History of delivery x 1 -Status post cervical length screening Asthma -Never been hospitalized or intubated -Last attack was in high school -Budesonide inhaler and albuterol inhaler as needed desires induction at 39 weeks. Tentatively plan for 04/10/2025 unless clinically indicated otherwise Received Tdap vaccine today 3rd trimester teaching done- reviewed S/S of PTL (contractions, leakage of fluid and Vaginal bleeding) and also Kick Counts. Also dicussed Tc-Bello, pelvic and lower back pains- expectations and differenced with S/S of PTL Follow-up in 2 weeks for visit with [facility] 2025-01-11 10:35:10 Report given by VICENTE Fernandez to VICENTE Garsia. HEATER [facility] 2025-01-11 10:33:17 Patient here for decreased movement. Referred to the ER by Dr. Harvey. Patient is 26weeks, A0. R Soto RN [facility] 2025-01-11 09:46:12 Name and , verified, pt states she last felt baby movement yesterday morning. Pt states she has tried drinking cold liquids, and has eaten breakfast and still no movement. Pt denies any leakage of fluid, or bleeding. Advised pt to go to L&D, pt verbalized understanding and states it will be about 20 minutes. Merle Magallanes RN 01/11/2025 9:49 AM L&D report given, VICENTE Garsia RN 01/11/2025 9:50 AM HEATER Merle Magallanes RN [facility] 2025-01-11 09:36:54 Pt states she has not felt her baby move. HEATER Kaur Ceballos [facility] 2025-01-02 10:45:00 Loaded pt w 50gm lemon wiyot glucola, no issues. Draw time: 1142 [facility] 2025-01-02 10:45:00 Images from the original note were not included. Venipuncture collection performed by clean technique on the left anticubitus. Total of 1 attempts were made. Slight pressure and a bandage/dressing were applied to the site(s). The patient experienced no complications. The following specimens were processed according to instructions and sent to [facility] laboratories per lab order on 01/02/2025 : LT BLUE SST 3 RED LAV 2 PPT DK GREEN (LiHep) DK GREEN (SodH) VIERA DK BLUE (K2) DK BLUE (S) ACD Blood Culture NIPT/NTD [facility] 2024-12-29 12:30:00 Age: [age] year old GA: 24w4d Doing well without concerns UTI - on 12/01/24, s/p treatment - PARESH urine culture sent History of delivery x 1 -cervical length within normal limits on 11/30/2024 -Has follow-up ultrasound on 01/02/2025 Asthma -Never been hospitalized or intubated -Last attack was in high school -Budesonide inhaler and albuterol inhaler as needed Ultrasound scheduled on 01/02/25 28-week labs serologies ordered Follow-up in 4 weeks for visit HEATER [facility] 2024-12-15 13:56:[address] Harvey- Ok to send. NADEEN COTTER RN 12/15/2024 1:56 PM HEATER Nadeen Cotter RN [facility] 2024-12-15 12:03:55 Images from the original note were not included. Javan Garcia is a 24 year old female Pt states that the phar is requesting a new script be sent for the medication below. Thank you HEATER Marine Brock [facility] 2024-12-15 11:30:00 Age: [age] year old GA: 22w4d Patient was last seen at 13 weeks Received record from N -LMP 07/10/2024; HUGO by LMP 04/16/25 -Prepregnancy weight 165.2 pounds -10/03/2024: Hemoglobin 12.7, platelet 285, AB positive, antibody screen negative, Rubella immune, serologies neg, hemoglobin electrophoresis normal, hepatitis A total Ab positive, hepatitis A IgM nonreactive, UDS neg, Varicella immune, Pap negative, HPV negative, GC/CT negative Patient states that she has not pick and shovel man her antibiotics for UTI yet. Patient will pick it up today. Dyspnea of -Reports she feels short of breath sometimes with ambulation -Vital signs within normal limits. Breathing unlabored on exam -Discussed dyspnea -Will continue to monitor History of delivery x 1 -cervical length within normal limits on 11/30/2024 -Has follow-up ultrasound on 12/29/2024 Asthma -Never been hospitalized or intubated -Last attack was in high school -Budesonide inhaler and albuterol inhaler as needed Ultrasound on 11/30/2024:The biometry was consistent with the dates provided No obvious structural abnormalities noted. The cervix appeared normal, measuring 4.0 cm Panorama low risk female Horizon negative Maternal serum AFP not completed, out of window 28-week labs serologies ordered Follow-up in 4 weeks for visit [facility] 2024-12-15 11:30:00 Addended by: NADEEN COTTER RN on: 12/15/2024 01:45 PM Modules accepted: Orders [facility] 2024-12-02 18:06:59 Arrived on [facility] LDRP unit: Arrived to [facility] Date & Time: 12/02/2024 1:53 PM Oncall Physician: Primary Physician: CHIEF COMPLAINT: left side upper quadrant pain with occasional cramping HISTORY OF PRESENT ILLNESS AND/OR COMPLAINT Javan Garcia is a 24 year old female with G 3 P 2 EDC 04/16/25 = 20 5/7 WKS LAST FOOD INTAKE:yesterday LAST DRINK INTAKE: 1030 MEDICAL HISTORY Past Medical History: Diagnosis Date Asthma rescue inhaler Gestational hypertension 06/25/2021 SURGICAL HISTORY No past surgical history on file. FAMILY HISTORY Family History Problem Relation Age of Onset No Significant Medical Problems Mother No Significant Medical Problems Father No Significant Medical Problems Sister Asthma Brother Arthritis NoFHx defects NoFHx Breast Cancer NoFHx Colon Cancer NoFHx Ovarian Cancer NoFHx Uterine Cancer NoFHx Cancer NoFHx Depression NoFHx Diabetes NoFHx Genetic NoFHx Heart NoFHx High cholesterol NoFHx Hypertension NoFHx Mental retardation NoFHx Neurological NoFHx Osteoporosis NoFHx Psychiatry NoFHx Other - see comments NoFHx ALLERGIES: Umair [hydroxyprogest(pf)(preg presv)] MEDICATIONS Home Medications: Medications Prior to Admission Medication Sig Dispense Refill Last Dose vitamin w/FA tablet Take 1 tablet by mouth in the morning. 100 tablet 3 12/01/2024 budesonide-formoteroL (SYMBICORT) 80-4.5 mcg/actuation inhaler Inhale 2 Puffs in the morning and 2 Puffs in the evening. 10.2 g 2 > Month albuterol 90 mcg/actuation inhaler Inhale 2 Puffs every 4 (four) hours as needed for Wheezing or Shortness of Breath. 8.5 g 0 > Month Last meds taken: PNV last night HOSPITAL MEDICATIONS No current facility-administered medications for this encounter. SOCIAL HISTORY Social History Tobacco Use Smoking Status Never Smokeless Tobacco Never Social History Substance and Sexual Activity Alcohol Use Never Social History Substance and Sexual Activity Drug Use Never REVIEW OF SYSTEMS: See Nurses Flowsheets Specimens Obtained: CMP/CBC Urine dip done PIH S/S none SVE: Closed/floating OBIX EFM Strip: Fht's: Cat Dpppler with HR ranging 130's - 160's [place]: no contractions noted BP 104/63 | Pulse 89 | Temp 36.8 ?C (98.3 ?F) (Oral) | Resp 19 | Ht 1.575 m (5' 2") | Wt 75.3 kg (166 lb) | LMP 07/10/2024 (Exact Date) | SpO2 99% | BMI 30.36 kg/m? REVIEW OF LABORATORY, PATHOLOGY, AND RADIOLOGY DATA Lab results: CBC BMP PT/INR WBC (10*3/?L) Date Value 12/02/2024 13.03 (H) NA (mmol/L) Date Value 12/02/2024 132 (L) No results found for: "PT" RBC (10*6/?L) Date Value 12/02/2024 4.38 K (mmol/L) Date Value 12/02/2024 4.3 No results found for: "PTINR" PLT (10*3/?L) Date Value 12/02/2024 229 CALCIUM (mg/dL) Date Value 12/02/2024 9.0 HGB (g/dL) Date Value 12/02/2024 13.6 CL (mmol/L) Date Value 12/02/2024 108 aPTT HCT (%) Date Value 12/02/2024 40.2 BUN (mg/dL) Date Value 12/02/2024 6 (L) No results found for: "APTTPAT" CREATININE (mg/dL) Date Value 12/02/2024 0.29 (L) GLUCOSE (mg/dL) Date Value 12/02/2024 80 CO2 TOTAL (mmol/L) Date Value 12/02/2024 21 (L) Next scheduled appointment 12/05/24 Dr. Paul notified of patient's presentation to triage on 12/02/24 at 1525. PLAN: 1. Increase fiber 2. Drink more fluids 3. Follow up with Dr Harvey this coming week, pt already has appt scheduled HEATER Jael Herrera RN [facility] 2024-12-02 13:49:34 20 weeks , here for left sided abdominal pain and cramping. No bleeding, no trauma. , MD Mckeon. HX: denies. HEATER Gisela Adams RN [facility] 2024-12-02 12:48:00 Regarding: left side pain/ 20 wks. 5 days ----- Message from Patient Manager Medical sent at 12/02/2024 12:46 PM DOPE HEATER ----- Javan Garcia is a 24 year old female. Pt states she has BV and was given medication. Pt now has a sharp pain on her left side. Mikki Chavira 12/02/2024 12:45 PM HEATER Karen Bradford RN [facility] 2024-12-02 12:48:00 Nurse's Note: 12:55 PM Javan Garcia is a 24 year old female. Called patient. "Yesterday I went to the hospital in [place]. I was having bad pain on the side. I was given medication. Today I woke up and I am having bad cramps on the side." Triage Assessment Last Clinic Visit: in ED yesterday for pelvic pain Primary Symptom: pain Onset / Duration: this morning Location / Description: left abdomen radiates to right abdomen and to lower back Pain / Severity: 10/10, constant (described as "like when you're on your period") Associated Symptoms: denies Fever / Method: denies Hydration: had to drink today about 12 oz/last void this morning around 10 am Treatment so far: fluconazole (DIFLUCAN) tablet 200 mg taken yesterday in the hospital Effect on ADL's: significant change Gestational Weeks: 20w5d Rupture Membranes: denies Bleeding / Spotting / Pads per hour: denies Movement: has not felt movement today (normal movement compared to other days) Para / : EDC: 04/16/25 Pre-existing condition / Immunocompromised: history of delivery Reason for Disposition MODERATE-SEVERE abdominal pain (e.g., interferes with normal activities, awakens from sleep) Protocols used: - Abdominal Pain Greater Than 20 Weeks [id number] Disposition: After assessment and triage, patient advised would call provider python django developer. [address] Harvey for notification. No answer. Left a voicemail with call back number. [id number] Called patient and informed her to be taken to [facility] L&D for further evaluation and I would notify provider once she returned my call. Patient verbalized understanding. Karen Bradford RN 12/02/2024 1:20 PM [facility] 2024-12-01 15:40:01 Report called to Renee ZHANG at [facility] ADC L&D [facility] 2024-12-01 15:35:59 Pt arrived ambulatory without assist to ED. Pt c/o pain from left upper abd that spreads down into her pelvis, and decreased movement. Pt denies loss of fluids, bleeding, spotting, and loss of mucus plug. Pt reports having ultrasound yesterday to check fluids and was told the fluid level was good. OPTIMIZATION CONSULTANT: Dr. Harvey 20wk 5 days R Brady RN [facility] 2024-10-25 13:47:32 Received Horizon results via fax. Stamped and will be scanned/uploaded into pt's chart. NADEEN COTTER RN 10/25/2024 1:47 PM HEATER Nadeen Cotter RN [facility] 2024-10-17 11:51:53 Results sent through [employer]. John Young RN 10/17/2024 11:52 AM HEATER John Young RN [facility] 2024-10-17 11:04:45 Javan Garcia is a 23 year old female Patient would like a call back to go over results. Please assist and thank you, R Smith [facility] 2024-10-17 09:34:49 Panorama results received via fax. Stamped and uploaded to chart. John Young RN 10/17/2024 9:35 AM HEATER John Young RN [facility] 2024-10-17 09:06:08 Received record from [facility] -LMP 07/10/2024; [facility] by [facility] 04/16/25 -Prepregnancy weight 165.2 pounds -10/03/2024: Hemoglobin 12.7, platelet 285, AB positive, antibody screen negative, Rubella immune, serologies neg, hemoglobin electrophoresis normal, hepatitis A total Ab positive, hepatitis A IgM nonreactive, UDS neg, Varicella immune, Pap negative, HPV negative, GC/CT negative Luis Antonio Harvey MD 10/17/2024 9:11 AM [facility] 2024-10-16 13:39:20 Medical records received from [facility], placed on provider's desk for review. [facility] Suad Vicentenandez [facility] 2024-10-09 11:30:00 Meg only [facility] 2024-10-09 09:30:00 Age: [age] year old GA: 13w0d Nausea/vomiting -Controlled with Unisom/vitamin B6 -Continue Unisom/vitamin B6 as needed History of delivery x 1 -Serial cervical length screening ordered Left lower quadrant pain -Discussed round ligament pain. Advise maternity belt, rest prn, tylenol prn -Benign abdominal exam today -ER precautions reviewed Headaches -Reports intermittent headaches. States that headaches resolved with eating -Discussed importance of adequate hydration, caloric intake, adequate sleep, etc... May take Tylenol 1000 mg p.o. every 8 hours as needed headache -Will continue to monitor Asthma -Will obtain more information at next visit -Budesonide inhaler as needed Transabdominal USG for FHT: Single live IUP measured 13 1/7 weeks, consistent with LMP. Will date by Patient's last menstrual period was 07/10/2024 (exact date). unless clinically indicated otherwise Discussed do's and don'ts of , safe foods, safe medications. Reviewed Zika virus precautions. I discussed the call schedule and that I might not be the physician delivering her. I discussed I deliver my patients at [facility]. Expectations for weight gain this include 15-25 pounds. Encouraged to call if have any additional questions or concerns. Discussed aneuploidy and carrier screening; patient opts for panorama and Horizon. Discussed with patient that she can have HEALTHY support with her during her delivery (which is subject to change depends on the COVID pandemic) Declined flu vaccine today Release of record for N signed Follow-up in 4 weeks for visit with [employer] [facility] Follow-up in 8 weeks for visit with Harvey HEATER [facility] 2024-10-06 08:13:51 Noted Merle Magallanes RN 10/06/2024 8:13 AM HEATER Merle Magallanes RN [facility] 2024-10-06 08:10:40 New OB LMP 07/10/24 Pt will bring in records from prev provider R Greenwood [facility] Alex Loza [facility]
[2025-06-29] MEDS ORDERED: METOCLOPRAMIDE 10 MG/2mL INJ ONE (20:38)
[2025-06-29] MEDS ORDERED: KETOROLAC 30 MG/ML INJ ONE (20:38)
[2025-06-29] MEDS ORDERED: NA CHLORIDE 0.9% 1,000 ML ONE (20:38)
[2025-06-29] MEDS ORDERED: DIPHENHYDRAMINE 50 MG/ML VIAL ONE (20:38)
--- NOTE | 2025-06-29 21:09 | ER ---
Nurse's Notes [facility] Name: Yesy Mcdonnell Age: 24 yrs Sex: Female : 2000 Arrival Date: 06/29/2025 Time: 19:23 Bed 24 Private MD: Diagnosis: Headache Presentation: 06/29 19:34 Chief complaint: Patient states: reports intermittent Headaches that started 2 weeks me1 ago when a wooden box fell on her head. Today pain is a 9/10. Coronavirus screen: Vaccine status: Patient reports receiving the 2nd dose of the covid vaccine. Ebola Screen: No symptoms or risks identified at this time. Initial Sepsis Screen: Does the patient meet any 2 criteria? No. Patient's initial sepsis screen is negative. Does the patient have a suspected source of infection? No. Patient's initial sepsis screen is negative. Risk Assessment: Do you want to hurt yourself or someone else? Patient reports no desire to harm self or others. Onset of symptoms is unknown. 19:34 Method Of Arrival: [place] [facility] 19:34 Acuity: ZAIRA 4 me1 LOCOMOTIVE OPERATOR: 19:35 LMP 06/11/2025, unknown, 11 weeks . me1 Historical: - Allergies: 19:35 No Known Allergies; me1 - Home Meds: 19:35 None [Active]; me1 - PMHx: 19:35 None; me1 - PSHx: 19:35 None; me1 - Immunization history:: Adult Immunizations up to date. - Infectious Disease History:: Denies. - Social history:: Smoking status: Patient denies any tobacco usage or history of. Screenin:55 [facility] ED Fall Risk Assessment (Adult) History of falling in the last 3 months, jb4 including since admission No falls in past 3 months (0 pts) Confusion or Disorientation No (0 pts) Intoxicated or Sedated No (0 pts) Impaired Gait No (0 pts) Mobility Assist Device Used No (0 pt) Altered Elimination No (0 pt) Score/Fall Risk Level 0 - 2 = Low Risk Oriented to surroundings, Maintained a safe environment. Abuse screen: Denies threats or abuse. Nutritional screening: No deficits noted. Tuberculosis screening: No symptoms or risk factors identified. Assessment: 20:53 General: Appears in no apparent distress. uncomfortable, Behavior is calm, cooperative, jb4 appropriate for age. Pain: Complains of pain in right side of head Pain does not radiate. Pain currently is 8 out of 10 on a pain scale. Neuro: Level of Consciousness is awake, alert, obeys commands, Oriented to person, place, time, situation, Reports headache photophobia. Cardiovascular: Patient's skin is warm and dry. Respiratory: Airway is patent Respiratory effort is even, unlabored, Respiratory pattern is regular, symmetrical. Derm: Skin is intact, Skin is pink, warm \T\ dry. Musculoskeletal: Circulation, motion, and sensation intact. Range of motion: intact in all extremities. 21:10 Reassessment: Patient appears in no apparent distress at this time. Patient and/or jb4 family updated on plan of care and expected duration. Pain level reassessed. Patient is alert, oriented x 3, equal unlabored respirations, skin warm/dry/pink. Pt asked to have IV removed so she could leave. Reports feeling much better, denies VELEZ. Patient states feeling better. Patient states symptoms have improved. Vital Signs: 19:34 BP 121 / 76; Pulse 78; Resp 18; Temp 98.3; Pulse Ox 100% ; Weight 74.84 kg; Height 5 me1 ft. 2 in. ; Pain 9/10; 20:53 BP 114 / 75; Pulse 77; Resp 16; Pulse Ox 100% on R/A; jb4 19:34 Body Mass Index 30.18 (74.84 kg, 157.48 cm) me1 19:34 Pain Scale: Adult me1 ED Course: 19:26 Patient arrived in ED. im 19:32 Rajendra Gloria DO is Attending Physician. ms3 19:35 Triage completed. me1 19:35 Arm band placed on Patient placed in waiting room. me1 20:45 No provider procedures requiring assistance completed. Inserted saline lock: 20 gauge jb4 in right antecubital area, using aseptic technique. 20:53 Jose David Pritchard, VICENTE is Primary Nurse. jb4 20:55 Patient has correct armband on for positive identification. Bed in low position. Call jb4 light in reach. Side rails up X 1. Provided Education on: plan of care. 21:08 Pancho Cruz DO is Referral Physician. ms3 21:10 IV discontinued, intact, bleeding controlled, No redness/swelling at site. Pressure jb4 dressing applied. Administered Medications: 20:49 Drug: metoCLOPramide IVP 10 mg IVP once; over 1 to 2 minutes Route: IVP; Site: right jb4 antecubital; 21:11 Follow up: Response: No adverse reaction; Marked relief of symptoms jb4 20:49 Drug: NS 0.9% IV 1000 ml IV at 1 bolus Per protocol; to be given as a bolus over 60 jb4 minutes Route: IV; Rate: 1 bolus; Site: right antecubital; 21:11 Follow up: Response: No adverse reaction; IV Status: Pt refused remaining fluids.; IV jb4 Intake: 500ml 20:49 Drug: diphenhydrAMINE IVP 12.5 mg IVP once Route: IVP; Site: right antecubital; jb4 21:11 Follow up: Response: No adverse reaction; Marked relief of symptoms; Pain is decreased jb4 20:49 Drug: Ketorolac IVP 10 mg 10 mg IVP once Route: IVP; Site: right antecubital; jb4 21:11 Follow up: Response: No adverse reaction; Marked relief of symptoms; Pain is decreased jb4 Medication: 21:10 VIS not applicable for this client. jb4 Intake: 21:11 IV: 500ml; Total: 500ml. jb4 Outcome: 21:08 Discharge ordered by . ms3 21:10 Discharged to home ambulatory, with family, jb4 21:10 Condition: stable 21:10 Discharge instructions given to patient, Instructed on Pt left prior to receiving discharge instructions. 21:12 Patient left the ED. jb4 Signatures: Jose David Pritchard, RN RN jb4 Rajendra Gloria DO DO ms3 Eva Arteaga Michelle, RN RN me1
--- NOTE | 2025-06-29 21:09 | EDPHYS ---
Physician Documentation [facility] Name: Yesy Mcdonnell Age: 24 yrs Sex: Female : 2000 Arrival Date: 06/29/2025 Time: 19:23 Bed 24 Private MD: ED Physician Rajendra Gloria HPI: 06/29 21:08 This 24 yrs old Female presents to ER via Ambulatory with complaints of ms3 Headache. 21:08 24-year-old female with no past medical history presents to the emergency department ms3 for headache that is been intermittent for 2 weeks after a box fell on her head. Patient states the discomfort is in the sides and the top of her head. She rates her discomfort a 9/10. She denies any alleviating or inciting factors. Patient denies nausea, vomiting, loss of consciousness.. [employer]: 19:35 LMP 06/11/2025, unknown, 11 weeks . me1 Historical: - Allergies: 19:35 No Known Allergies; me1 - Home Meds: 19:35 None [Active]; me1 - PMHx: 19:35 None; me1 - PSHx: 19:35 None; me1 - Immunization history:: Adult Immunizations up to date. - Infectious Disease History:: Denies. - Social history:: Smoking status: Patient denies any tobacco usage or history of. ROS: 21:08 Constitutional: Negative for fever, and chills. Cardiovascular: Negative for chest ms3 pain, and palpitations. Respiratory: Negative for shortness of breath, cough, wheezing, and pleuritic chest pain, Abdomen/GI: Negative for abdominal pain, nausea, vomiting, diarrhea, and constipation, MS/Extremity: Negative for injury and deformity, Skin: Negative for injury, rash, and discoloration, 21:08 Neuro: Positive for headache, Exam: 21:08 Constitutional: This is a well developed, well nourished patient who is awake, alert, ms3 and in no acute distress. Cardiovascular: Regular rate and rhythm with a normal S1 and S2. No gallops, murmurs, or rubs. Normal PMI, no JVD. No pulse deficits. Respiratory: Lungs have equal breath sounds bilaterally, clear to auscultation and percussion. No rales, rhonchi or wheezes noted. No increased work of breathing, no retractions or nasal flaring. Abdomen/GI: Soft, non-tender, with normal bowel sounds. No distension or tympany. No guarding or rebound. No evidence of tenderness throughout. 21:08 Neuro: Orientation: is normal, to person, place, time \T\ situation. Mentation: is normal, Memory: is normal, Cranial nerves: CN I not tested, CN II- XII are normal as tested, Cerebellar function: is grossly normal, normal finger to nose testing, Motor: is normal, Sensation: is normal, no obvious gross deficits, Gait: is steady, at a normal pace, Vital Signs: 19:34 BP 121 / 76; Pulse 78; Resp 18; Temp 98.3; Pulse Ox 100% ; Weight 74.84 kg; Height 5 me1 ft. 2 in. ; Pain 9/10; 20:53 BP 114 / 75; Pulse 77; Resp 16; Pulse Ox 100% on R/A; jb4 19:34 Body Mass Index 30.18 (74.84 kg, 157.48 cm) me1 19:34 Pain Scale: Adult me1 MDM: 19:51 Medical Screening Exam initiated ms3 21:08 Differential diagnosis: intracerebral hemorrhage, sinusitis, tension headache. Data ms3 reviewed: vital signs, nurses notes, and as a result, I will discharge patient. I considered the following discharge prescriptions or medication management in the emergency department Medications were administered in the Emergency Department. See MAR. Counseling: I had a detailed discussion with the patient and/or guardian regarding the historical points, exam findings, and any diagnostic results supporting the discharge/admit diagnosis, the need for outpatient follow up, to return to the emergency department if symptoms worsen or persist or if there are any questions or concerns that arise at home. Special discussion: I discussed with the patient/guardian in detail that at this point there is no indication for admission to the hospital. It is understood, however, that if the symptoms persist or worsen the patient needs to return immediately for re-evaluation. ED course: On reevaluation patient states she is ready for discharge, alert and oriented x 4, no apparent distress, nontoxic-appearing, speaking full sentences, ambulatory Emergency Department. Less likely intracranial bleed as patient neurologic exam is normal, patient is without emesis, and symptoms have improved. Patient to follow-up with primary care physician in 2 to 3 days. Patient understands and agrees with plan. All questions were answered. Return precautions discussed include worsening symptoms, or any other concerns. Administered Medications: 20:49 Drug: metoCLOPramide IVP 10 mg IVP once; over 1 to 2 minutes Route: IVP; Site: right jb4 antecubital; 21:11 Follow up: Response: No adverse reaction; Marked relief of symptoms jb4 20:49 Drug: NS 0.9% IV 1000 ml IV at 1 bolus Per protocol; to be given as a bolus over 60 jb4 minutes Route: IV; Rate: 1 bolus; Site: right antecubital; 21:11 Follow up: Response: No adverse reaction; IV Status: Pt refused remaining fluids.; IV jb4 Intake: 500ml 20:49 Drug: diphenhydrAMINE IVP 12.5 mg IVP once Route: IVP; Site: right antecubital; jb4 21:11 Follow up: Response: No adverse reaction; Marked relief of symptoms; Pain is decreased jb4 20:49 Drug: Ketorolac IVP 10 mg 10 mg IVP once Route: IVP; Site: right antecubital; jb4 21:11 Follow up: Response: No adverse reaction; Marked relief of symptoms; Pain is decreased jb4 Disposition Summary: 06/29/25 21:08 Discharge Ordered Notes: Location: Home ms3 Condition: Stable ms3 Diagnosis - Headache ms3 Followup: ms3 - With: Pancho Cruz DO - When: 2 - 3 days - Reason: Recheck today's complaints Discharge Instructions: - Discharge Summary Sheet ms3 - General Headache Without Cause ms3 Forms: - Medication Reconciliation Form ms3 - Antibiotic Education ms3 - Prescription Opioid Use ms3 - Patient Portal Instructions ms3 - Leadership Thank You Letter ms3 Signatures: Jose David Pritchard RN RN jb4 Rajendra Gloria DO DO ms3 Brandi Jacobsen, RN RN me1 Corrections: (The following items were deleted from the chart) 06/30 00:16 06/29 21:08 ED course: On reevaluation patient states she is ready for discharge, alert ms3 and oriented x 4, no apparent distress, nontoxic-appearing, speaking full sentences, ambulatory Emergency Department. Patient to follow-up with primary care physician in 2 to 3 days. Patient understands and agrees with plan. All questions were answered. Return precautions discussed include worsening symptoms, or any other concerns. ms3
[2025-06-30 01:21] VITALS: TEMP 98.3; O2SAT 100
[2025-06-30 01:23] VITALS: BP 114/75
== END 2025-06-29 21:12 | disposition home or self-care (01) ==
LOC: ER 19:23
DX: R51.9 Headache, unspecified (principal)
CPT/HCPCS: 96375; 96374; 99284; J2765; J1200; J7030